=== PATIENT | female | born 1965 | race Caucasian/White ===

== ENCOUNTER 2017-02-02 06:13 | Outpatient (CLI) | payer MEDICAID ==
[~2017-02-02] VITALS: Ht 160 cm; Wt 56.7 kg
[2017-02-02] VITALS (12 sets, daily range): BP systolic 104–139; BP diastolic 69–94
[2017-02-02] MEDS ORDERED: IV NORMAL SALINE 1000ML BAG 1,000 ML IV SCH (06:38)
[2017-02-02 07:24] LABS: HEMOGLOBIN 13.8 g/dL (12.0-15.5); RED BLOOD COUNT 4.18 x10^6/uL (3.50-5.40); RED CELL DISTRIBUTION WIDTH 13.5 % (11.5-14.5); WHITE BLOOD COUNT 7.6 x10^3/uL (4.0-11.0)
[2017-02-02] MEDS ORDERED: LIDOCAINE 2% 20 ML VIAL. ONE (07:28)
[2017-02-02] MEDS ORDERED: IOHEXOL 350 MG/ML 100 ML VIAL. ONE (07:28)
[2017-02-02] MEDS ORDERED: HEPARIN for ARTERIAL LINE 1,500 ML ONE (07:28)
[2017-02-02 07:31] LABS: CALCIUM 9.5 mg/dL (8.5-10.1); CREATININE 0.6 mg/dL (0.6-1.0); POTASSIUM 3.9 mmol/L (3.5-5.1)
[2017-02-02] MEDS ORDERED: CYCL10TA2 PO (07:41)
[2017-02-02] MEDS ORDERED: ASPI81TA2 PO (07:41)
[2017-02-02] MEDS ORDERED: NAPR500T3 PO (07:41)
[2017-02-02] MEDS ORDERED: ATOR10TA60 PO (07:41)
[2017-02-02] MEDS ORDERED: VENL75CA PO (07:41)
[2017-02-02] MEDS ORDERED: ASPIRIN 325 MG TABLET PO ONE (07:45)
[2017-02-02 07:47] LABS: INR 0.9 (0.8-1.1); PROTHROMBIN TIME PATIENT 11.3 SEC (11.7-14.0)
[2017-02-02] MEDS ORDERED: VERAPAMIL 5 MG/2 ML VIAL. ONE (08:09)
[2017-02-02] MEDS ORDERED: NITROGLYCERIN 200 MCG/2 ML SYRINGE FOR CATH/VASC LAB. ONE (08:09)
[2017-02-02] MEDS ORDERED: HEPARIN for IV BOLUS 10,000 UNIT/10 ML VIAL. ONE (08:09)
[2017-02-02] MEDS ORDERED: FENTANYL PF 100 MCG/2 ML VIAL. ONE (08:09)
[2017-02-02] MEDS ORDERED: MIDAZOLAM HCL/PF 2 MG/2 ML VIAL. ONE (08:09)
[2017-02-02] MEDS ORDERED: NITROGLYCERIN 200 MCG/2 ML SYRINGE FOR CATH/VASC LAB. IART ONE (08:45)
[2017-02-02] MEDS ORDERED: HEPARIN for IV BOLUS 10,000 UNIT/10 ML VIAL. IART ONE (08:45)
[2017-02-02] MEDS ORDERED: FENTANYL PF 100 MCG/2 ML VIAL. IV ONE (08:45)
[2017-02-02] MEDS ORDERED: IOHEXOL 350 MG/ML 100 ML VIAL. IART ONE (08:45)
[2017-02-02] MEDS ORDERED: LIDOCAINE 2% 20 ML VIAL. IJ ONE (08:45)
[2017-02-02] MEDS ORDERED: VERAPAMIL 5 MG/2 ML VIAL. IART ONE (08:45)
[2017-02-02] MEDS ORDERED: MIDAZOLAM HCL/PF 2 MG/2 ML VIAL. IV ONE (08:45)
[2017-02-02] MEDS ORDERED: ACETAMINOPHEN 325 MG TABLET. PO PRN (09:00)
[2017-02-02] MEDS ORDERED: NITROGLYCERIN SUBLINGUAL 0.4 MG BOTTLE OF 25. SL PRN (09:00)
[2017-02-02] MEDS ORDERED: CONTRAST GIVEN MC PRN (09:00)
[2017-02-02] MEDS ORDERED: 0.9 % SODIUM CHLORIDE 10 ML DISP.SYRIN. IV PRN (09:00)
[2017-02-02] MEDS ORDERED: SULFUR HEXAFLUORIDE MICROSPHR 25 MG VIAL. IVP ONE ×2 (09:13→10:00)
--- NOTE | 2017-02-02 10:02 | CARD ---
APPROVED REPORT Procedure(s) performed: Coronary angiography HISTORY : The patient is a 51 year-old female with a history of . INDICATION The indication(s) include : positive stress test. PROCEDURE NARRATIVE The patient was brought electively to the cardiac catheterization lab. A timeout was performed confi rming the patient's name, date of , procedure, and site of procedure. All necessary personnel w ere wearing the appropriate protective equipment and radiation monitor devices. After explaining the risks and benefits of the procedure and alternatives, informed consent was obtained. (See nursing no zahra for medications administered). The right wrist was sterilely prepped and draped in the usual fas hion. The right wrist was infiltrated with 1 mL of 2% lidocaine for subcutaneous anesthesia. A 6 Fr ench Terumo glide sheath was inserted into the right radial artery without difficulty. Right and lef t coronary angiography was performed using a 6Fr TIG 4.0 catheter. Left ventricular end diastolic pr essure was unable to be obtained due to tortuousity and short aortic arch. All catheter exchanges an d advancements were performed over a guidewire. At case completion the right radial sheath was remov ed and a Terumo radial band was applied with 11 ml of air. The patient tolerated the procedure well and there were no immediate complications. HEMODYNAMICS: LVEDP 18 mm Hg No gradient on LV to aortic pullback. CORONARY ANGIOGRAPHY: LM is a large caliber vessel with normal angiographic appearance. LAD is a large caliber vessel with mild diffuse luminal irregularities and a proximal to mid 30% sten osis. There is mild mid myocardial bridging. Ramus is a moderate caliber vessel with normal angiographic appearance. LCx is a moderate caliber non-dominant vessel with normal angiographic appearance. OM1 is a moderate caliber vessel with normal angiographic appearance. RCA is a large caliber dominant vessel with normal angiographic appearance. RPDA and RPL are moderate caliber vessels with normal angiographic appearance.
--- NOTE | 2017-02-02 14:58 | CARD ---
APPROVED REPORT EXAM: LIMITED Two-dimensional echocardiogram with contrast. Other Information Quality : Average Rhythm : NSR INDICATION LV Function:Systolic Echo Enhancing Agent Indication: Endocardial border delineation Agent/Amount Used: Lumason 2mL LEFT VENTRICLE The left ventricle is normal size. There is normal left ventricular wall thickness. Left ventricle sy stolic function is mildly impaired. The Ejection Fraction is 40-45%. Akinesis in the septum, mid to d istal anterior boogie and apex. RIGHT VENTRICLE The right ventricle is normal size. The right ventricular systolic function is normal. ATRIA The left atrium size is normal. The right atrium size is normal. GREAT VESSELS The aortic root is normal in size. PERICARDIAL EFFUSION There is no evidence of significant pericardial effusion. Critical Notification Critical Value: No <Conclusion> Left ventricle systolic function is mildly impaired. The Ejection Fraction is 40-45%. Akinesis in the septum, mid to distal anterior boogie and apex. Limited echo for LV wall motion and function only.
== END 2017-02-02 11:20 | disposition home or self-care (01) ==
LOC: CCL 06:13
PROVIDERS: ATTEND Internal Medicine Cardiovascular Disease
DX: I25.10 Atherosclerotic heart disease of native coronary artery without angina pectoris (principal); Q24.5 Malformation of coronary vessels; E78.00 Pure hypercholesterolemia, unspecified; K21.9 Gastro-esophageal reflux disease without esophagitis; F41.9 Anxiety disorder, unspecified; F32.9 Major depressive disorder, single episode, unspecified; Z72.0 Tobacco use
CPT/HCPCS: 36415; 80048; 85027; 85610; 93308; 93454; C1769; C1892; J2250; J3010; J3490; J7030; Q9967; C8924; Q9950

== ENCOUNTER 2021-01-17 18:58 | Inpatient (IN) | payer MEDICAID ==
[2021-01-17] VITALS (9 sets, daily range): BP systolic 74–122; BP diastolic 41–83
[~2021-01-17] VITALS: Ht 170.2 cm; Wt 52.3 kg
[~2021-01-17 18:58] MED LIST: ASPI-630 PO; ATOR10TA60 PO; CYCL10TA2 PO; NAPR-514 PO; VENL75CA PO
[2021-01-17] MEDS ORDERED: HALOPERIDOL LACTATE 5 MG/ML VIAL. IVP PRN (21:15)
[2021-01-17] MEDS ORDERED: diphenhydrAMINE 50 MG/ML VIAL IVP PRN (21:15)
[2021-01-17] MEDS ORDERED: NOREPINEPHRINE VIAL 8 MG in IV DEXTROSE 5% 250 ML IV PRN (21:45)
[2021-01-17] MEDS ORDERED: POTASSIUM CL 40MEQ IN 0.9%NACL 1,000 ML IV SCH (21:45)
[2021-01-17] MEDS: POTASSIUM CHLORIDE 20MEQ 100 ML IV SCH ×2 (21:56→23:31)
[2021-01-17] MEDS ORDERED: HYDR25TA PO (23:11)
[2021-01-17] MEDS ORDERED: CARV6.2511 PO (23:11)
[2021-01-17] MEDS ORDERED: DULO30CA2 PO (23:11)
[2021-01-18] VITALS (29 sets, daily range): BP systolic 90–149; BP diastolic 50–94
[2021-01-18] MEDS: POTASSIUM CL 40MEQ IN 0.9%NACL 1,000 ML IV SCH ×2 (03:19→16:54)
[2021-01-18 05:21] LABS: CALCIUM 6.8 mg/dL (8.5-10.1); CREATININE 1.7 mg/dL (0.6-1.0); GFR 31.1; MAGNESIUM 1.9 mg/dL (1.8-2.4)
[2021-01-18 05:25] LABS: POTASSIUM 2.8 mmol/L (3.5-5.1)
[2021-01-18] MEDS: POTASSIUM CHLORIDE 20MEQ 100 ML IV SCH ×4 (07:16→10:52)
[2021-01-18 07:36] LABS: BASO % 0 % (0-3); EOS % 0 % (0-3); HEMATOCRIT 30.2 % (36.0-47.0); HEMOGLOBIN 10.7 g/dL (12.0-15.5); LYMPH # 1.4 x10^3/uL (1.0-4.8); LYMPH % 14 % (24-48); MEAN CORPUSCULAR HEMOGLOBIN 38 pg (25-35); MEAN CORPUSCULAR HGB CONC 36 g/dL (31-37); MEAN CORPUSCULAR VOLUME 106 fL (79-100); MONO # 0.6 x10^3/uL (0.0-1.1); MONO % 5 % (0-9); NEUT # 8.6 x10^3/uL (1.8-7.7); NEUT % 81 % (31-73); PLATELET COUNT 63 x10^3/uL (140-400); RED BLOOD COUNT 2.86 x10^6/uL (3.50-5.40); RED CELL DISTRIBUTION WIDTH 16.4 % (11.5-14.5); WHITE BLOOD COUNT 10.7 x10^3/uL (4.0-11.0)
[2021-01-18] MEDS: ELECTROLYTE (ICU) PROTOCOL. MC SCH (09:00)
--- NOTE | 2021-01-18 12:06 | PDOC2 ---
CONSULT Date of Consult Date of Consult DATE: 01/18/21 TIME: 11:53 Reason for Consult Reason for Consult: UTI antibiotic management Referring Physician Referring Physician: Dr. Christian Identification/Chief Complaint Chief Complaint Sepsis Source Source: Chart review History of Present Illness Reason for Visit: 55-year-old female who is currently admitted to [facility] ICU .patient is a poor historian .she obtained from chart and medical staff . She presented to [facility] via EMS for suspected seizure. Patient was found to have fallen down 3-4 steps in the kitchen and hit her head without loss of consciousness by a witness at home. There was report of self-limiting seizure-like activity. There was a postictal phase reported. EMS was called. Patient was found tachycardic on their arrival and was noncooperative. Patient had received thiamine lorazepam. White count was 14.2. Lactate of 7.3. CK of 1657. Acetone was negative acetaminophen level was 2.0. UA showed 5-10 WBCs large blood. Patient was started on ceftriaxone. CT head showed no acute intracranial abdominal injury. Negative CT C-spine for acute traumatic injury. Chest x-ray showed no new region of airspace consolidation. Demonstration of distal right clavicle fracture again. There is also repeat demonstration of widening of the coracoclavicular space which could be associated ligamentous injury. Patient underwent central line placement in the left IJ. Patient was felt to have non-STEMI. Was transferred to [facility] ICU for further evaluation and treatment. Today patient is alert awake. Denies any pain. Remains confused. Asking for water. Denies any fever, nausea, vomiting, diarrhea, chest pain, abdominal pain or symptoms. Past Medical History Past Medical History Atrial fibrillation anxiety coronary artery disease depression fibromyalgia hyperlipidemia hypothyroidism history of [place] Social History Social History History of heavy smoking, heavy alcohol, no drug abuse Current Medications Current Medications Current Medications Potassium Chloride/Water 100 ml @ 100 mls/hr Q1H IV Last administered on 01/17/21at 23:31; Start 01/17/21 at 21:45; Stop 01/17/21 at 23:44; Status DC Lorazepam (Ativan Inj) 2 mg PRN Q1HR PRN IV For CIWA 8-14; Start 01/17/21 at 21:15 Lorazepam (Ativan Inj) 4 mg PRN Q1HR PRN IV For CIWA 15 or greater; Start 01/17/21 at 21:15 Haloperidol Lactate (Haldol Inj) 5 mg PRN Q4HRS PRN IVP Hallucinatns,Confusn,Delirium; Start 01/17/21 at 21:15 Diphenhydramine HCl (Benadryl) 25 mg PRN Q15MIN PRN IVP EPS symptoms 2'Haldol admin; Start 01/17/21 at 21:15 Lorazepam (Ativan Inj) 2 mg PRN Q15MIN PRN IV SEE COMMENTS; Start 01/17/21 at 21:15 Lorazepam (Ativan Inj) 4 mg PRN Q15MIN PRN IV SEE COMMENTS; Start 01/17/21 at 21:15 Lorazepam (Ativan Inj) 4 mg 1X ONCE IVP ; Start 01/17/21 at 21:45; Stop 01/17/21 at 21:46; Status DC Ceftriaxone Sodium (Rocephin) 1 gm Q24H IVP ; Start 01/18/21 at 21:00 Info (Icu Electrolyte Protocol) 1 ea DAILY MC Last administered on 01/18/21at 09:00; Start 01/18/21 at 09:00 Potassium Chloride/Sodium Chloride 1,000 ml @ 125 mls/hr Q8H IV ; Start at 21:45; Stop 01/17/21 at 22:10; Status DC Norepinephrine Bitartrate 8 mg/ Dextrose 258 ml @ 9.501 mls/ hr CONT PRN IV PER PROTOCOL; Start 01/17/21 at 21:45 Potassium Chloride/Sodium Chloride 1,000 ml @ 125 mls/hr Q8H IV Last administered on 01/18/21at 03:19; Start 01/18/21 at 00:00 Potassium Chloride/Water 100 ml @ 100 mls/hr Q1H IV Last administered on 01/18/21at 10:52; Start 01/18/21 at 06:45; Stop 01/18/21 at 10:44; Status DC Active Scripts Active Reported Carvedilol (Carvedilol) 6.25 Mg Tablet 6.25 Mg PO BIDWMEALS Hydroxyzine Hcl 25 Mg Tablet 1 Tab PO HS Cymbalta (Duloxetine Hcl) 30 Mg Capsule. 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 moves all 4 extremity Derm warm dry no generalized rash, callus present over both soles Psych calm cooperative Left IJ clean Vitals VITALS Vital Signs Date Time Temp Pulse Resp B/P (MAP) Pulse Ox O2 Delivery O2 Flow Rate FiO2 01/18/21 11:47 Room Air 01/18/21 11:10 93 19 111/72 (85) 98 01/18/21 08:12 98.6 98.6 Labs Labs Laboratory Tests Test 01/18/21 04:30 01/18/21 07:15 Sodium Level 128 mmol/L (136-145) Potassium Level 2.8 mmol/L (3.5-5.1) Chloride Level 91 mmol/L (98-107) Carbon Dioxide Level 26 mmol/L (21-32) Anion Gap 11 (6-14) Blood Urea Nitrogen 29 mg/dL (7-20) Creatinine 1.7 mg/dL (0.6-1.0) Estimated GFR (Cockcroft-Gault) 31.1 Glucose Level 64 mg/dL (70-99) Calcium Level 6.8 mg/dL (8.5-10.1) Magnesium Level 1.9 mg/dL (1.8-2.4) White Blood Count 10.7 x10^3/uL (4.0-11.0) Red Blood Count 2.86 x10^6/uL (3.50-5.40) Hemoglobin 10.7 g/dL (12.0-15.5) Hematocrit 30.2 % (36.0-47.0) Mean Corpuscular Volume 106 fL (79-100) Mean Corpuscular Hemoglobin 38 pg (25-35) Mean Corpuscular Hemoglobin Concent 36 g/dL (31-37) Red Cell Distribution Width 16.4 % (11.5-14.5) Platelet Count 63 x10^3/uL (140-400) Neutrophils (%) (Auto) 81 % (31-73) Lymphocytes (%) (Auto) 14 % (24-48) Monocytes (%) (Auto) 5 % (0-9) Eosinophils (%) (Auto) 0 % (0-3) Basophils (%) (Auto) 0 % (0-3) Neutrophils # (Auto) 8.6 x10^3/uL (1.8-7.7) Lymphocytes # (Auto) 1.4 x10^3/uL (1.0-4.8) Monocytes # (Auto) 0.6 x10^3/uL (0.0-1.1) Eosinophils # (Auto) 0.0 x10^3/uL (0.0-0.7) Basophils # (Auto) 0.0 x10^3/uL (0.0-0.2) Laboratory Tests Test 01/18/21 04:30 01/18/21 07:15 Sodium Level 128 mmol/L (136-145) Potassium Level 2.8 mmol/L (3.5-5.1) Chloride Level 91 mmol/L (98-107) Carbon Dioxide Level 26 mmol/L (21-32) Anion Gap 11 (6-14) Blood Urea Nitrogen 29 mg/dL (7-20) Creatinine 1.7 mg/dL (0.6-1.0) Estimated GFR (Cockcroft-Gault) 31.1 Glucose Level 64 mg/dL (70-99) Calcium Level 6.8 mg/dL (8.5-10.1) Magnesium Level 1.9 mg/dL (1.8-2.4) White Blood Count 10.7 x10^3/uL (4.0-11.0) Red Blood Count 2.86 x10^6/uL (3.50-5.40) Hemoglobin 10.7 g/dL (12.0-15.5) Hematocrit 30.2 % (36.0-47.0) Mean Corpuscular Volume 106 fL (79-100) Mean Corpuscular Hemoglobin 38 pg (25-35) Mean Corpuscular Hemoglobin Concent 36 g/dL (31-37) Red Cell Distribution Width 16.4 % (11.5-14.5) Platelet Count 63 x10^3/uL (140-400) Neutrophils (%) (Auto) 81 % (31-73) Lymphocytes (%) (Auto) 14 % (24-48) Monocytes (%) (Auto) 5 % (0-9) Eosinophils (%) (Auto) 0 % (0-3) Basophils (%) (Auto) 0 % (0-3) Neutrophils # (Auto) 8.6 x10^3/uL (1.8-7.7) Lymphocytes # (Auto) 1.4 x10^3/uL (1.0-4.8) Monocytes # (Auto) 0.6 x10^3/uL (0.0-1.1) Eosinophils # (Auto) 0.0 x10^3/uL (0.0-0.7) Basophils # (Auto) 0.0 x10^3/uL (0.0-0.2) Assessment/Plan Assessment/Plan Encephalopathy Seizure-like activity on presentation at [facility], no further seizure activity reported Sepsis now resolved Leukocytosis UTI Hematuria Anemia and thrombocytopenia Hypokalemia and hyponatremia, FRANCESCA Atrial fibrillation History of fall POA History of anxiety, depression Fibromyalgia Hyperlipidemia CAD Tobaccoism Heavy EtOH dependence Right distal clavicular fracture and widening of the coracoclavicular space which could be associated ligamentous injury Recommendations Continue Rocephin Follow-up labs and cultures Urine cultures negative so far from [facility] Maintain aspiration precaution Supportive care OZIEL LANGSTON MD Jan 18, 2021 12:06
[2021-01-18 12:54] LABS: BASO % 0 % (0-3); EOS % 0 % (0-3); HEMATOCRIT 30.5 % (36.0-47.0); HEMOGLOBIN 10.6 g/dL (12.0-15.5); LYMPH # 1.8 x10^3/uL (1.0-4.8); LYMPH % 17 % (24-48); MEAN CORPUSCULAR HEMOGLOBIN 37 pg (25-35); MEAN CORPUSCULAR HGB CONC 35 g/dL (31-37); MEAN CORPUSCULAR VOLUME 107 fL (79-100); MONO # 0.7 x10^3/uL (0.0-1.1); MONO % 7 % (0-9); NEUT # 8.1 x10^3/uL (1.8-7.7); NEUT % 76 % (31-73); PLATELET COUNT 67 x10^3/uL (140-400); RED BLOOD COUNT 2.84 x10^6/uL (3.50-5.40); RED CELL DISTRIBUTION WIDTH 16.5 % (11.5-14.5); WHITE BLOOD COUNT 10.7 x10^3/uL (4.0-11.0)
--- NOTE | 2021-01-18 12:59 | PDOC2 ---
CONSULT Date of Consult Date of Consult DATE: 01/18/21 TIME: 12:44 Reason for Consult Reason for Consult: FRANCESCA and E-Lyte abnormalities Identification/Chief Complaint Chief Complaint Currently No complaints, sleeping, hard to wake her up, INtermittent confusion per nursing Source Source: Chart review History of Present Illness Reason for Visit: 55-year-old CF admitted to [facility] ICU She presented to [facility] via EMS on 01/17 for suspected seizure. She was found to have fallen down 3-4 steps in the kitchen and hit her head without loss of consciousness by a witness at home. There was report of self-limiting seizure-like activity and postictal phase reported. EMS was called. Patient was found tachycardic on their arrival and was noncooperative. Patient had received thiamine lorazepam. I was paged by [facility] ER provider to discuss management plan for FRANCESCA and E-Lytes. . Patient was felt to have non-STEMI and transferred to [facility] patient is a poor historian .she obtained from chart and medical staff . No report of N/V/D. No SOB or CP. No reported urinary complaints. Lai placed at [facility] . Pt started on IVF, replaced e-Lytes, UA done as recommended Currently sleeping , difficult to arouse. Per nursing has been awake, intermittent confusion . Denies any pain. Remains confused. Asking for water. Denies any fever, nausea, vomiting, diarrhea, chest pain, abdominal pain or symptoms. White count was 14.2. Lactate of 7.3. CK of 1657. Acetone was negative acetaminophen level was 2.0. UA showed 5-10 WBCs large blood. Patient was started on ceftriaxone. CT head showed no acute intracranial abdominal injury. Negative CT C-spine for acute traumatic injury. Chest x-ray showed no new region of airspace consolidation. Demonstration of distal right clavicle fracture again. There is also repeat demonstration of widening of the coracoclavicular space which could be associated ligamentous injury. Past Medical History Past Medical History Atrial fibrillation anxiety coronary artery disease depression fibromyalgia hyperlipidemia hypothyroidism history of [place] Family History Family History Unable to Obtain 2/2 AMS and poor historian Social History Social History History of heavy smoking, heavy alcohol, no drug abuse Current Medications Current Medications Current Medications Potassium Chloride/Water 100 ml @ 100 mls/hr Q1H IV Last administered on 01/17/21at 23:31; Start 01/17/21 at 21:45; Stop 01/17/21 at 23:44; Status DC Lorazepam (Ativan Inj) 2 mg PRN Q1HR PRN IV For CIWA 8-14; Start 01/17/21 at 21:15 Lorazepam (Ativan Inj) 4 mg PRN Q1HR PRN IV For CIWA 15 or greater; Start 01/17/21 at 21:15 Haloperidol Lactate (Haldol Inj) 5 mg PRN Q4HRS PRN IVP Hallucinatns,Confusn,Delirium; Start 01/17/21 at 21:15 Diphenhydramine HCl (Benadryl) 25 mg PRN Q15MIN PRN IVP EPS symptoms 2'Haldol admin; Start 01/17/21 at 21:15 Lorazepam (Ativan Inj) 2 mg PRN Q15MIN PRN IV SEE COMMENTS; Start 01/17/21 at 21:15 Lorazepam (Ativan Inj) 4 mg PRN Q15MIN PRN IV SEE COMMENTS; Start 01/17/21 at 21:15 Lorazepam (Ativan Inj) 4 mg 1X ONCE IVP ; Start 01/17/21 at 21:45; Stop 01/17/21 at 21:46; Status DC Ceftriaxone Sodium (Rocephin) 1 gm Q24H IVP ; Start 01/18/21 at 21:00 Info (Icu Electrolyte Protocol) 1 ea DAILY MC Last administered on 01/18/21at 09:00; Start 01/18/21 at 09:00 Potassium Chloride/Sodium Chloride 1,000 ml @ 125 mls/hr Q8H IV ; Start 01/17/21 at 21:45; Stop 01/17/21 at 22:10; Status DC Norepinephrine Bitartrate 8 mg/ Dextrose 258 ml @ 9.501 mls/ hr CONT PRN IV PER PROTOCOL; Start 01/17/21 at 21:45 Potassium Chloride/Sodium Chloride 1,000 ml @ 125 mls/hr Q8H IV Last administered on 01/18/21at 03:19; Start 01/18/21 at 00:00 Potassium Chloride/Water 100 ml @ 100 mls/hr Q1H IV Last administered on 01/18/21at 10:52; Start 01/18/21 at 06:45; Stop 3/19/21 at 10:44; Status DC Active Scripts Active Reported Carvedilol (Carvedilol) 6.25 Mg Tablet 6.25 Mg PO BIDWMEALS Hydroxyzine Hcl 25 Mg Tablet 1 Tab PO HS Cymbalta (Duloxetine Hcl) 30 Mg Capsule. 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 moves all 4 extremity Derm warm dry no generalized rash Psych sleeping Lai +, No CVA or SP tenderness Vital Signs Vital Signs Date Time Temp Pulse Resp B/P (MAP) Pulse Ox O2 Delivery O2 Flow Rate FiO2 01/18/21 12:00 98.4 93 25 96/60 (72) 98 Room Air 98.4 Assessment & Plan FRANCESCA - Pre-renal/Vasomotor ,Low BP, Improving with IVF Cr 3.9 POA to 1.7 , Mildly elevated CK Supportive care, I/O, avoid nephrotoxins Monitor daily am labs and CK UTI - ID managing HypoNatremia- stable , continue IVF, monitor HypoKalemia- replacing HypoMg - severe POA, resolved post replacement Encephalopathy - Improved since presentation, currently intermittent confusion Seizure-like activity on presentation at [facility], no further seizure activity reported Anemia and thrombocytopenia Atrial fibrillation History of fall POA CAD Tobaccoism Heavy EtOH dependence- UDS positive for ETOH Right distal clavicular fracture and widening of the coracoclavicular space which could be associated ligamentous injury Labs Labs Laboratory Tests Test 01/18/21 04:30 01/18/21 07:15 Sodium Level 128 mmol/L (136-145) Potassium Level 2.8 mmol/L (3.5-5.1) Chloride Level 91 mmol/L (98-107) Carbon Dioxide Level 26 mmol/L (21-32) Anion Gap 11 (6-14) Blood Urea Nitrogen 29 mg/dL (7-20) Creatinine 1.7 mg/dL (0.6-1.0) Estimated GFR (Cockcroft-Gault) 31.1 Glucose Level 64 mg/dL (70-99) Calcium Level 6.8 mg/dL (8.5-10.1) Magnesium Level 1.9 mg/dL (1.8-2.4) White Blood Count 10.7 x10^3/uL (4.0-11.0) Red Blood Count 2.86 x10^6/uL (3.50-5.40) Hemoglobin 10.7 g/dL (12.0-15.5) Hematocrit 30.2 % (36.0-47.0) Mean Corpuscular Volume 106 fL (79-100) Mean Corpuscular Hemoglobin 38 pg (25-35) Mean Corpuscular Hemoglobin Concent 36 g/dL (31-37) Red Cell Distribution Width 16.4 % (11.5-14.5) Platelet Count 63 x10^3/uL (140-400) Neutrophils (%) (Auto) 81 % (31-73) Lymphocytes (%) (Auto) 14 % (24-48) Monocytes (%) (Auto) 5 % (0-9) Eosinophils (%) (Auto) 0 % (0-3) Basophils (%) (Auto) 0 % (0-3) Neutrophils # (Auto) 8.6 x10^3/uL (1.8-7.7) Lymphocytes # (Auto) 1.4 x10^3/uL (1.0-4.8) Monocytes # (Auto) 0.6 x10^3/uL (0.0-1.1) Eosinophils # (Auto) 0.0 x10^3/uL (0.0-0.7) Basophils # (Auto) 0.0 x10^3/uL (0.0-0.2) Laboratory Tests Test 01/18/21 04:30 01/18/21 07:15 Sodium Level 128 mmol/L (136-145) Potassium Level 2.8 mmol/L (3.5-5.1) Chloride Level 91 mmol/L (98-107) Carbon Dioxide Level 26 mmol/L (21-32) Anion Gap 11 (6-14) Blood Urea Nitrogen 29 mg/dL (7-20) Creatinine 1.7 mg/dL (0.6-1.0) Estimated GFR (Cockcroft-Gault) 31.1 Glucose Level 64 mg/dL (70-99) Calcium Level 6.8 mg/dL (8.5-10.1) Magnesium Level 1.9 mg/dL (1.8-2.4) White Blood Count 10.7 x10^3/uL (4.0-11.0) Red Blood Count 2.86 x10^6/uL (3.50-5.40) Hemoglobin 10.7 g/dL (12.0-15.5) Hematocrit 30.2 % (36.0-47.0) Mean Corpuscular Volume 106 fL (79-100) Mean Corpuscular Hemoglobin 38 pg (25-35) Mean Corpuscular Hemoglobin Concent 36 g/dL (31-37) Red Cell Distribution Width 16.4 % (11.5-14.5) Platelet Count 63 x10^3/uL (140-400) Neutrophils (%) (Auto) 81 % (31-73) Lymphocytes (%) (Auto) 14 % (24-48) Monocytes (%) (Auto) 5 % (0-9) Eosinophils (%) (Auto) 0 % (0-3) Basophils (%) (Auto) 0 % (0-3) Neutrophils # (Auto) 8.6 x10^3/uL (1.8-7.7) Lymphocytes # (Auto) 1.4 x10^3/uL (1.0-4.8) Monocytes # (Auto) 0.6 x10^3/uL (0.0-1.1) Eosinophils # (Auto) 0.0 x10^3/uL (0.0-0.7) Basophils # (Auto) 0.0 x10^3/uL (0.0-0.2) Review All relevant outside records, renal labs, imaging studies, telemetry/EKG's were reviewed. Images Images As per HPI NATACHA RIVERA MD Jan 18, 2021 12:59
[2021-01-18 13:02] LABS: CALCIUM 6.6 mg/dL (8.5-10.1); CREATININE 1.2 mg/dL (0.6-1.0); GFR 46.5; POTASSIUM 3.4 mmol/L (3.5-5.1)
--- NOTE | 2021-01-18 13:02 | HP ---
ADMIT DATE: 01/17/2021 CHIEF COMPLAINT: Seizure activity, hypotension. HISTORY OF PRESENT ILLNESS: The patient is a pleasant 55-year-old female who originally presented to [facility] last night apparently family members witnessed a seizure activity. There was a postictal state as well. Prior to the seizure, she had been drinking. She also fell and hit her head a couple times in the kitchen. While at [facility], they noticed that her troponin was little high as well. They were concerned she could have an acute CT. She was transferred here to our ICU where we have consulted Cardiology, Infectious Disease and Nephrology as she has renal failure. PAST MEDICAL HISTORY: Probable alcohol issues, hypertension, depression, anxiety. ALLERGIES: None. FAMILY HISTORY: Depression. SOCIAL HISTORY: She drinks. I am not sure if she smokes or takes drugs. MEDICATIONS: Reviewed. She is on carvedilol 6.25 b.i.d., Cymbalta 30 a day and hydroxyzine 25 at bedtime. REVIEW OF SYSTEMS: Unable to obtain. The patient is sedated. PHYSICAL EXAMINATION: VITALS: Within normal limits and are stable. GENERAL: She is sedated. HEENT: Normal cephalic atraumatic, external auditory canals are patent EYES: Extraocular muscles are intact, pupils are equally round and reactive to light and accommodation MUSCULOSKELETAL: Well developed, well nourished, good range of motion ENDOCRINE: No thyromegaly was palpated LYMPHATICS: No cervical chain or axillary nodes were noted HEMATOPOIETIC: No bruising NECK: Supple, no JVD, no thyromegaly was noted. LUNGS: Clear to auscultation in all lung klein without rhonchi or wheezing. HEART: RRR, S1, S2 present. Peripheral pulses intact, no obvious murmurs were noted. ABDOMEN: Soft, nontender. Positive bowel sounds no organomegaly, normal bowel sounds. EXTREMITIES: Without any cyanosis, clubbing, or edema. Pedal pulses intact, Homans sign is negative. NEUROLOGIC: She is sedated. PSYCHIATRIC: She is sedated. SKIN: No ulcerations or rashes, good skin turgor, no jaundice. VASCULAR: Good capillary refill, neurovascular bundle appears to be intact. LABORATORY DATA: Electrolytes: Sodium 128, potassium 2.8, chloride 91, bicarbonate 26, BUN 29, creatinine 1.7, glucose 64. White count 10.7, hemoglobin 10.7, platelets 63. IMAGING: Pending. ASSESSMENT AND PLAN: Probable alcohol issues with seizure activity, hypotension, severe electrolyte disturbance, acute kidney injury, possible myocardial infarction. The patient has been admitted to the ICU. We have consulted Cardiology, Nephrology, and Infectious Disease. She is receiving IV ceftriaxone, IV fluids. She is on Levophed drip, p.r.n. Ativan, alcohol withdrawal protocol, p.r.n. Haldol. Trend labs. Replace potassium, IV normal saline to help correct her hyponatremia. NASIMA hose lower extremities. Seizure precautions. Lai to bedside drainage. Cardiac monitoring, serial enzymes, serial EKGs. PROGNOSIS: Guarded. CC TIME: 32 minutes. NAVID SOLORZANO DO DR: [email or web address] JOB#: [id number] / [id number]
--- NOTE | 2021-01-18 14:58 | PDOC2 ---
CONSULT Date of Consult Date of Consult DATE: 01/18/21 TIME: 14:52 Reason for Consult Reason for Consult: Elevated troponin. Referring Physician Referring Physician: Dr. Christian Identification/Chief Complaint Chief Complaint Possible seizure. Source Source: Chart review, Patient History of Present Illness Reason for Visit: The patient is a 55-year-old female who had a reported out of hospital seizure. She was brought to the emergency room at [facility]. Initial testing showed a CT head scan that showed no acute changes, a CT exam of the spine that also showed no acute changes and a chest x-ray that showed no acute infiltrates. An EKG showed a sinus rhythm with some T wave inversion. Initial magnesium level was 0.8, lactic acid 7.3 and her troponin elevated 2.362. Patient was confused on admission and there is no reported report complaints of chest pain. He has a history of significant hypertension, alcohol abuse and a possible history of paroxysmal atrial fibrillation although she is in sinus rhythm at this time. She did have a cardiac catheterization on 02/02/17 that showed a 30% lesion in the LAD. She was transferred to [place] for further treatment and evaluation. She apparently is more comfortable this time but still is confused. She is being worked up by ID and renal at this time. Remains in a sinus rhythm. Past Medical History Cardiovascular: AFIB, CAD, HTN, Hyperlipidemia Past Surgical History Past Surgical History: No pertinent history Family History Family History: Heart Disease Social History 1 pack per day ALCOHOL: heavy Current Medications Current Medications Current Medications Potassium Chloride/Water 100 ml @ 100 mls/hr Q1H IV Last administered on 01/17/21at 23:31; Start 01/17/21 at 21:45; Stop 01/17/21 at 23:44; Status DC Lorazepam (Ativan Inj) 2 mg PRN Q1HR PRN IV For CIWA 8-14; Start 01/17/21 at 21:15 Lorazepam (Ativan Inj) 4 mg PRN Q1HR PRN IV For CIWA 15 or greater; Start 01/17/21 at 21:15 Haloperidol Lactate (Haldol Inj) 5 mg PRN Q4HRS PRN IVP Jovon lucinatns,Confusn,Delirium; Start 01/17/21 at 21:15 Diphenhydramine HCl (Benadryl) 25 mg PRN Q15MIN PRN IVP EPS symptoms 2'Haldol admin; Start 01/17/21 at 21:15 Lorazepam (Ativan Inj) 2 mg PRN Q15MIN PRN IV SEE COMMENTS; Start 01/17/21 at 21:15 Lorazepam (Ativan Inj) 4 mg PRN Q15MIN PRN IV SEE COMMENTS; Start 01/17/21 at 21:15 Lorazepam (Ativan Inj) 4 mg 1X ONCE IVP ; Start 01/17/21 at 21:45; Stop 01/17/21 at 21:46; Status DC Ceftriaxone Sodium (Rocephin) 1 gm Q24H IVP ; Start 01/18/21 at 21:00 Info (Icu Electrolyte Protocol) 1 ea DAILY MC Last administered on 01/18/21at 09:00; Start 01/18/21 at 09:00 Potassium Chloride/Sodium Chloride 1,000 ml @ 125 mls/hr Q8H IV ; Start 01/17/21 at 21:45; Stop 01/17/21 at 22:10; Status DC Norepinephrine Bitartrate 8 mg/ Dextrose 258 ml @ 9.501 mls/ hr CONT PRN IV PER PROTOCOL; Start 01/17/21 at 21:45 Potassium Chloride/Sodium Chloride 1,000 ml @ 125 mls/hr Q8H IV Last administered on 01/18/21at 03:19; Start 01/18/21 at 00:00 Potassium Chloride/Water 100 ml @ 100 mls/hr Q1H IV Last administered on 01/18/21at 10:52; Start 01/18/21 at 06:45; Stop 01/18/21 at 10:44; Status DC Active Scripts Active Reported Carvedilol (Carvedilol) 6.25 Mg Tablet 6.25 Mg PO BIDWMEALS Hydroxyzine Hcl 25 Mg Tablet 1 Tab PO HS Cymbalta (Duloxetine Hcl) 30 Mg Capsule. 3 Cap PO DAILY Allergies Allergies: Coded Allergies: No Known Drug Allergies (Unverified , 02/02/17) ROS Review of System The patient is not able to give a review of systems at this time. Physical Exam General: Other (Lethargic) Lungs: Other (Minimally decreased breath sounds) Heart: Regular rate Abdomen: Normal bowel sounds Vitals VITALS Vital Signs Date Time Temp Pulse Resp B/P (MAP) Pulse Ox O2 Delivery O2 Flow Rate FiO2 01/18/21 14:02 92 24 119/65 (83) 97 Room Air 01/18/21 12:00 98.4 98.4 Labs Labs Laboratory Tests Test 01/18/21 04:30 01/18/21 07:15 01/18/21 12:39 Sodium Level 128 mmol/L (136-145) 135 mmol/L (136-145) Potassium Level 2.8 mmol/L (3.5-5.1) 3.4 mmol/L (3.5-5.1) Chloride Level 91 mmol/L (98-107) 97 mmol/L (98-107) Carbon Dioxide Level 26 mmol/L (21-32) 29 mmol/L (21-32) Anion Gap 11 (6-14) 9 (6-14) Blood Urea Nitrogen 29 mg/dL (7-20) 24 mg/dL (7-20) Creatinine 1.7 mg/dL (0.6-1.0) 1.2 mg/dL (0.6-1.0) Estimated GFR (Cockcroft-Gault) 31.1 46.5 Glucose Level 64 mg/dL (70-99) 57 mg/dL (70-99) Calcium Level 6.8 mg/dL (8.5-10.1) 6.6 mg/dL (8.5-10.1) Magnesium Level 1.9 mg/dL (1.8-2.4) White Blood Count 10.7 x10^3/uL (4.0-11.0) 10.7 x10^3/uL (4.0-11.0) Red Blood Count 2.86 x10^6/uL (3.50-5.40) 2.84 x10^6/uL (3.50-5.40) Hemoglobin 10.7 g/dL (12.0-15.5) 10.6 g/dL (12.0-15.5) Hematocrit 30.2 % (36.0-47.0) 30.5 % (36.0-47.0) Mean Corpuscular Volume 106 fL (79-100) 107 fL (79-100) Mean Corpuscular Hemoglobin 38 pg (25-35) 37 pg (25-35) Mean Corpuscular Hemoglobin Concent 36 g/dL (31-37) 35 g/dL (31-37) Red Cell Distribution Width 16.4 % (11.5-14.5) 16.5 % (11.5-14.5) Platelet Count 63 x10^3/uL (140-400) 67 x10^3/uL (140-400) Neutrophils (%) (Auto) 81 % (31-73) 76 % (31-73) Lymphocytes (%) (Auto) 14 % (24-48) 17 % (24-48) Monocytes (%) (Auto) 5 % (0-9) 7 % (0-9) Eosinophils (%) (Auto) 0 % (0-3) 0 % (0-3) Basophils (%) (Auto) 0 % (0-3) 0 % (0-3) Neutrophils # (Auto) 8.6 x10^3/uL (1.8-7.7) 8.1 x10^3/uL (1.8-7.7) Lymphocytes # (Auto) 1.4 x10^3/uL (1.0-4.8) 1.8 x10^3/uL (1.0-4.8) Monocytes # (Auto) 0.6 x10^3/uL (0.0-1.1) 0.7 x10^3/uL (0.0-1.1) Eosinophils # (Auto) 0.0 x10^3/uL (0.0-0.7) 0.0 x10^3/uL (0.0-0.7) Basophils # (Auto) 0.0 x10^3/uL (0.0-0.2) 0.0 x10^3/uL (0.0-0.2) Laboratory Tests Test 01/18/21 04:30 01/18/21 07:15 01/18/21 12:39 Sodium Level 128 mmol/L (136-145) 135 mmol/L (136-145) Potassium Level 2.8 mmol/L (3.5-5.1) 3.4 mmol/L (3.5-5.1) Chloride Level 91 mmol/L (98-107) 97 mmol/L (98-107) Carbon Dioxide Level 26 mmol/L (21-32) 29 mmol/L (21-32) Anion Gap 11 (6-14) 9 (6-14) Blood Urea Nitrogen 29 mg/dL (7-20) 24 mg/dL (7-20) Creatinine 1.7 mg/dL (0.6-1.0) 1.2 mg/dL (0.6-1.0) Estimated GFR (Cockcroft-Gault) 31.1 46.5 Glucose Level 64 mg/dL (70-99) 57 mg/dL (70-99) Calcium Level 6.8 mg/dL (8.5-10.1) 6.6 mg/dL (8.5-10.1) Magnesium Level 1.9 mg/dL (1.8-2.4) White Blood Count 10.7 x10^3/uL (4.0-11.0) 10.7 x10^3/uL (4.0-11.0) Red Blood Count 2.86 x10^6/uL (3.50-5.40) 2.84 x10^6/uL (3.50-5.40) Hemoglobin 10.7 g/dL (12.0-15.5) 10.6 g/dL (12.0-15.5) Hematocrit 30.2 % (36.0-47.0) 30.5 % (36.0-47.0) Mean Corpuscular Volume 106 fL (79-100) 107 fL (79-100) Mean Corpuscular Hemoglobin 38 pg (25-35) 37 pg (25-35) Mean Corpuscular Hemoglobin Concent 36 g/dL (31-37) 35 g/dL (31-37) Red Cell Distribution Width 16.4 % (11.5-14.5) 16.5 % (11.5-14.5) Platelet Count 63 x10^3/uL (140-400) 67 x10^3/uL (140-400) Neutrophils (%) (Auto) 81 % (31-73) 76 % (31-73) Lymphocytes (%) (Auto) 14 % (24-48) 17 % (24-48) Monocytes (%) (Auto) 5 % (0-9) 7 % (0-9) Eosinophils (%) (Auto) 0 % (0-3) 0 % (0-3) Basophils (%) (Auto) 0 % (0-3) 0 % (0-3) Neutrophils # (Auto) 8.6 x10^3/uL (1.8-7.7) 8.1 x10^3/uL (1.8-7.7) Lymphocytes # (Auto) 1.4 x10^3/uL (1.0-4.8) 1.8 x10^3/uL (1.0-4.8) Monocytes # (Auto) 0.6 x10^3/uL (0.0-1.1) 0.7 x10^3/uL (0.0-1.1) Eosinophils # (Auto) 0.0 x10^3/uL (0.0-0.7) 0.0 x10^3/uL (0.0-0.7) Basophils # (Auto) 0.0 x10^3/uL (0.0-0.2) 0.0 x10^3/uL (0.0-0.2) Images Images CT scan of the head shows no acute changes. CT scan of the spine shows no acute changes. Chest x-ray shows no infiltrates. Assessment/Plan Assessment/Plan 1. Possible seizure disorder. Heavy alcohol use by report. Patient is calm her at this time. Work-up as per the primary service. 2. Elevated troponin at 2.362. EKG shows a sinus rhythm with some T wave inversion but no ST elevation. History of a 30% lesion in the LAD in January 2017. Will continue to rule out for myocardial infarction. Continue present treatment. 3. Hypertension. Will check home medications. Adjust medicines based on the patient blood pressure. 4. Urinary tract infection with possible sepsis. Being followed by ID. P ressor support as needed. 5. History of hyperlipidemia. Will check morning lab. Thank you for allowing us to participate in the care of your patient. ЕЛЕНА HUTCHINSON MD Jan 18, 2021 14:58
--- NOTE | 2021-01-18 19:42 | EKG ---
[facility] [address] [place] [address] Test Date: 2021-01-18 Test Time: 18:39:26 Pat Name: PAMELA GIBSON Department: Room: [facility] Gender: F Iron Bender: SHANNAN : 1965 Requested By: ЕЛЕНА HUTCHINSON Order Number: [id number] Reading MD: Measurements Intervals Champion Rate: 157 P: RI: QRS: 42 QRSD: 74 T: -118 QT: 310 QTc: 508 Interpretive Statements IRREGULAR RHYTHM, NO P-WAVE FOUND ST & T ABNORMALITY, CONSIDER ANTEROLATERAL ISCHEMIA OR LEFT VENTRICULAR STRAIN INFEROLATERAL ISCHEMIA OR LEFT VENTRICULAR STRAIN T ABNORMALITY IN ANTERIOR LEADS ABNORMAL ECG RI6.01 No previous ECG available for comparison
[2021-01-18] MEDS ORDERED: DIGOXIN IV 500 MCG/2 ML AMPUL. IV ONE (19:45)
[2021-01-18 20:06] LABS: ALBUMIN 2.4 g/dL (3.4-5.0); ALBUMIN/GLOBULIN RATIO 0.7 (1.0-1.7); CALCIUM 7.2 mg/dL (8.5-10.1); CREATININE 0.9 mg/dL (0.6-1.0); GFR 64.8; MAGNESIUM 1.6 mg/dL (1.8-2.4); TOTAL BILIRUBIN 0.9 mg/dL (0.2-1.0); TOTAL PROTEIN 5.9 g/dL (6.4-8.2)
[2021-01-18 20:11] LABS: POTASSIUM 2.9 mmol/L (3.5-5.1)
[2021-01-18] MEDS: FAMOTIDINE 20 MG/2 ML VIAL IVP SCH (20:31)
[2021-01-18] MEDS ORDERED: POTASSIUM BICARB 20 MEQ EFFERVESCENT TABLET. PO ONE (21:00)
[2021-01-18] MEDS: cefTRIAXone IV Push 1 GM VIAL. IVP SCH (22:41)
[2021-01-19] VITALS (23 sets, daily range): BP systolic 95–177; BP diastolic 63–91
[2021-01-19] MEDS: MAGNESIUM OXIDE 400 MG TABLET PO SCH ×3 (00:12→22:42)
[2021-01-19] MEDS: POTASSIUM CL 40MEQ IN 0.9%NACL 1,000 ML IV SCH (02:21)
[2021-01-19] MEDS: ELECTROLYTE (ICU) PROTOCOL. MC SCH (09:00)
[2021-01-19 09:37] LABS: BASO % 0 % (0-3); EOS % 0 % (0-3); HEMATOCRIT 33.9 % (36.0-47.0); HEMOGLOBIN 11.7 g/dL (12.0-15.5); LYMPH # 1.5 x10^3/uL (1.0-4.8); LYMPH % 15 % (24-48); MEAN CORPUSCULAR HEMOGLOBIN 37 pg (25-35); MEAN CORPUSCULAR HGB CONC 34 g/dL (31-37); MEAN CORPUSCULAR VOLUME 109 fL (79-100); MONO # 0.8 x10^3/uL (0.0-1.1); MONO % 8 % (0-9); NEUT # 7.8 x10^3/uL (1.8-7.7); NEUT % 77 % (31-73); PLATELET COUNT 88 x10^3/uL (140-400); RED BLOOD COUNT 3.12 x10^6/uL (3.50-5.40); RED CELL DISTRIBUTION WIDTH 17.1 % (11.5-14.5); WHITE BLOOD COUNT 10.2 x10^3/uL (4.0-11.0)
--- NOTE | 2021-01-19 09:45 | PDOC ---
Infectious Disease Note Subjective: Subjective Patient transferred out of ICU Patient is alert oriented x2 Still remains confused Complains of shoulder pain Vital Signs: Vital Signs Vital Signs Date Time Temp Pulse Resp B/P (MAP) Pulse Ox O2 Delivery O2 Flow Rate FiO2 01/19/21 07:20 97.6 108 22 123/76 (92) 95 Nasal Cannula 2.0 97.6 Physical Exam: PHYSICAL EXAM General alert awake female lying in bed comfortably no acute distress HEENT normocephalic atraumatic poor dentition no thrush oral mucosa dry Neck supple no JVD Lungs clear anteriorly no wheezing Heart S1-S2 no gallops murmurs Abdomen soft nondistended bowel sounds present nontender Extremities no edema or cyanosis [employer]EL[employer] alert awake confused moves all 4 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 Labs: Lab Laboratory Tests Test 01/18/21 12:39 01/18/21 19:30 White Blood Count 10.7 x10^3/uL (4.0-11.0) Red Blood Count 2.84 x10^6/uL (3.50-5.40) Hemoglobin 10.6 g/dL (12.0-15.5) Hematocrit 30.5 % (36.0-47.0) Mean Corpuscular Volume 107 fL (79-100) Mean Corpuscular Hemoglobin 37 pg (25-35) Mean Corpuscular Hemoglobin Concent 35 g/dL (31-37) Red Cell Distribution Width 16.5 % (11.5-14.5) Platelet Count 67 x10^3/uL (140-400) Neutrophils (%) (Auto) 76 % (31-73) Lymphocytes (%) (Auto) 17 % (24-48) Monocytes (%) (Auto) 7 % (0-9) Eosinophils (%) (Auto) 0 % (0-3) Basophils (%) (Auto) 0 % (0-3) Neutrophils # (Auto) 8.1 x10^3/uL (1.8-7.7) Lymphocytes # (Auto) 1.8 x10^3/uL (1.0-4.8) Monocytes # (Auto) 0.7 x10^3/uL (0.0-1.1) Eosinophils # (Auto) 0.0 x10^3/uL (0.0-0.7) Basophils # (Auto) 0.0 x10^3/uL (0.0-0.2) Sodium Level 135 mmol/L (136-145) 134 mmol/L (136-145) Potassium Level 3.4 mmol/L (3.5-5.1) 2.9 mmol/L (3.5-5.1) Chloride Level 97 mmol/L (98-107) 96 mmol/L (98-107) Carbon Dioxide Level 29 mmol/L (21-32) 22 mmol/L (21-32) Anion Gap 9 (6-14) 16 (6-14) Blood Urea Nitrogen 24 mg/dL (7-20) 19 mg/dL (7-20) Creatinine 1.2 mg/dL (0.6-1.0) 0.9 mg/dL (0.6-1.0) Estimated GFR (Cockcroft-Gault) 46.5 64.8 Glucose Level 57 mg/dL (70-99) 112 mg/dL (70-99) Calcium Level 6.6 mg/dL (8.5-10.1) 7.2 mg/dL (8.5-10.1) Troponin I Quantitative 0.530 ng/mL (0.000-0.055) 0.512 ng/mL (0.000-0.055) BUN/Creatinine Ratio 21 (6-20) Magnesium Level 1.6 mg/dL (1.8-2.4) Total Bilirubin 0.9 mg/dL (0.2-1.0) Aspartate Amino Transf (AST/SGOT) 188 U/L (15-37) Alanine Aminotransferase (ALT/SGPT) 82 U/L (14-59) Alkaline Phosphatase 116 U/L (46-116) Total Protein 5.9 g/dL (6.4-8.2) Albumin 2.4 g/dL (3.4-5.0) Albumin/Globulin Ratio 0.7 (1.0-1.7) Objective: Assessment: Encephalopathy improving Seizure-like activity on presentation at [facility], no further seizure activity reported here Sepsis now resolved Leukocytosis resolved UTI Hematuria Anemia and thrombocytopenia Hypokalemia and hyponatremia, FRANCESCA improving Atrial fibrillation History of fall POA History of anxiety, depression Fibromyalgia Hyperlipidemia CAD Tobaccoism Heavy EtOH dependence Right distal clavicular fracture and widening of the coracoclavicular space which could be associated ligamentous injury Plan: Plan of Care Continue Rocephin Follow-up labs and cultures Maintain aspiration precaution Supportive care Pain control per primary OZIEL LANGSTON MD Jan 19, 2021 09:45
[2021-01-19 10:08] LABS: ALBUMIN 2.6 g/dL (3.4-5.0); CALCIUM 7.6 mg/dL (8.5-10.1); CREATININE 0.8 mg/dL (0.6-1.0); DIRECT BILIRUBIN 0.4 mg/dL (0.0-0.2); GFR 74.2; MAGNESIUM 1.4 mg/dL (1.8-2.4); POTASSIUM 4.1 mmol/L (3.5-5.1); TOTAL PROTEIN 6.1 g/dL (6.4-8.2)
[2021-01-19 10:11] LABS: CHOLESTEROL/HDL RATIO 4.2
--- NOTE | 2021-01-19 10:29 | PDOC ---
Renal-Progress Notes Subjective Notes Notes CONFUSED History of Present Illness Hx of present illness CONT WITH DIARRHEA Vitals Vitals Vital Signs Date Time Temp Pulse Resp B/P (MAP) Pulse Ox O2 Delivery O2 Flow Rate FiO2 01/19/21 07:20 97.6 108 22 123/76 (92) 95 Nasal Cannula 2.0 97.6 Weight Weight [ ] I.O. Intake and Output Intake and Output 01/19/21 07:00 Intake Total 840 ml Output Total 2870 ml Balance -2030 ml Intake Oral 440 ml IV Total 400 ml Output Urine Total 2870 ml # Bowel Movements 8 Labs Labs Laboratory Tests Test 01/18/21 12:39 01/18/21 19:30 01/19/21 09:05 White Blood Count 10.7 x10^3/uL (4.0-11.0) 10.2 x10^3/uL (4.0-11.0) Red Blood Count 2.84 x10^6/uL (3.50-5.40) 3.12 x10^6/uL (3.50-5.40) Hemoglobin 10.6 g/dL (12.0-15.5) 11.7 g/dL (12.0-15.5) Hematocrit 30.5 % (36.0-47.0) 33.9 % (36.0-47.0) Mean Corpuscular Volume 107 fL (79-100) 109 fL (79-100) Mean Corpuscular Hemoglobin 37 pg (25-35) 37 pg (25-35) Mean Corpuscular Hemoglobin Concent 35 g/dL (31-37) 34 g/dL (31-37) Red Cell Distribution Width 16.5 % (11.5-14.5) 17.1 % (11.5-14.5) Platelet Count 67 x10^3/uL (140-400) 88 x10^3/uL (140-400) Neutrophils (%) (Auto) 76 % (31-73) 77 % (31-73) Lymphocytes (%) (Auto) 17 % (24-48) 15 % (24-48) Monocytes (%) (Auto) 7 % (0-9) 8 % (0-9) Eosinophils (%) (Auto) 0 % (0-3) 0 % (0-3) Basophils (%) (Auto) 0 % (0-3) 0 % (0-3) Neutrophils # (Auto) 8.1 x10^3/uL (1.8-7.7) 7.8 x10^3/uL (1.8-7.7) Lymphocytes # (Auto) 1.8 x10^3/uL (1.0-4.8) 1.5 x10^3/uL (1.0-4.8) Monocytes # (Auto) 0.7 x10^3/uL (0.0-1.1) 0.8 x10^3/uL (0.0-1.1) Eosinophils # (Auto) 0.0 x10^3/uL (0.0-0.7) 0.0 x10^3/uL (0.0-0.7) Basophils # (Auto) 0.0 x10^3/uL (0.0-0.2) 0.0 x10^3/uL (0.0-0.2) Sodium Level 135 mmol/L (136-145) 134 mmol/L (136-145) 134 mmol/L (136-145) Potassium Level 3.4 mmol/L (3.5-5.1) 2.9 mmol/L (3.5-5.1) 4.1 mmol/L (3.5-5.1) Chloride Level 97 mmol/L (98-107) 96 mmol/L (98-107) 96 mmol/L (98-107) Carbon Dioxide Level 29 mmol/L (21-32) 22 mmol/L (21-32) 28 mmol/L (21-32) Anion Gap 9 (6-14) 16 (6-14) 10 (6-14) Blood Urea Nitrogen 24 mg/dL (7-20) 19 mg/dL (7-20) 9 mg/dL (7-20) Creatinine 1.2 mg/dL (0.6-1.0) 0.9 mg/dL (0.6-1.0) 0.8 mg/dL (0.6-1.0) Estimated GFR (Cockcroft-Gault) 46.5 64.8 74.2 Glucose Level 57 mg/dL (70-99) 112 mg/dL (70-99) 106 mg/dL (70-99) Calcium Level 6.6 mg/dL (8.5-10.1) 7.2 mg/dL (8.5-10.1) 7.6 mg/dL (8.5-10.1) Troponin I Quantitative 0.530 ng/mL (0.000-0.055) 0.512 ng/mL (0.000-0.055) 0.482 ng/mL (0.000-0.055) BUN/Creatinine Ratio 21 (6-20) Magnesium Level 1.6 mg/dL (1.8-2.4) 1.4 mg/dL (1.8-2.4) Total Bilirubin 0.9 mg/dL (0.2-1.0) 1.0 mg/dL (0.2-1.0) Aspartate Amino Transf (AST/SGOT) 188 U/L (15-37) 170 U/L (15-37) Alanine Aminotransferase (ALT/SGPT) 82 U/L (14-59) 89 U/L (14-59) Alkaline Phosphatase 116 U/L (46-116) 132 U/L (46-116) Total Protein 5.9 g/dL (6.4-8.2) 6.1 g/dL (6.4-8.2) Albumin 2.4 g/dL (3.4-5.0) 2.6 g/dL (3.4-5.0) Albumin/Globulin Ratio 0.7 (1.0-1.7) Direct Bilirubin 0.4 mg/dL (0.0-0.2) Creatine Kinase 1244 U/L (26-192) Triglycerides Level 127 mg/dL (0-150) Cholesterol Level 220 mg/dL (0-200) LDL Cholesterol, Calculated 143 mg/dL (0-100) VLDL Cholesterol, Calculated 25 mg/dL (0-40) Non-HDL Cholesterol Calculated 168 mg/dL (0-129) HDL Cholesterol 52 mg/dL (40-60) Cholesterol/HDL Ratio 4.2 Review of Systems Constitutional: yes: alert, other (CONFUSED) Ears/Nose/Throat: Yes: no symptom reported Eyes: Yes: no symptom reported Pulmonary: Yes no symptom reported Cardiovascular: Yes no symptom reported Gastrointestional: Yes: no symptom reported Genitourinary: Yes: no symptom reported Musculoskeletal: Yes: no symptom reported Skin: Yes no symptom reported Psychiatric/Neurological: Yes: no symptom reported Endocrine: Yes: no symptom reported Physical Exam General Appearance: no apparent distress Skin: warm Respiratory: decreased breath sounds Heart: S1S2 Abdomen: soft, bowel sounds present Genitourinary: bladder flat Extremities: atrophy Neurology: alert, confused Assessment Assessment IMP FRANCESCA-RESOLVED HYPOKALEMIA HYPOMAGNESEMIA SEPSIS ENCEPHALOPATHY DIARRHEA UTI R CLAVICLE FRACTURE PLAN REPLACE K AND MAG HYDRATION WINNIE BOURNE MD Jan 19, 2021 10:29
[2021-01-19] MEDS: IV NORMAL SALINE 1000ML BAG 1,000 ML IV SCH ×2 (10:30→23:50)
[2021-01-19] MEDS: FAMOTIDINE 20 MG/2 ML VIAL IVP SCH ×2 (10:35→22:40)
[2021-01-19] MEDS ORDERED: MAGNESIUM SULFATE 2GM 50 ML IV ONE (14:00)
--- NOTE | 2021-01-19 14:41 | RAD ---
Exam performed: One view chest HISTORY: Line placement DATE OF SERVICE: 01/20/2020. COMPARISON: None available Findings and impression: Single AP upright portable view chest there is obtained. Heart size is within limits of normal. Centr al pulmonary vascularity is congested. There is a left IJ line, the tip of which overlies the aorta. The location of the tip is not entirely clear and could be in the left brachiocephalic vein although not confirmed. A lateral view may be obtained for confirmation. Alternatively line may be advanced an d a repeat x-ray may be obtained. Electronically signed by: Roopa Banda MD (01/19/2021 2:38 PM) [facility]
--- NOTE | 2021-01-19 15:11 | PDOC ---
PROGRESS NOTES Date of Service DATE: 01/19/21 TIME: 15:09 Subjective Subjective Patient seen and examined Objective Objective Vital Signs Date Time Temp Pulse Resp B/P (MAP) Pulse Ox O2 Delivery O2 Flow Rate FiO2 01/19/21 14:29 98.4 106 22 142/73 (96) 96 Nasal Cannula 2.0 98.4 Intake and Output 01/19/21 07:00 Intake Total 840 ml Output Total 2870 ml Balance -2030 ml Intake Oral 440 ml IV Total 400 ml Output Urine Total 2870 ml # Bowel Movements 8 Physical Exam Abdomen: Normal bowel sounds Heart: Regular rate General: No acute distress Lungs: Other (Slightly decreased breath sounds) Assessment Assessment Assessment/Plan 1. Possible seizure disorder. Heavy alcohol use by report. Patient is more comfortable today. 2. Elevated troponin at 2.362. EKG shows a sinus rhythm with some T wave inversion but no ST elevation. History of a 30% lesion in the LAD in January 2017. Troponin has decreased to 0.482. Would continue medical treatment. P robable outpatient ischemia evaluation. 3. Hypertension. Improved. Continue present treatment. Will check home medications. 4. Urinary tract infection with possible sepsis. Being followed by ID. 5. History of hyperlipidemia. LDL of 143 with an HDL of 52. Treatment as above. Comment Review of Relevant I have reviewed the following items renny (where applicable) has been applied. Labs Laboratory Tests Test 01/18/21 04:30 01/18/21 07:15 01/18/21 12:39 01/18/21 19:30 Sodium Level 128 mmol/L (136-145) 135 mmol/L (136-145) 134 mmol/L (136-145) Potassium Level 2.8 mmol/L (3.5-5.1) 3.4 mmol/L (3.5-5.1) 2.9 mmol/L (3.5-5.1) Chloride Level 91 mmol/L (98-107) 97 mmol/L (98-107) 96 mmol/L (98-107) Carbon Dioxide Level 26 mmol/L (21-32) 29 mmol/L (21-32) 22 mmol/L (21-32) Anion Gap 11 (6-14) 9 (6-14) 16 (6-14) Blood Urea Nitrogen 29 mg/dL (7-20) 24 mg/dL (7-20) 19 mg/dL (7-20) Creatinine 1.7 mg/dL (0.6-1.0) 1.2 mg/dL (0.6-1.0) 0.9 mg/dL (0.6-1.0) Estimated GFR (Cockcroft-Gault) 31.1 46.5 64.8 Glucose Level 64 mg/dL (70-99) 57 mg/dL (70-99) 112 mg/dL (70-99) Calcium Level 6.8 mg/dL (8.5-10.1) 6.6 mg/dL (8.5-10.1) 7.2 mg/dL (8.5-10.1) Magnesium Level 1.9 mg/dL (1.8-2.4) 1.6 mg/dL (1.8-2.4) White Blood Count 10.7 x10^3/uL (4.0-11.0) 10.7 x10^3/uL (4.0-11.0) Red Blood Count 2.86 x10^6/uL (3.50-5.40) 2.84 x10^6/uL (3.50-5.40) Hemoglobin 10.7 g/dL (12.0-15.5) 10.6 g/dL (12.0-15.5) Hematocrit 30.2 % (36.0-47.0) 30.5 % (36.0-47.0) Mean Corpuscular Volume 106 fL (79-100) 107 fL (79-100) Mean Corpuscular Hemoglobin 38 pg (25-35) 37 pg (25-35) Mean Corpuscular Hemoglobin Concent 36 g/dL (31-37) 35 g/dL (31-37) Red Cell Distribution Width 16.4 % (11.5-14.5) 16.5 % (11.5-14.5) Platelet Count 63 x10^3/uL (140-400) 67 x10^3/uL (140-400) Neutrophils (%) (Auto) 81 % (31-73) 76 % (31-73) Lymphocytes (%) (Auto) 14 % (24-48) 17 % (24-48) Monocytes (%) (Auto) 5 % (0-9) 7 % (0-9) Eosinophils (%) (Auto) 0 % (0-3) 0 % (0-3) Basophils (%) (Auto) 0 % (0-3) 0 % (0-3) Neutrophils # (Auto) 8.6 x10^3/uL (1.8-7.7) 8.1 x10^3/uL (1.8-7.7) Lymphocytes # (Auto) 1.4 x10^3/uL (1.0-4.8) 1.8 x10^3/uL (1.0-4.8) Monocytes # (Auto) 0.6 x10^3/uL (0.0-1.1) 0.7 x10^3/uL (0.0-1.1) Eosinophils # (Auto) 0.0 x10^3/uL (0.0-0.7) 0.0 x10^3/uL (0.0-0.7) Basophils # (Auto) 0.0 x10^3/uL (0.0-0.2) 0.0 x10^3/uL (0.0-0.2) Troponin I Quantitative 0.530 ng/mL (0.000-0.055) 0.512 ng/mL (0.000-0.055) BUN/Creatinine Ratio 21 (6-20) Total Bilirubin 0.9 mg/dL (0.2-1.0) Aspartate Amino Transf (AST/SGOT) 188 U/L (15-37) Alanine Aminotransferase (ALT/SGPT) 82 U/L (14-59) Alkaline Phosphatase 116 U/L (46-116) Total Protein 5.9 g/dL (6.4-8.2) Albumin 2.4 g/dL (3.4-5.0) Albumin/Globulin Ratio 0.7 (1.0-1.7) Test 01/19/21 00:22 01/19/21 09:05 Clostridium difficile Toxin (PCR) Negative (NEGATIVE) White Blood Count 10.2 x10^3/uL (4.0-11.0) Red Blood Count 3.12 x10^6/uL (3.50-5.40) Hemoglobin 11.7 g/dL (12.0-15.5) Hematocrit 33.9 % (36.0-47.0) Mean Corpuscular Volume 109 fL (79-100) Mean Corpuscular Hemoglobin 37 pg (25-35) Mean Corpuscular Hemoglobin Concent 34 g/dL (31-37) Red Cell Distribution Width 17.1 % (11.5-14.5) Platelet Count 88 x10^3/uL (140-400) Neutrophils (%) (Auto) 77 % (31-73) Lymphocytes (%) (Auto) 15 % (24-48) Monocytes (%) (Auto) 8 % (0-9) Eosinophils (%) (Auto) 0 % (0-3) Basophils (%) (Auto) 0 % (0-3) Neutrophils # (Auto) 7.8 x10^3/uL (1.8-7.7) Lymphocytes # (Auto) 1.5 x10^3/uL (1.0-4.8) Monocytes # (Auto) 0.8 x10^3/uL (0.0-1.1) Eosinophils # (Auto) 0.0 x10^3/uL (0.0-0.7) Basophils # (Auto) 0.0 x10^3/uL (0.0-0.2) Sodium Level 134 mmol/L (136-145) Potassium Level 4.1 mmol/L (3.5-5.1) Chloride Level 96 mmol/L (98-107) Carbon Dioxide Level 28 mmol/L (21-32) Anion Gap 10 (6-14) Blood Urea Nitrogen 9 mg/dL (7-20) Creatinine 0.8 mg/dL (0.6-1.0) Estimated GFR (Cockcroft-Gault) 74.2 Glucose Level 106 mg/dL (70-99) Calcium Level 7.6 mg/dL (8.5-10.1) Magnesium Level 1.4 mg/dL (1.8-2.4) Total Bilirubin 1.0 mg/dL (0.2-1.0) Direct Bilirubin 0.4 mg/dL (0.0-0.2) Aspartate Amino Transf (AST/SGOT) 170 U/L (15-37) Alanine Aminotransferase (ALT/SGPT) 89 U/L (14-59) Alkaline Phosphatase 132 U/L (46-116) Creatine Kinase 1244 U/L (26-192) Troponin I Quantitative 0.482 ng/mL (0.000-0.055) Total Protein 6.1 g/dL (6.4-8.2) Albumin 2.6 g/dL (3.4-5.0) Triglycerides Level 127 mg/dL (0-150) Cholesterol Level 220 mg/dL (0-200) LDL Cholesterol, Calculated 143 mg/dL (0-100) VLDL Cholesterol, Calculated 25 mg/dL (0-40) Non-HDL Cholesterol Calculated 168 mg/dL (0-129) HDL Cholesterol 52 mg/dL (40-60) Cholesterol/HDL Ratio 4.2 Laboratory Tests Test 01/18/21 19:30 01/19/21 00:22 01/19/21 09:05 Sodium Level 134 mmol/L (136-145) 134 mmol/L (136-145) Potassium Level 2.9 mmol/L (3.5-5.1) 4.1 mmol/L (3.5-5.1) Chloride Level 96 mmol/L (98-107) 96 mmol/L (98-107) Carbon Dioxide Level 22 mmol/L (21-32) 28 mmol/L (21-32) Anion Gap 16 (6-14) 10 (6-14) Blood Urea Nitrogen 19 mg/dL (7-20) 9 mg/dL (7-20) Creatinine 0.9 mg/dL (0.6-1.0) 0.8 mg/dL (0.6-1.0) Estimated GFR (Cockcroft-Gault) 64.8 74.2 BUN/Creatinine Ratio 21 (6-20) Glucose Level 112 mg/dL (70-99) 106 mg/dL (70-99) Calcium Level 7.2 mg/dL (8.5-10.1) 7.6 mg/dL (8.5-10.1) Magnesium Level 1.6 mg/dL (1.8-2.4) 1.4 mg/dL (1.8-2.4) Total Bilirubin 0.9 mg/dL (0.2-1.0) 1.0 mg/dL (0.2-1.0) Aspartate Amino Transf (AST/SGOT) 188 U/L (15-37) 170 U/L (15-37) Alanine Aminotransferase (ALT/SGPT) 82 U/L (14-59) 89 U/L (14-59) Alkaline Phosphatase 116 U/L (46-116) 132 U/L (46-116) Troponin I Quantitative 0.512 ng/mL (0.000-0.055) 0.482 ng/mL (0.000-0.055) Total Protein 5.9 g/dL (6.4-8.2) 6.1 g/dL (6.4-8.2) Albumin 2.4 g/dL (3.4-5.0) 2.6 g/dL (3.4-5.0) Albumin/Globulin Ratio 0.7 (1.0-1.7) Clostridium difficile Toxin (PCR) Negative (NEGATIVE) White Blood Count 10.2 x10^3/uL (4.0-11.0) Red Blood Count 3.12 x10^6/uL (3.50-5.40) Hemoglobin 11.7 g/dL (12.0-15.5) Hematocrit 33.9 % (36.0-47.0) Mean Corpuscular Volume 109 fL (79-100) Mean Corpuscular Hemoglobin 37 pg (25-35) Mean Corpuscular Hemoglobin Concent 34 g/dL (31-37) Red Cell Distribution Width 17.1 % (11.5-14.5) Platelet Count 88 x10^3/uL (140-400) Neutrophils (%) (Auto) 77 % (31-73) Lymphocytes (%) (Auto) 15 % (24-48) Monocytes (%) (Auto) 8 % (0-9) Eosinophils (%) (Auto) 0 % (0-3) Basophils (%) (Auto) 0 % (0-3) Neutrophils # (Auto) 7.8 x10^3/uL (1.8-7.7) Lymphocytes # (Auto) 1.5 x10^3/uL (1.0-4.8) Monocytes # (Auto) 0.8 x10^3/uL (0.0-1.1) Eosinophils # (Auto) 0.0 x10^3/uL (0.0-0.7) Basophils # (Auto) 0.0 x10^3/uL (0.0-0.2) Direct Bilirubin 0.4 mg/dL (0.0-0.2) Creatine Kinase 1244 U/L (26-192) Triglycerides Level 127 mg/dL (0-150) Cholesterol Level 220 mg/dL (0-200) LDL Cholesterol, Calculated 143 mg/dL (0-100) VLDL Cholesterol, Calculated 25 mg/dL (0-40) Non-HDL Cholesterol Calculated 168 mg/dL (0-129) HDL Cholesterol 52 mg/dL (40-60) Cholesterol/HDL Ratio 4.2 Medications Current Medications Potassium Chloride/Water 100 ml @ 100 mls/hr Q1H IV Last administered on 01/17/21at 23:31; Start 01/17/21 at 21:45; Stop 01/17/21 at 23:44; Status DC Lorazepam (Ativan Inj) 2 mg PRN Q1HR PRN IV For CIWA 8-14 Last administered on 01/19/21at 05:33; Start 01/17/21 at 21:15 Lorazepam (Ativan Inj) 4 mg PRN Q1HR PRN IV For CIWA 15 or greater; Start 01/17/21 at 21:15 Haloperidol Lactate (Haldol Inj) 5 mg PRN Q4HRS PRN IVP Hallucinatns,Confusn,Delirium; Start 01/17/21 at 21:15 Diphenhydramine HCl (Benadryl) 25 mg PRN Q15MIN PRN IVP EPS symptoms 2'Haldol admin; Start 01/17/21 at 21:15 Lorazepam (Ativan Inj) 2 mg PRN Q15MIN PRN IV SEE COMMENTS; Start 01/17/21 at 21:15 Lorazepam (Ativan Inj) 4 mg PRN Q15MIN PRN IV SEE COMMENTS; Start 01/17/21 at 21:15 Lorazepam (Ativan Inj) 4 mg 1X ONCE IVP Last administered on 01/19/21at 10:36; Start 01/17/21 at 21:45; Stop 01/17/21 at 21:46; Status DC Ceftriaxone Sodium (Rocephin) 1 gm Q24H IVP Last administered on 01/18/21at 22:41; Start 01/18/21 at 21:00 Info (Icu Electrolyte Protocol) 1 ea DAILY MC Last administered on 01/18/21at 09:00; Start 01/18/21 at 09:00 Potassium Chloride/Sodium Chloride 1,000 ml @ 125 mls/hr Q8H IV ; Start 01/17/21 at 21:45; Stop 01/17/21 at 22:10; Status DC Norepinephrine Bitartrate 8 mg/ Dextrose 258 ml @ 9.501 mls/ hr CONT PRN IV PER PROTOCOL; Start 01/17/21 at 21:45 Potassium Chloride/Sodium Chloride 1,000 ml @ 125 mls/hr Q8H IV Last administered on 01/19/21at 02:21; Start 01/18/21 at 00:00; Stop 01/19/21 at 13:23; Status DC Potassium Chloride/Water 100 ml @ 100 mls/hr Q1H IV Last administered on 01/18at 10:52; Start 01/18/21 at 06:45; Stop 01/18/21 at 10:44; Status DC Digoxin (Lanoxin) 250 mcg 1X ONCE IV Last administered on 01/18/21at 19:56; Start 01/18/21 at 19:45; Stop 01/18/21 at 19:46; Status DC Diltiazem HCl 125 mg/Sodium Chloride 125 ml @ 5 mls/hr CONT PRN IV TACHYCARDIA Last administered on 01/19/21at 11:35; Start 01/18/21 at 20:15 Famotidine (Pepcid Vial) 20 mg BID IVP Last administered on 01/19/21at 10:35; Start 01/18/21 at 21:00 Potassium Bicarbonate (Potassium Effervescent Tablet) 40 meq 1X ONCE PO Last administered on 01/18/21at 20:31; Start 01/18/21 at 21:00; Stop 01/18/21 at 21:01; Status DC Magnesium Oxide (Magnesium Oxide) 400 mg BID PO Last administered on 01/19/21at 10:34; Start 01/19/21 at 00:05; Stop 01/20/21 at 09:01 Sodium Chloride 1,000 ml @ 75 mls/hr [id number] IV ; Start 01/19/21 at 10:30 Multivitamins 10 ml/Thiamine HCl 100 mg/Folic Acid 1 mg/Sodium Chloride 1,011.2 ml @ 75 mls/hr DAILY IV ; Start 01/19/21 at 13:15; Stop 01/23/21 at 22:29 Thiamine Mononitrate (Vitamin B-1) 100 mg DAILY PO ; Start 01/24/21 at 09:00 Magnesium Sulfate 50 ml @ 25 mls/hr 1X ONCE IV ; Start 01/19/21 at 14:00; Stop 01/19/21 at 15:59 Active Scripts Active Reported Carvedilol (Carvedilol) 6.25 Mg Tablet 6.25 Mg PO BIDWMEALS Hydroxyzine Hcl 25 Mg Tablet 1 Tab PO HS Cymbalta (Duloxetine Hcl) 30 Mg Capsule.dr 3 Cap PO DAILY Vitals/I & O Vital Sign - Last 24 Hours 01/18/21 01/18/21 01/18/21 01/18/21 15:15 19:30 19:56 20:05 Temp 98.1 98.1 Pulse 156 156 B/P (MAP) 149/85 (106) 149/85 Pulse Ox 94 O2 Delivery Room Air Room Air Room Air 01/18/21 01/18/21 01/18/21 01/18/21 20:34 20:47 21:02 21:32 Pulse 156 148 154 150 B/P (MAP) 125/81 (96) 136/61 (86) 136/88 (104) 109/75 (86) Pulse Ox 99 90 95 O2 Delivery Nasal Cannula Nasal Cannula Nasal Cannula Nasal Cannula O2 Flow Rate 2.0 2.0 2.0 2.0 01/18/21 01/18/21 01/18/21 01/18/21 21:47 22:02 22:17 22:32 Pulse 148 150 150 148 B/P (MAP) 131/76 (94) 91/62 (72) 105/80 (88) 113/76 (88) Pulse Ox 97 92 94 98 O2 Delivery Nasal Cannula Nasal Cannula Nasal Cannula Nasal Cannula O2 Flow Rate 2.0 2.0 2.0 2.0 01/18/21 01/19/21 01/19/21 01/19/21 23:10 03:30 04:30 05:17 Temp 98.8 98.4 98.8 98.4 Pulse 142 98 97 100 Resp 24 22 B/P (MAP) 119/81 (94) 97/65 (76) 110/72 (85) 138/84 (102) Pulse Ox 98 98 O2 Delivery Nasal Cannula Nasal Cannula Nasal Cannula Nasal Cannula O2 Flow Rate 2.0 2.0 2.0 2.0 3/20/21 3/20/21 3/20/21 3/20/21 07:03 07:04 07:20 09:04 Temp 97.6 97.6 Pulse 104 102 108 104 Resp 22 B/P (MAP) 134/84 (101) 142/75 (97) 123/76 (92) 123/70 (87) Pulse Ox 95 O2 Delivery Nasal Cannula Nasal Cannula O2 Flow Rate 2.0 2.0 01/19/21 01/19/21 01/19/21 01/19/21 10:30 11:04 12:04 13:04 Temp 98.2 98.2 Pulse 98 104 101 101 Resp 22 B/P (MAP) 118/72 (87) 148/91 (110) 114/70 (85) 140/80 (100) Pulse Ox 95 O2 Delivery Nasal Cannula O2 Flow Rate 2.0 01/19/21 14:29 Temp 98.4 98.4 Pulse 106 Resp 22 B/P (MAP) 142/73 (96) Pulse Ox 96 O2 Delivery Nasal Cannula O2 Flow Rate 2.0 Intake and Output 01/18/21 01/18/21 01/19/21 15:00 23:00 07:00 Intake Total 400 ml 440 ml Output Total 440 ml 680 ml 1750 ml Balance -40 ml -680 ml -1310 ml Justifications for Admission Other Justification Nutrition Consultation Dietary Evaluation: Recommendations by RD: Dietary education by RD, Increase Calorie Intake, Add supplement feedings Comments: REC advance diet to regular as appropriate, offer Ensure supplements prn If unable to advance diet within 48 hrs, recommend consideration of TPN (pt has central line) for nutrition support while unable to advance diet, Expected Outcomes/Goals: diet advancement Malnutrition Findings: Food and Nutrition Intake (Mod: <75% est energy req 7days Weight Status: Underweight ЕЛЕНА HUTCHINSON MD Jan 19, 2021 15:11
[2021-01-19] MEDS: MULTIVIT INFUSN,ADULT 4,VIT K 10 ML, THIAMINE INJ 100 MG, FOLIC ACID INJ 1 MG in IV NOR... IV SCH (15:12)
--- NOTE | 2021-01-19 15:58 | PDOC ---
GENERAL General: Patient examined chart reviewed today's hospital day three for this patient with chronic severe alcoholism and what sounds to be withdrawal seizures at home even prior to this admission. Case discussed at length with nursing and her boyfriend at bedside. He tells me that she has been drinking heavily for quite some time and has not wanted to access any outside care. He finally had to have her transported to the hospital when she was unresponsive after a seizure 2 days ago. Records from [facility] are available for review in the paper chart and CT head and neck are negative. Her alcohol level in the [facility] emergency department was 13. She has not had any seizure activity while here. Nurse tells me she is having a lot of diarrhea C. difficile is negative. She is on an alcohol withdrawal protocol we will continue current management hold off on adding antiepileptics at this point. We will consult neurology if needed otherwise continue to treat aggressively with IV fluids, multivitamin, and Ativan dosed per protocol. Total time today is 35 minutes with greater than 50% in counseling and coordination of care most of which in discussion with nursing and boyfriend at bedside she has not been COVID-19 tested and at this point does not appear to need a test. Problems: (1) Alcohol withdrawal seizure with delirium (2) Chronic alcoholism VITAL SIGNS Vital Signs/I&O: Vital Signs Date Time Temp Pulse Resp B/P (MAP) Pulse Ox O2 Delivery O2 Flow Rate FiO2 01/19/21 14:29 98.4 106 22 142/73 (96) 96 Nasal Cannula 2.0 98.4 I & O 01/18/21 01/18/21 01/19/21 15:00 23:00 07:00 Intake Total 400 ml 440 ml Output Total 440 ml 680 ml 1750 ml Balance -40 ml -680 ml -1310 ml Patient is very lethargic has recently had large dose of Ativan for withdrawal symptoms HEENT exam is notable for poor dentition otherwise unremarkable Neck is soft and supple no adenopathy or thyromegaly noted Chest bilateral equal air entry though diminished throughout no crackles or wheezes are noted Heart S1-S2 normal regular rate and rhythm no murmurs or gallops are noted Abdomen soft nontender nondistended no masses organomegaly noted Extremity exam is notable for that the patient is very unkempt feet appear to be worn from walking outside without shoes pulses are weak but palpable ALLERGIES Allergies: Allergies Coded Allergies Type Severity Reaction Last Updated Verified No Known Drug Allergies 02/02/17 No MEDS Medications: Current Medications Medications (Trade) Dose Ordered Sig/Josué Start Time Stop Time Status Last Admin Dose Admin Atorvastatin Calcium (Lipitor) 20 mg QHS 01/19/21 21:00 Ceftriaxone Sodium (Rocephin) 1 gm Q24H 01/18/21 21:00 01/18/21 22:41 Digoxin (Lanoxin) 250 mcg 1X ONCE 01/18/21 19:45 01/18/21 19:46 DC 01/18/21 19:56 Diltiazem HCl 125 mg/Sodium Chloride 125 ml @ 5 mls/hr CONT PRN 01/18/21 20:15 01/19/21 11:35 Diphenhydramine HCl (Benadryl) 25 mg PRN Q15MIN PRN 01/17/21 21:15 Famotidine (Pepcid Vial) 20 mg BID 01/18/21 21:00 01/19/21 10:35 Haloperidol Lactate (Haldol Inj) 5 mg PRN Q4HRS PRN 01/17/21 21:15 Info (Icu Electrolyte Protocol) 1 ea DAILY 01/18/21 09:00 01/18/21 09:00 Lorazepam (Ativan Inj) 4 mg 1X ONCE 01/17/21 21:45 01/17/21 21:46 DC 01/19/21 10:36 Magnesium Oxide (Magnesium Oxide) 400 mg BID 01/19/21 00:05 01/20/21 09:01 01/19/21 10:34 Magnesium Sulfate 50 ml @ 25 mls/hr 1X ONCE 01/19/21 14:00 01/19/21 15:59 01/19/21 15:11 Multivitamins 10 ml/Thiamine HCl 100 mg/Folic Acid 1 mg/Sodium Chloride 1,011.2 ml @ 75 mls/hr DAILY 01/19/21 13:15 01/23/21 22:29 01/19/21 15:12 Norepinephrine Bitartrate 8 mg/ Dextrose 258 ml @ 9.501 mls/ hr CONT PRN 01/17/21 21:45 Potassium Bicarbonate (Potassium Effervescent Tablet) 40 meq 1X ONCE 01/18/21 21:00 01/18/21 21:01 DC 01/18/21 20:31 Potassium Chloride/Sodium Chloride 1,000 ml @ 125 mls/hr Q8H 01/18/21 00:00 01/19/21 13:23 DC 01/19/21 02:21 Potassium Chloride/Water 100 ml @ 100 mls/hr Q1H 01/18/21 06:45 01/18/21 10:44 DC 01/18/21 10:52 Sodium Chloride 1,000 ml @ 75 mls/hr [id number] 01/19/21 10:30 Thiamine Mononitrate (Vitamin B-1) 100 mg DAILY 01/24/21 09:00 Current Medications Medications (Trade) Dose Ordered Sig/Josué Route PRN Reason Start Time Stop Time Status Last Admin Dose Admin Ceftriaxone Sodium (Rocephin) 1 gm Q24H IVP 01/18/21 21:00 01/18/21 22:41 Digoxin (Lanoxin) 250 mcg 1X ONCE IV 01/18/21 19:45 01/18/21 19:46 DC 01/18/21 19:56 Diltiazem HCl 125 mg/Sodium Chloride 125 ml @ 5 mls/hr CONT PRN IV TACHYCARDIA 01/18/21 20:15 01/19/21 11:35 Famotidine (Pepcid Vial) 20 mg BID IVP 01/18/21 21:00 01/19/21 10:35 Potassium Bicarbonate (Potassium Effervescent Tablet) 40 meq 1X ONCE PO 01/18/21 21:00 01/18/21 21:01 DC 01/18/21 20:31 Magnesium Oxide (Magnesium Oxide) 400 mg BID PO 01/19/21 00:05 01/20/21 09:01 01/19/21 10:34 Multivitamins 10 ml/Thiamine HCl 100 mg/Folic Acid 1 mg/Sodium Chloride 1,011.2 ml @ 75 mls/hr DAILY IV 01/19/21 13:15 01/23/21 22:29 01/19/21 15:12 Magnesium Sulfate 50 ml @ 25 mls/hr 1X ONCE IV 01/19/21 14:00 01/19/21 15:59 01/19/21 15:11 LAB Lab: Laboratory Tests Test 01/18/21 19:30 01/19/21 00:22 01/19/21 09:05 Sodium Level 134 mmol/L (136-145) L 134 mmol/L (136-145) L Potassium Level 2.9 mmol/L (3.5-5.1) *L 4.1 mmol/L (3.5-5.1) # Chloride Level 96 mmol/L (98-107) L 96 mmol/L (98-107) L Carbon Dioxide Level 22 mmol/L (21-32) 28 mmol/L (21-32) Anion Gap 16 (6-14) H 10 (6-14) Blood Urea Nitrogen 19 mg/dL (7-20) 9 mg/dL (7-20) Creatinine 0.9 mg/dL (0.6-1.0) 0.8 mg/dL (0.6-1.0) Estimated GFR (Cockcroft-Gault) 64.8 74.2 BUN/Creatinine Ratio 21 (6-20) H Glucose Level 112 mg/dL (70-99) H 106 mg/dL (70-99) H Calcium Level 7.2 mg/dL (8.5-10.1) L 7.6 mg/dL (8.5-10.1) L Magnesium Level 1.6 mg/dL (1.8-2.4) L 1.4 mg/dL (1.8-2.4) L Total Bilirubin 0.9 mg/dL (0.2-1.0) 1.0 mg/dL (0.2-1.0) Aspartate Amino Transferase (AST) 188 U/L (15-37) H 170 U/L (15-37) H Alanine Aminotransferase (ALT) 82 U/L (14-59) H 89 U/L (14-59) H Alkaline Phosphatase 116 U/L (46-116) 132 U/L (46-116) H Troponin I Quantitative 0.512 ng/mL (0.000-0.055) 0.482 ng/mL (0.000-0.055) Total Protein 5.9 g/dL (6.4-8.2) L 6.1 g/dL (6.4-8.2) L Albumin 2.4 g/dL (3.4-5.0) L 2.6 g/dL (3.4-5.0) L Albumin/Globulin Ratio 0.7 (1.0-1.7) L Clostridioides difficile Toxin (PCR) Negative (NEGATIVE) White Blood Count 10.2 x10^3/uL (4.0-11.0) Red Blood Count 3.12 x10^6/uL (3.50-5.40) L Hemoglobin 11.7 g/dL (12.0-15.5) L Hematocrit 33.9 % (36.0-47.0) L Mean Corpuscular Volume 109 fL (79-100) H Mean Corpuscular Hemoglobin 37 pg (25-35) H Mean Corpuscular Hemoglobin Concent 34 g/dL (31-37) Red Cell Distribution Width 17.1 % (11.5-14.5) H Platelet Count 88 x10^3/uL (140-400) L Neutrophils (%) (Auto) 77 % (31-73) H Lymphocytes (%) (Auto) 15 % (24-48) L Monocytes (%) (Auto) 8 % (0-9) Eosinophils (%) (Auto) 0 % (0-3) Basophils (%) (Auto) 0 % (0-3) Neutrophils # (Auto) 7.8 x10^3/uL (1.8-7.7) H Lymphocytes # (Auto) 1.5 x10^3/uL (1.0-4.8) Monocytes # (Auto) 0.8 x10^3/uL (0.0-1.1) Eosinophils # (Auto) 0.0 x10^3/uL (0.0-0.7) Basophils # (Auto) 0.0 x10^3/uL (0.0-0.2) Direct Bilirubin 0.4 mg/dL (0.0-0.2) H Creatine Kinase 1244 U/L (26-192) H Triglycerides Level 127 mg/dL (0-150) Cholesterol Level 220 mg/dL (0-200) H LDL Cholesterol, Calculated 143 mg/dL (0-100) H VLDL Cholesterol, Calculated 25 mg/dL (0-40) Non-HDL Cholesterol Calculated 168 mg/dL (0-129) H HDL Cholesterol 52 mg/dL (40-60) Cholesterol/HDL Ratio 4.2 Laboratory Tests 01/19/21 09:05 Laboratory Tests 01/18/21 19:30 01/19/21 09:05 ASSESSMENT & PLAN A&P Plan as noted above This note was created using [employer] and may have omissions and/or errors due to the nature of real-time voice [employer]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 Justifications for Admission Other Justification Nutrition Consultation Dietary Evaluation: Recommendations by RD: Dietary education by RD, Increase Calorie Intake, Add supplement feedings Comments: REC advance diet to regular as appropriate, offer Ensure supplements prn If unable to advance diet within 48 hrs, recommend consideration of TPN (pt has central line) for nutrition support while unable to advance diet, Expected Outcomes/Goals: diet advancement Malnutrition Findings: Food and Nutrition Intake (Mod: <75% est energy req 7days Weight Status: Underweight PINKY MORTON MD Jan 19, 2021 15:58
[2021-01-19] MEDS: NICOTINE 21MG PATCH. TD SCH (22:41)
[2021-01-19] MEDS: cefTRIAXone IV Push 1 GM VIAL. IVP SCH (22:42)
[2021-01-19] MEDS: ATORVASTATIN CALCIUM 20 MG TABLET PO SCH (22:42)
[2021-01-20] VITALS (16 sets, daily range): BP systolic 104–162; BP diastolic 66–103
[2021-01-20 07:21] LABS: ALBUMIN 2.7 g/dL (3.4-5.0); ALBUMIN/GLOBULIN RATIO 0.7 (1.0-1.7); CREATININE 0.6 mg/dL (0.6-1.0); GFR 103.4; TOTAL BILIRUBIN 1.1 mg/dL (0.2-1.0); TOTAL PROTEIN 6.8 g/dL (6.4-8.2)
[2021-01-20 07:25] LABS: POTASSIUM 2.4 mmol/L (3.5-5.1)
[2021-01-20] MEDS ORDERED: POTASSIUM CHLORIDE 20 MEQ TABLET.ER. PO ONE ×2 (08:15→19:30)
[2021-01-20 08:18] LABS: BASO % 0 % (0-3); EOS % 1 % (0-3); HEMATOCRIT 34.9 % (36.0-47.0); HEMOGLOBIN 12.1 g/dL (12.0-15.5); LYMPH # 1.5 x10^3/uL (1.0-4.8); LYMPH % 22 % (24-48); MEAN CORPUSCULAR HEMOGLOBIN 38 pg (25-35); MEAN CORPUSCULAR HGB CONC 35 g/dL (31-37); MEAN CORPUSCULAR VOLUME 108 fL (79-100); MONO # 0.9 x10^3/uL (0.0-1.1); MONO % 13 % (0-9); NEUT # 4.3 x10^3/uL (1.8-7.7); NEUT % 63 % (31-73); PLATELET COUNT 132 x10^3/uL (140-400); RED BLOOD COUNT 3.22 x10^6/uL (3.50-5.40); WHITE BLOOD COUNT 6.8 x10^3/uL (4.0-11.0)
[2021-01-20 08:24] LABS: MAGNESIUM 1.8 mg/dL (1.8-2.4); PHOSPHORUS 1.6 mg/dL (2.6-4.7)
[2021-01-20] MEDS: ELECTROLYTE (ICU) PROTOCOL. MC SCH (09:00)
[2021-01-20] MEDS: FAMOTIDINE 20 MG/2 ML VIAL IVP SCH ×2 (09:32→20:39)
[2021-01-20] MEDS: MAGNESIUM OXIDE 400 MG TABLET PO SCH (09:32)
[2021-01-20] MEDS: MULTIVIT INFUSN,ADULT 4,VIT K 10 ML, THIAMINE INJ 100 MG, FOLIC ACID INJ 1 MG in IV NOR... IV SCH (09:35)
[2021-01-20] MEDS: NICOTINE 21MG PATCH. TD SCH (09:48)
[2021-01-20] MEDS: POTASSIUM CHLORIDE 10MEQ 100 ML IV SCH ×7 (09:59→23:35)
--- NOTE | 2021-01-20 10:17 | PDOC ---
Infectious Disease Note Subjective: Subjective Patient feels better Still remains confused Vital Signs: Vital Signs Vital Signs Date Time Temp Pulse Resp B/P (MAP) Pulse Ox O2 Delivery O2 Flow Rate FiO2 01/20/21 07:00 96.8 89 24 119/81 (94) 99 Nasal Cannula 3.0 96.8 Physical Exam: PHYSICAL EXAM General alert awake female lying in bed comfortably no acute distress HEENT normocephalic atraumatic poor dentition no thrush oral mucosa dry Neck supple no JVD Lungs clear anteriorly no wheezing Heart S1-S2 no gallops murmurs Abdomen soft nondistended bowel sounds present nontender Extremities no edema or cyanosis 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 Labs: Lab Laboratory Tests Test 01/20/21 06:50 White Blood Count 6.8 x10^3/uL (4.0-11.0) Red Blood Count 3.22 x10^6/uL (3.50-5.40) Hemoglobin 12.1 g/dL (12.0-15.5) Hematocrit 34.9 % (36.0-47.0) Mean Corpuscular Volume 108 fL (79-100) Mean Corpuscular Hemoglobin 38 pg (25-35) Mean Corpuscular Hemoglobin Concent 35 g/dL (31-37) Red Cell Distribution Width 18.0 % (11.5-14.5) Platelet Count 132 x10^3/uL (140-400) Neutrophils (%) (Auto) 63 % (31-73) Lymphocytes (%) (Auto) 22 % (24-48) Monocytes (%) (Auto) 13 % (0-9) Eosinophils (%) (Auto) 1 % (0-3) Basophils (%) (Auto) 0 % (0-3) Neutrophils # (Auto) 4.3 x10^3/uL (1.8-7.7) Lymphocytes # (Auto) 1.5 x10^3/uL (1.0-4.8) Monocytes # (Auto) 0.9 x10^3/uL (0.0-1.1) Eosinophils # (Auto) 0.0 x10^3/uL (0.0-0.7) Basophils # (Auto) 0.0 x10^3/uL (0.0-0.2) Sodium Level 133 mmol/L (136-145) Potassium Level 2.4 mmol/L (3.5-5.1) Chloride Level 95 mmol/L (98-107) Carbon Dioxide Level 25 mmol/L (21-32) Anion Gap 13 (6-14) Blood Urea Nitrogen 5 mg/dL (7-20) Creatinine 0.6 mg/dL (0.6-1.0) Estimated GFR (Cockcroft-Gault) 103.4 BUN/Creatinine Ratio 8 (6-20) Glucose Level 87 mg/dL (70-99) Calcium Level 8.0 mg/dL (8.5-10.1) Phosphorus Level 1.6 mg/dL (2.6-4.7) Magnesium Level 1.8 mg/dL (1.8-2.4) Total Bilirubin 1.1 mg/dL (0.2-1.0) Aspartate Amino Transf (AST/SGOT) 112 U/L (15-37) Alanine Aminotransferase (ALT/SGPT) 83 U/L (14-59) Alkaline Phosphatase 124 U/L (46-116) Total Protein 6.8 g/dL (6.4-8.2) Albumin 2.7 g/dL (3.4-5.0) Albumin/Globulin Ratio 0.7 (1.0-1.7) Objective: Assessment: Encephalopathy improving Seizure-like activity on presentation at [facility], no further seizure activity reported here Sepsis now resolved BC neg at [facility] Leukocytosis resolved UTI UC neg at [facility] Hematuria,rhabdomyolysis Anemia and thrombocytopenia Hypokalemia and hyponatremia, FRANCESCA improving Atrial fibrillation History of fall POA History of anxiety, depression Fibromyalgia Hyperlipidemia CAD Tobaccoism Heavy EtOH dependence Right distal clavicular fracture and widening of the coracoclavicular space which could be associated ligamentous injury Plan: Plan of Care Continue Rocephin f/u uc from [facility] ,neg so far bc remain negative Follow-up labs and cultures Maintain aspiration precaution Supportive care Pain control per primary D/W OZIEL COLE MD Jan 20, 2021 10:17
--- NOTE | 2021-01-20 10:51 | PDOC ---
Renal-Progress Notes Subjective Notes Notes NO NEW COMPLAINTS History of Present Illness Hx of present illness REMAINS CONFUSED Vitals Vitals Vital Signs Date Time Temp Pulse Resp B/P (MAP) Pulse Ox O2 Delivery O2 Flow Rate FiO2 01/20/21 07:00 96.8 89 24 119/81 (94) 99 Nasal Cannula 3.0 96.8 Weight Weight [ ] I.O. Intake and Output Intake and Output 01/20/21 07:00 Intake Total 1265 ml Output Total 2450 ml Balance -1185 ml Intake Oral 240 ml IV Total 1025 ml Output Urine Total 2450 ml # Bowel Movements 5 Labs Labs Laboratory Tests Test 01/20/21 06:50 White Blood Count 6.8 x10^3/uL (4.0-11.0) Red Blood Count 3.22 x10^6/uL (3.50-5.40) Hemoglobin 12.1 g/dL (12.0-15.5) Hematocrit 34.9 % (36.0-47.0) Mean Corpuscular Volume 108 fL (79-100) Mean Corpuscular Hemoglobin 38 pg (25-35) Mean Corpuscular Hemoglobin Concent 35 g/dL (31-37) Red Cell Distribution Width 18.0 % (11.5-14.5) Platelet Count 132 x10^3/uL (140-400) Neutrophils (%) (Auto) 63 % (31-73) Lymphocytes (%) (Auto) 22 % (24-48) Monocytes (%) (Auto) 13 % (0-9) Eosinophils (%) (Auto) 1 % (0-3) Basophils (%) (Auto) 0 % (0-3) Neutrophils # (Auto) 4.3 x10^3/uL (1.8-7.7) Lymphocytes # (Auto) 1.5 x10^3/uL (1.0-4.8) Monocytes # (Auto) 0.9 x10^3/uL (0.0-1.1) Eosinophils # (Auto) 0.0 x10^3/uL (0.0-0.7) Basophils # (Auto) 0.0 x10^3/uL (0.0-0.2) Sodium Level 133 mmol/L (136-145) Potassium Level 2.4 mmol/L (3.5-5.1) Chloride Level 95 mmol/L (98-107) Carbon Dioxide Level 25 mmol/L (21-32) Anion Gap 13 (6-14) Blood Urea Nitrogen 5 mg/dL (7-20) Creatinine 0.6 mg/dL (0.6-1.0) Estimated GFR (Cockcroft-Gault) 103.4 BUN/Creatinine Ratio 8 (6-20) Glucose Level 87 mg/dL (70-99) Calcium Level 8.0 mg/dL (8.5-10.1) Phosphorus Level 1.6 mg/dL (2.6-4.7) Magnesium Level 1.8 mg/dL (1.8-2.4) Total Bilirubin 1.1 mg/dL (0.2-1.0) Aspartate Amino Transf (AST/SGOT) 112 U/L (15-37) Alanine Aminotransferase (ALT/SGPT) 83 U/L (14-59) Alkaline Phosphatase 124 U/L (46-116) Total Protein 6.8 g/dL (6.4-8.2) Albumin 2.7 g/dL (3.4-5.0) Albumin/Globulin Ratio 0.7 (1.0-1.7) Review of Systems Constitutional: yes: alert, other (CONFUSED) Ears/Nose/Throat: Yes: no symptom reported Eyes: Yes: no symptom reported Pulmonary: Yes no symptom reported Cardiovascular: Yes no symptom reported Gastrointestional: Yes: no symptom reported Genitourinary: Yes: no symptom reported Musculoskeletal: Yes: no symptom reported Skin: Yes no symptom reported Psychiatric/Neurological: Yes: no symptom reported Endocrine: Yes: no symptom reported Physical Exam General Appearance: no apparent distress Skin: warm Respiratory: decreased breath sounds Heart: S1S2 Abdomen: soft, bowel sounds present Genitourinary: bladder flat Extremities: atrophy Neurology: alert, confused Assessment Assessment IMP FRANCESCA-RESOLVED HYPOKALEMIA HYPOMAGNESEMIA-CORRECTED SEPSIS ENCEPHALOPATHY DIARRHEA UTI R CLAVICLE FRACTURE PLAN REPLACE K AND MAG NEEDED HYDRATION WINNIE BOURNE MD Jan 20, 2021 10:51
--- NOTE | 2021-01-20 12:36 | PDOC ---
GENERAL General: Patient examined chart reviewed discussed with nursing. Patient is resting on my evaluation this morning does not awaken for examination. Nurse tells me that she is doing much better today more cogent, requiring less sedatives on the alcohol withdrawal protocol. She continues to have significant electrolyte electrolyte disturbances including severe hypokalemia, hypomagnesemia, and hypophosphatemia. We will replace all of those accordingly. 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 She has not been vomiting nor has she had further diarrhea. Hopefully we can encourage her to set up with alcohol rehab on discharge. She will need a very robust discharge plan to prevent readmission. Electrolytes are ordered for the morning. We will continue current management. Problems: (1) Alcohol withdrawal seizure with delirium (2) Chronic alcoholism (3) Hypokalemia (4) Hypomagnesemia (5) Hypophosphatemia VITAL SIGNS Vital Signs/I&O: Vital Signs Date Time Temp Pulse Resp B/P (MAP) Pulse Ox O2 Delivery O2 Flow Rate FiO2 01/20/21 11:00 97.4 97 22 118/76 (90) 97 Nasal Cannula 3.0 97.4 I & O 01/19/21 01/19/21 01/20/21 15:00 23:00 07:00 Intake Total 240 ml 50 ml 975 ml Output Total 1200 ml 1250 ml Balance 240 ml -1150 ml -275 ml In general patient is sleeping soundly she did not awaken on my evaluation HEENT exam is unremarkable for acute abnormality Chest is clear to auscultation Heart S1-S2 normal regular rate and rhythm no murmurs or gallops are noted Abdomen soft nontender nondistended no masses organomegaly noted Extremity exam is unremarkable for acute abnormality ALLERGIES Allergies: Allergies Coded Allergies Type Severity Reaction Last Updated Verified No Known Drug Allergies 02/02/17 No MEDS Medications: Current Medications Medications (Trade) Dose Ordered Sig/Josué Start Time Stop Time Status Last Admin Dose Admin Atorvastatin Calcium (Lipitor) 20 mg QHS 01/19/21 21:00 01/19/21 22:42 Ceftriaxone Sodium (Rocephin) 1 gm Q24H 01/18/21 21:00 01/19/21 22:42 Digoxin (Lanoxin) 250 mcg 1X ONCE 01/18/21 19:45 01/18/21 19:46 DC 01/18/21 19:56 Diltiazem HCl 125 mg/Sodium Chloride 125 ml @ 5 mls/hr CONT PRN 01/18/21 20:15 01/20/21 06:55 Diphenhydramine HCl (Benadryl) 25 mg PRN Q15MIN PRN 01/17/21 21:15 Famotidine (Pepcid Vial) 20 mg BID 01/18/21 21:00 01/20/21 09:32 Haloperidol Lactate (Haldol Inj) 5 mg PRN Q4HRS PRN 01/17/21 21:15 Info (Icu Electrolyte Protocol) 1 ea DAILY 01/18/21 09:00 01/19/21 09:00 Lorazepam (Ativan Inj) 4 mg 1X ONCE 01/17/21 21:45 01/17/21 21:46 DC 01/19/21 10:36 Magnesium Oxide (Magnesium Oxide) 400 mg BID 01/19/21 00:05 01/20/21 09:01 DC 01/20/21 09:32 Magnesium Sulfate 50 ml @ 25 mls/hr 1X ONCE 01/19/21 14:00 01/19/21 15:59 DC 01/19/21 15:11 Multivitamins 10 ml/Thiamine HCl 100 mg/Folic Acid 1 mg/Sodium Chloride 1,011.2 ml @ 75 mls/hr DAILY 01/19/21 13:15 01/23/21 22:29 01/20/21 09:35 Nicotine (Nicoderm Cq 21mg) 1 patch DAILY 01/19/21 20:00 01/20/21 09:48 Norepinephrine Bitartrate 8 mg/ Dextrose 258 ml @ 9.501 mls/ hr CONT PRN 01/17/21 21:45 Potassium Bicarbonate (Potassium Effervescent Tablet) 40 meq 1X ONCE 01/18/21 21:00 01/18/21 21:01 DC 01/18/21 20:31 Potassium Chloride/Sodium Chloride 1,000 ml @ 125 mls/hr Q8H 01/18/21 00:00 01/19/21 13:23 DC 01/19/21 02:21 Potassium Chloride/Water 100 ml @ 100 mls/hr Q1H 01/20/21 09:00 01/20/21 12:59 01/20/21 12:17 Potassium Chloride (Klor-Con) 40 meq 1X ONCE 01/20/21 08:15 01/20/21 08:19 DC 01/20/21 09:33 Sodium Chloride 1,000 ml @ 75 mls/hr [id number] 01/19/21 10:30 Thiamine Mononitrate (Vitamin B-1) 100 mg DAILY 01/24/21 09:00 Current Medications Medications (Trade) Dose Ordered Sig/Josué Route PRN Reason Start Time Stop Time Status Last Admin Dose Admin Multivitamins 10 ml/Thiamine HCl 100 mg/Folic Acid 1 mg/Sodium Chloride 1,011.2 ml @ 75 mls/hr DAILY IV 01/19/21 13:15 01/23/21 22:29 01/20/21 09:35 Magnesium Sulfate 50 ml @ 25 mls/hr 1X ONCE IV 01/19/21 14:00 01/19/21 15:59 DC 01/19/21 15:11 Atorvastatin Calcium (Lipitor) 20 mg QHS PO 01/19/21 21:00 01/19/21 22:42 Nicotine (Nicoderm Cq 21mg) 1 patch DAILY TD 01/19/21 20:00 01/20/21 09:48 Potassium Chloride (Klor-Con) 40 meq 1X ONCE PO 01/20/21 08:15 01/20/21 08:19 DC 01/20/21 09:33 Potassium Chloride/Water 100 ml @ 100 mls/hr Q1H IV 01/20/21 09:00 01/20/21 12:59 01/20/21 12:17 LAB Lab: Laboratory Tests Test 01/20/21 06:50 White Blood Count 6.8 x10^3/uL (4.0-11.0) Red Blood Count 3.22 x10^6/uL (3.50-5.40) L Hemoglobin 12.1 g/dL (12.0-15.5) Hematocrit 34.9 % (36.0-47.0) L Mean Corpuscular Volume 108 fL (79-100) H Mean Corpuscular Hemoglobin 38 pg (25-35) H Mean Corpuscular Hemoglobin Concent 35 g/dL (31-37) Red Cell Distribution Width 18.0 % (11.5-14.5) H Platelet Count 132 x10^3/uL (140-400) L Neutrophils (%) (Auto) 63 % (31-73) Lymphocytes (%) (Auto) 22 % (24-48) L Monocytes (%) (Auto) 13 % (0-9) H Eosinophils (%) (Auto) 1 % (0-3) Basophils (%) (Auto) 0 % (0-3) Neutrophils # (Auto) 4.3 x10^3/uL (1.8-7.7) Lymphocytes # (Auto) 1.5 x10^3/uL (1.0-4.8) Monocytes # (Auto) 0.9 x10^3/uL (0.0-1.1) Eosinophils # (Auto) 0.0 x10^3/uL (0.0-0.7) Basophils # (Auto) 0.0 x10^3/uL (0.0-0.2) Sodium Level 133 mmol/L (136-145) L Potassium Level 2.4 mmol/L (3.5-5.1) #*L Chloride Level 95 mmol/L (98-107) L Carbon Dioxide Level 25 mmol/L (21-32) Anion Gap 13 (6-14) Blood Urea Nitrogen 5 mg/dL (7-20) L Creatinine 0.6 mg/dL (0.6-1.0) Estimated GFR (Cockcroft-Gault) 103.4 BUN/Creatinine Ratio 8 (6-20) Glucose Level 87 mg/dL (70-99) Calcium Level 8.0 mg/dL (8.5-10.1) L Phosphorus Level 1.6 mg/dL (2.6-4.7) L Magnesium Level 1.8 mg/dL (1.8-2.4) Total Bilirubin 1.1 mg/dL (0.2-1.0) H Aspartate Amino Transferase (AST) 112 U/L (15-37) H Alanine Aminotransferase (ALT) 83 U/L (14-59) H Alkaline Phosphatase 124 U/L (46-116) H Total Protein 6.8 g/dL (6.4-8.2) Albumin 2.7 g/dL (3.4-5.0) L Albumin/Globulin Ratio 0.7 (1.0-1.7) L Laboratory Tests 01/20/21 06:50 Laboratory Tests 01/20/21 06:50 ASSESSMENT & PLAN A&P Plan as noted above This note was created using [employer] and may have omissions and/or errors due to the nature of real-time voice note taker. Justifications for Admission Other Justification Nutrition Consultation Dietary Evaluation: Recommendations by RD: Dietary education by RD, Increase Calorie Intake, Add supplement feedings Comments: REC advance diet to regular as appropriate, offer Ensure supplements prn If unable to advance diet within 48 hrs, recommend consideration of TPN (pt has central line) for nutrition support while unable to advance diet, Expected Outcomes/Goals: diet advancement Malnutrition Findings: Food and Nutrition Intake (Mod: <75% est energy req 7days Weight Status: Underweight PINKY MORTON MD Jan 20, 2021 12:36
--- NOTE | 2021-01-20 12:39 | PDOC ---
PROGRESS NOTES Date of Service DATE: 01/20/21 TIME: 12:38 Subjective Subjective Patient seen and examined The patient is significantly more alert today. Objective Objective Vital Signs Date Time Temp Pulse Resp B/P (MAP) Pulse Ox O2 Delivery O2 Flow Rate FiO2 01/20/21 12:00 94 109/67 (81) 01/20/21 11:00 97.4 22 97 Nasal Cannula 3.0 97.4 Intake and Output 01/20/21 07:00 Intake Total 1265 ml Output Total 2450 ml Balance -1185 ml Intake Oral 240 ml IV Total 1025 ml Output Urine Total 2450 ml # Bowel Movements 5 Physical Exam Abdomen: Normal bowel sounds Heart: Regular rate General: mild distress Lungs: Clear to auscultation Assessment Assessment 1. Possible seizure disorder. Heavy alcohol use by report. Patient is more comfortable today. 2. Elevated troponin at 2.362. EKG shows a sinus rhythm with some T wave inversion but no ST elevation. History of a 30% lesion in the LAD in January 2017. Troponin has decreased to 0.482. Would continue medical treatment. Outpatient ischemia evaluation. 3. Hypertension. Improved. Continue present treatment. 4. Urinary tract infection with possible sepsis. Being followed by ID. 5. History of hyperlipidemia. LDL of 143 with an HDL of 52. On a statin. Comment Review of Relevant I have reviewed the following items renny (where applicable) has been applied. Labs Laboratory Tests Test 01/18/21 12:39 01/18/21 19:30 01/19/21 00:22 01/19/21 09:05 White Blood Count 10.7 x10^3/uL (4.0-11.0) 10.2 x10^3/uL (4.0-11.0) Red Blood Count 2.84 x10^6/uL (3.50-5.40) 3.12 x10^6/uL (3.50-5.40) Hemoglobin 10.6 g/dL (12.0-15.5) 11.7 g/dL (12.0-15.5) Hematocrit 30.5 % (36.0-47.0) 33.9 % (36.0-47.0) Mean Corpuscular Volume 107 fL (79-100) 109 fL (79-100) Mean Corpuscular Hemoglobin 37 pg (25-35) 37 pg (25-35) Mean Corpuscular Hemoglobin Concent 35 g/dL (31-37) 34 g/dL (31-37) Red Cell Distribution Width 16.5 % (11.5-14.5) 17.1 % (11.5-14.5) Platelet Count 67 x10^3/uL (140-400) 88 x10^3/uL (140-400) Neutrophils (%) (Auto) 76 % (31-73) 77 % (31-73) Lymphocytes (%) (Auto) 17 % (24-48) 15 % (24-48) Monocytes (%) (Auto) 7 % (0-9) 8 % (0-9) Eosinophils (%) (Auto) 0 % (0-3) 0 % (0-3) Basophils (%) (Auto) 0 % (0-3) 0 % (0-3) Neutrophils # (Auto) 8.1 x10^3/uL (1.8-7.7) 7.8 x10^3/uL (1.8-7.7) Lymphocytes # (Auto) 1.8 x10^3/uL (1.0-4.8) 1.5 x10^3/uL (1.0-4.8) Monocytes # (Auto) 0.7 x10^3/uL (0.0-1.1) 0.8 x10^3/uL (0.0-1.1) Eosinophils # (Auto) 0.0 x10^3/uL (0.0-0.7) 0.0 x10^3/uL (0.0-0.7) Basophils # (Auto) 0.0 x10^3/uL (0.0-0.2) 0.0 x10^3/uL (0.0-0.2) Sodium Level 135 mmol/L (136-145) 134 mmol/L (136-145) 134 mmol/L (136-145) Potassium Level 3.4 mmol/L (3.5-5.1) 2.9 mmol/L (3.5-5.1) 4.1 mmol/L (3.5-5.1) Chloride Level 97 mmol/L (98-107) 96 mmol/L (98-107) 96 mmol/L (98-107) Carbon Dioxide Level 29 mmol/L (21-32) 22 mmol/L (21-32) 28 mmol/L (21-32) Anion Gap 9 (6-14) 16 (6-14) 10 (6-14) Blood Urea Nitrogen 24 mg/dL (7-20) 19 mg/dL (7-20) 9 mg/dL (7-20) Creatinine 1.2 mg/dL (0.6-1.0) 0.9 mg/dL (0.6-1.0) 0.8 mg/dL (0.6-1.0) Estimated GFR (Cockcroft-Gault) 46.5 64.8 74.2 Glucose Level 57 mg/dL (70-99) 112 mg/dL (70-99) 106 mg/dL (70-99) Calcium Level 6.6 mg/dL (8.5-10.1) 7.2 mg/dL (8.5-10.1) 7.6 mg/dL (8.5-10.1) Troponin I Quantitative 0.530 ng/mL (0.000-0.055) 0.512 ng/mL (0.000-0.055) 0.482 ng/mL (0.000-0.055) BUN/Creatinine Ratio 21 (6-20) Magnesium Level 1.6 mg/dL (1.8-2.4) 1.4 mg/dL (1.8-2.4) Total Bilirubin 0.9 mg/dL (0.2-1.0) 1.0 mg/dL (0.2-1.0) Aspartate Amino Transf (AST/SGOT) 188 U/L (15-37) 170 U/L (15-37) Alanine Aminotransferase (ALT/SGPT) 82 U/L (14-59) 89 U/L (14-59) Alkaline Phosphatase 116 U/L (46-116) 132 U/L (46-116) Total Protein 5.9 g/dL (6.4-8.2) 6.1 g/dL (6.4-8.2) Albumin 2.4 g/dL (3.4-5.0) 2.6 g/dL (3.4-5.0) Albumin/Globulin Ratio 0.7 (1.0-1.7) Clostridium difficile Toxin (PCR) Negative (NEGATIVE) Direct Bilirubin 0.4 mg/dL (0.0-0.2) Creatine Kinase 1244 U/L (26-192) Triglycerides Level 127 mg/dL (0-150) Cholesterol Level 220 mg/dL (0-200) LDL Cholesterol, Calculated 143 mg/dL (0-100) VLDL Cholesterol, Calculated 25 mg/dL (0-40) Non-HDL Cholesterol Calculated 168 mg/dL (0-129) HDL Cholesterol 52 mg/dL (40-60) Cholesterol/HDL Ratio 4.2 Test 01/20/21 06:50 White Blood Count 6.8 x10^3/uL (4.0-11.0) Red Blood Count 3.22 x10^6/uL (3.50-5.40) Hemoglobin 12.1 g/dL (12.0-15.5) Hematocrit 34.9 % (36.0-47.0) Mean Corpuscular Volume 108 fL (79-100) Mean Corpuscular Hemoglobin 38 pg (25-35) Mean Corpuscular Hemoglobin Concent 35 g/dL (31-37) Red Cell Distribution Width 18.0 % (11.5-14.5) Platelet Count 132 x10^3/uL (140-400) Neutrophils (%) (Auto) 63 % (31-73) Lymphocytes (%) (Auto) 22 % (24-48) Monocytes (%) (Auto) 13 % (0-9) Eosinophils (%) (Auto) 1 % (0-3) Basophils (%) (Auto) 0 % (0-3) Neutrophils # (Auto) 4.3 x10^3/uL (1.8-7.7) Lymphocytes # (Auto) 1.5 x10^3/uL (1.0-4.8) Monocytes # (Auto) 0.9 x10^3/uL (0.0-1.1) Eosinophils # (Auto) 0.0 x10^3/uL (0.0-0.7) Basophils # (Auto) 0.0 x10^3/uL (0.0-0.2) Sodium Level 133 mmol/L (136-145) Potassium Level 2.4 mmol/L (3.5-5.1) Chloride Level 95 mmol/L (98-107) Carbon Dioxide Level 25 mmol/L (21-32) Anion Gap 13 (6-14) Blood Urea Nitrogen 5 mg/dL (7-20) Creatinine 0.6 mg/dL (0.6-1.0) Estimated GFR (Cockcroft-Gault) 103.4 BUN/Creatinine Ratio 8 (6-20) Glucose Level 87 mg/dL (70-99) Calcium Level 8.0 mg/dL (8.5-10.1) Phosphorus Level 1.6 mg/dL (2.6-4.7) Magnesium Level 1.8 mg/dL (1.8-2.4) Total Bilirubin 1.1 mg/dL (0.2-1.0) Aspartate Amino Transf (AST/SGOT) 112 U/L (15-37) Alanine Aminotransferase (ALT/SGPT) 83 U/L (14-59) Alkaline Phosphatase 124 U/L (46-116) Total Protein 6.8 g/dL (6.4-8.2) Albumin 2.7 g/dL (3.4-5.0) Albumin/Globulin Ratio 0.7 (1.0-1.7) Laboratory Tests Test 01/20/21 06:50 White Blood Count 6.8 x10^3/uL (4.0-11.0) Red Blood Count 3.22 x10^6/uL (3.50-5.40) Hemoglobin 12.1 g/dL (12.0-15.5) Hematocrit 34.9 % (36.0-47.0) Mean Corpuscular Volume 108 fL (79-100) Mean Corpuscular Hemoglobin 38 pg (25-35) Mean Corpuscular Hemoglobin Concent 35 g/dL (31-37) Red Cell Distribution Width 18.0 % (11.5-14.5) Platelet Count 132 x10^3/uL (140-400) Neutrophils (%) (Auto) 63 % (31-73) Lymphocytes (%) (Auto) 22 % (24-48) Monocytes (%) (Auto) 13 % (0-9) Eosinophils (%) (Auto) 1 % (0-3) Basophils (%) (Auto) 0 % (0-3) Neutrophils # (Auto) 4.3 x10^3/uL (1.8-7.7) Lymphocytes # (Auto) 1.5 x10^3/uL (1.0-4.8) Monocytes # (Auto) 0.9 x10^3/uL (0.0-1.1) Eosinophils # (Auto) 0.0 x10^3/uL (0.0-0.7) Basophils # (Auto) 0.0 x10^3/uL (0.0-0.2) Sodium Level 133 mmol/L (136-145) Potassium Level 2.4 mmol/L (3.5-5.1) Chloride Level 95 mmol/L (98-107) Carbon Dioxide Level 25 mmol/L (21-32) Anion Gap 13 (6-14) Blood Urea Nitrogen 5 mg/dL (7-20) Creatinine 0.6 mg/dL (0.6-1.0) Estimated GFR (Cockcroft-Gault) 103.4 BUN/Creatinine Ratio 8 (6-20) Glucose Level 87 mg/dL (70-99) Calcium Level 8.0 mg/dL (8.5-10.1) Phosphorus Level 1.6 mg/dL (2.6-4.7) Magnesium Level 1.8 mg/dL (1.8-2.4) Total Bilirubin 1.1 mg/dL (0.2-1.0) Aspartate Amino Transf (AST/SGOT) 112 U/L (15-37) Alanine Aminotransferase (ALT/SGPT) 83 U/L (14-59) Alkaline Phosphatase 124 U/L (46-116) Total Protein 6.8 g/dL (6.4-8.2) Albumin 2.7 g/dL (3.4-5.0) Albumin/Globulin Ratio 0.7 (1.0-1.7) Medications Current Medications Potassium Chloride/Water 100 ml @ 100 mls/hr Q1H IV Last administered on 01/17/21at 23:31; Start 01/17/21 at 21:45; Stop 01/17/21 at 23:44; Status DC Lorazepam (Ativan Inj) 2 mg PRN Q1HR PRN IV For CIWA 8-14 Last administered on 01/20/21at 00:15; Start 01/17/21 at 21:15 Lorazepam (Ativan Inj) 4 mg PRN Q1HR PRN IV For CIWA 15 or greater; Start 01/17/21 at 21:15 Haloperidol Lactate (Haldol Inj) 5 mg PRN Q4HRS PRN IVP Hallucinatns,Confusn,Delirium; Start 01/17/21 at 21:15 Diphenhydramine HCl (Benadryl) 25 mg PRN Q15MIN PRN IVP EPS symptoms 2'Haldol admin; Start 01/17/21 at 21:15 Lorazepam (Ativan Inj) 2 mg PRN Q15MIN PRN IV SEE COMMENTS; Start 01/17/21 at 21:15 Lorazepam (Ativan Inj) 4 mg PRN Q15MIN PRN IV SEE COMMENTS; Start 01/17/21 at 21:15 Lorazepam (Ativan Inj) 4 mg 1X ONCE IVP Last administered on 01/19/21at 10:36; Start 01/17/21 at 21:45; Stop 01/17/21 at 21:46; Status DC Ceftriaxone Sodium (Rocephin) 1 gm Q24H IVP Last administered on 01/19/21at 22:42; Start 01/18/21 at 21:00; Stop 01/20/21 at 12:29; Status DC Info (Icu Electrolyte Protocol) 1 ea DAILY MC Last administered on 01/19/21at 09:00; Start 01/18/21 at 09:00 Potassium Chloride/Sodium Chloride 1,000 ml @ 125 mls/hr Q8H IV ; Start 01/17/21 at 21:45; Stop 01/17/21 at 22:10; Status DC Norepinephrine Bitartrate 8 mg/ Dextrose 258 ml @ 9.501 mls/ hr CONT PRN IV PER PROTOCOL; Start 01/17/21 at 21:45 Potassium Chloride/Sodium Chloride 1,000 ml @ 125 mls/hr Q8H IV Last administered on 01/19/21at 02:21; Start 01/18/21 at 00:00; Stop 01/19/21 at 13:23; Status DC Potassium Chloride/Water 100 ml @ 100 mls/hr Q1H IV Last administered on 01/18/21at 10:52; Start 01/18/21 at 06:45; Stop 01/18/21 at 10:44; Status DC Digoxin (Lanoxin) 250 mcg 1X ONCE IV Last administered on 01/18/21at 19:56; Start 01/18/21 at 19:45; Stop 01/18/21 at 19:46; Status DC Diltiazem HCl 125 mg/Sodium Chloride 125 ml @ 5 mls/hr CONT PRN IV TACHYCARDIA Last administered on 01/20/21at 06:55; Start 01/18/21 at 20:15 Famotidine (Pepcid Vial) 20 mg BID IVP Last administered on 01/20/21at 09:32; Start 01/18/21 at 21:00 Potassium Bicarbonate (Potassium Effervescent Tablet) 40 meq 1X ONCE PO Last administered on 01/18/21at 20:31; Start 01/18/21 at 21:00; Stop 01/18/21 at 2 1:01; Status DC Magnesium Oxide (Magnesium Oxide) 400 mg BID PO Last administered on 01/20/21at 09:32; Start 01/19/21 at 00:05; Stop 01/20/21 at 09:01; Status DC Sodium Chloride 1,000 ml @ 75 mls/hr [id number] IV ; Start 01/19/21 at 10:30 Multivitamins 10 ml/Thiamine HCl 100 mg/Folic Acid 1 mg/Sodium Chloride 1,011.2 ml @ 75 mls/hr DAILY IV Last administered on 01/20/21at 09:35; Start 01/19/21 at 13:15; Stop 01/23/21 at 22:29 Thiamine Mononitrate (Vitamin B-1) 100 mg DAILY PO ; Start 01/24/21 at 09:00 Magnesium Sulfate 50 ml @ 25 mls/hr 1X ONCE IV Last administered on 01/19/21at 15:11; Start 01/19/21 at 14:00; Stop 01/19/21 at 15:59; Status DC Atorvastatin Calcium (Lipitor) 20 mg QHS PO Last administered on 01/19/21at 22:42; Start 01/19/21 at 21:00 Nicotine (Nicoderm Cq 21mg) 1 patch DAILY TD Last administered on 01/20/21at 09:48; Start 01/19/21 at 20:00 Potassium Chloride (Klor-Con) 40 meq 1X ONCE PO Last administered on 01/20/21at 09:33; Start 01/20/21 at 08:15; Stop 01/20/21 at 08:19; Status DC Potassium Chloride/Water 100 ml @ 100 mls/hr Q1H IV Last administered on 01/20/21at 12:17; Start 01/20/21 at 09:00; Stop 01/20/21 at 12:59 Magnesium Oxide (Magnesium Oxide) 400 mg DAILY PO ; Start 01/21/21 at 09:00 Potassium Phos/ Sodium Phos (Phos-Nak) 1 pkt DAILY PO ; Start 01/20/21 at 12:30 Active Scripts Active Reported Carvedilol (Carvedilol) 6.25 Mg Tablet 6.25 Mg PO BIDWMEALS Hydroxyzine Hcl 25 Mg Tablet 1 Tab PO HS Cymbalta (Duloxetine Hcl) 30 Mg Capsule.dr 3 Cap PO DAILY Vitals/I & O Vital Sign - Last 24 Hours 01/19/21 01/19/21 01/19/21 01/19/21 13:04 14:29 15:04 16:04 Temp 98.4 98.4 Pulse 101 106 100 96 Resp 22 B/P (MAP) 140/80 (100) 142/73 (96) 135/78 (97) 109/63 (78) Pulse Ox 96 O2 Delivery Nasal Cannula O2 Flow Rate 2.0 01/19/21 01/19/21 01/19/21 01/19/21 17:04 18:04 19:30 20:04 Temp 98.1 98.1 Pulse 97 105 95 101 Resp 26 B/P (MAP) 122/74 (90) 95/74 (81) 117/70 (86) 136/81 (99) Pulse Ox 90 96 O2 Delivery Nasal Cannula Nasal Cannula O2 Flow Rate 3.0 3.0 01/19/21 01/19/21 01/19/21 01/19/21 20:11 21:04 22:04 23:00 Pulse 102 102 109 Resp 36 B/P (MAP) 147/75 (99) 142/87 (105) Pulse Ox 99 97 O2 Delivery Nasal Cannula Nasal Cannula Nasal Cannula Nasal Cannula O2 Flow Rate 3.0 3.0 3.0 01/20/21 01/20/21 01/20/21 01/20/21 01:04 02:04 03:07 05:24 Pulse 101 112 109 87 B/P (MAP) 158/103 (121) 162/95 (117) 152/77 (102) 119/81 (94) Pulse Ox 97 94 94 98 O2 Delivery Nasal Cannula Nasal Cannula Nasal Cannula O2 Flow Rate 3.0 3.0 3.0 01/20/21 01/20/21 01/20/21 01/20/21 07:00 07:40 08:00 10:00 Temp 96.8 96.8 Pulse 89 80 85 Resp 24 B/P (MAP) 119/81 (94) 108/84 (92) 107/66 (80) Pulse Ox 99 O2 Delivery Nasal Cannula Nasal Cannula O2 Flow Rate 3.0 3.0 01/20/21 01/20/21 11:00 12:00 Temp 97.4 97.4 Pulse 97 94 Resp 22 B/P (MAP) 118/76 (90) 109/67 (81) Pulse Ox 97 O2 Delivery Nasal Cannula O2 Flow Rate 3.0 Intake and Output 01/19/21 01/19/21 01/20/21 15:00 23:00 07:00 Intake Total 240 ml 50 ml 975 ml Output Total 1200 ml 1250 ml Balance 240 ml -1150 ml -275 ml Justifications for Admission Other Justification Nutrition Consultation Dietary Evaluation: Recommendations by RD: Dietary education by RD, Increase Calorie Intake, Add supplement feedings Comments: REC advance diet to regular as appropriate, offer Ensure supplements prn If unable to advance diet within 48 hrs, recommend consideration of TPN (pt has central line) for nutrition support while unable to advance diet, Expected Outcomes/Goals: diet advancement Malnutrition Findings: Food and Nutrition Intake (Mod: <75% est energy req 7days Weight Status: Underweight ЕЛЕНА HUTCHINSON MD Jan 20, 2021 12:39
[2021-01-20] MEDS: IV NORMAL SALINE 1000ML BAG 1,000 ML IV SCH (13:10)
[2021-01-20] MEDS: POTASSIUM & SODIUM PHOSPHATES PACKET. PO SCH (13:23)
[2021-01-20 18:52] LABS: CALCIUM 7.4 mg/dL (8.5-10.1); CREATININE 0.7 mg/dL (0.6-1.0); GFR 86.6
[2021-01-20 18:55] LABS: POTASSIUM 2.8 mmol/L (3.5-5.1)
[2021-01-20] MEDS ORDERED: ELECTROLYTE (NON-ICU) PROTOCOL. MC PRN (19:30)
[2021-01-20] MEDS: cefTRIAXone IV Push 1 GM VIAL. IVP SCH (20:39)
[2021-01-20] MEDS: ATORVASTATIN CALCIUM 20 MG TABLET PO SCH (20:42)
[2021-01-21] VITALS (11 sets, daily range): BP systolic 108–163; BP diastolic 66–92
[2021-01-21] MEDS: POTASSIUM CHLORIDE 10MEQ 100 ML IV SCH (02:10)
[2021-01-21] MEDS: IV NORMAL SALINE 1000ML BAG 1,000 ML IV SCH (02:15)
[2021-01-21] MEDS: MAGNESIUM OXIDE 400 MG TABLET PO SCH (08:10)
[2021-01-21] MEDS: POTASSIUM & SODIUM PHOSPHATES PACKET. PO SCH (08:10)
[2021-01-21] MEDS: NICOTINE 21MG PATCH. TD SCH (08:13)
[2021-01-21] MEDS: FAMOTIDINE 20 MG/2 ML VIAL IVP SCH ×2 (08:14→20:07)
[2021-01-21 08:21] LABS: BASO % 0 % (0-3); EOS # 0.1 x10^3/uL (0.0-0.7); EOS % 1 % (0-3); HEMATOCRIT 33.4 % (36.0-47.0); HEMOGLOBIN 11.4 g/dL (12.0-15.5); LYMPH # 1.3 x10^3/uL (1.0-4.8); LYMPH % 24 % (24-48); MEAN CORPUSCULAR HEMOGLOBIN 37 pg (25-35); MEAN CORPUSCULAR HGB CONC 34 g/dL (31-37); MEAN CORPUSCULAR VOLUME 110 fL (79-100); MONO # 0.8 x10^3/uL (0.0-1.1); MONO % 15 % (0-9); NEUT # 3.1 x10^3/uL (1.8-7.7); NEUT % 59 % (31-73); PLATELET COUNT 184 x10^3/uL (140-400); RED BLOOD COUNT 3.05 x10^6/uL (3.50-5.40); WHITE BLOOD COUNT 5.2 x10^3/uL (4.0-11.0)
--- NOTE | 2021-01-21 08:38 | PDOC ---
Infectious Disease Note Subjective: Subjective Patient feels better Pain is improving Vital Signs: Vital Signs Vital Signs Date Time Temp Pulse Resp B/P (MAP) Pulse Ox O2 Delivery O2 Flow Rate FiO2 01/21/21 07:00 97.8 101 22 143/92 (109) 97 Nasal Cannula 3.0 97.8 Physical Exam: PHYSICAL EXAM General alert awake female lying in bed comfortably no acute distress HEENT normocephalic atraumatic poor dentition no thrush oral mucosa dry Neck supple no JVD Lungs clear anteriorly no wheezing Heart S1-S2 no gallops murmurs Abdomen soft nondistended bowel sounds present nontender Extremities no edema or 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 Labs: Lab Laboratory Tests Test 01/20/21 18:40 01/21/21 05:45 Sodium Level 135 mmol/L (136-145) Potassium Level 2.8 mmol/L (3.5-5.1) Chloride Level 99 mmol/L (98-107) Carbon Dioxide Level 27 mmol/L (21-32) Anion Gap 9 (6-14) Blood Urea Nitrogen 3 mg/dL (7-20) Creatinine 0.7 mg/dL (0.6-1.0) Estimated GFR (Cockcroft-Gault) 86.6 Glucose Level 134 mg/dL (70-99) Calcium Level 7.4 mg/dL (8.5-10.1) White Blood Count 5.2 x10^3/uL (4.0-11.0) Red Blood Count 3.05 x10^6/uL (3.50-5.40) Hemoglobin 11.4 g/dL (12.0-15.5) Hematocrit 33.4 % (36.0-47.0) Mean Corpuscular Volume 110 fL (79-100) Mean Corpuscular Hemoglobin 37 pg (25-35) Mean Corpuscular Hemoglobin Concent 34 g/dL (31-37) Red Cell Distribution Width 18.0 % (11.5-14.5) Platelet Count 184 x10^3/uL (140-400) Neutrophils (%) (Auto) 59 % (31-73) Lymphocytes (%) (Auto) 24 % (24-48) Monocytes (%) (Auto) 15 % (0-9) Eosinophils (%) (Auto) 1 % (0-3) Basophils (%) (Auto) 0 % (0-3) Neutrophils # (Auto) 3.1 x10^3/uL (1.8-7.7) Lymphocytes # (Auto) 1.3 x10^3/uL (1.0-4.8) Monocytes # (Auto) 0.8 x10^3/uL (0.0-1.1) Eosinophils # (Auto) 0.1 x10^3/uL (0.0-0.7) Basophils # (Auto) 0.0 x10^3/uL (0.0-0.2) Objective: Assessment: Encephalopathy improving Seizure-like activity on presentation at [facility], no further seizure activity reported here Sepsis now resolved BC neg at [facility] Leukocytosis resolved UTI UC neg at [facility] Hematuria,rhabdomyolysis Anemia and thrombocytopenia Hypokalemia and hyponatremia, FRANCESCA improving Atrial fibrillation History of fall POA History of anxiety, depression Fibromyalgia Hyperlipidemia CAD Tobaccoism Heavy EtOH dependence Right distal clavicular fracture and widening of the coracoclavicular space which could be associated ligamentous injury Plan: Plan of Care Continue Rocephin Discontinue left IJ bc remain negative Follow-up labs and cultures Maintain aspiration precaution Supportive care Pain control per primary D/W OZIEL COLE MD Jan 21, 2021 08:38
[2021-01-21 08:43] LABS: CALCIUM 7.5 mg/dL (8.5-10.1); CREATININE 0.6 mg/dL (0.6-1.0); GFR 103.4; MAGNESIUM 1.5 mg/dL (1.8-2.4); PHOSPHORUS 1.6 mg/dL (2.6-4.7); POTASSIUM 3.5 mmol/L (3.5-5.1)
[2021-01-21 08:50] LABS: ALBUMIN 2.2 g/dL (3.4-5.0); ALBUMIN/GLOBULIN RATIO 0.6 (1.0-1.7); CALCIUM 7.5 mg/dL (8.5-10.1); CREATININE 0.6 mg/dL (0.6-1.0); GFR 103.4; POTASSIUM 3.3 mmol/L (3.5-5.1); TOTAL BILIRUBIN 0.8 mg/dL (0.2-1.0)
[2021-01-21] MEDS: MULTIVIT INFUSN,ADULT 4,VIT K 10 ML, THIAMINE INJ 100 MG, FOLIC ACID INJ 1 MG in IV NOR... IV SCH (08:53)
--- NOTE | 2021-01-21 11:26 | PDOC ---
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 1126: CARDIO Progress Notes Date and Time Date of Service 01/21/21 Time of Evaluation 1145 Subjective Subjective: No Chest Pain, No shortness of breath, No Palpitations Vitals Vitals Vital Signs Date Time Temp Pulse Resp B/P (MAP) Pulse Ox O2 Delivery O2 Flow Rate FiO2 01/21/21 10:01 97.9 99 22 108/72 (84) 98 Nasal Cannula 3.0 97.9 Weight Weight [ ] Input and Output Intake and Output Intake and Output 01/21/21 07:00 Intake Total 2755 ml Output Total 2875 ml Balance -120 ml Intake Oral 1680 ml IV Total 1075 ml Output Urine Total 2875 ml # Bowel Movements 2 Laboratory Labs Laboratory Tests Test 01/20/21 18:40 01/21/21 05:45 Sodium Level 135 mmol/L (136-145) 136 mmol/L (136-145) Potassium Level 2.8 mmol/L (3.5-5.1) 3.3 mmol/L (3.5-5.1) Chloride Level 99 mmol/L (98-107) 103 mmol/L (98-107) Carbon Dioxide Level 27 mmol/L (21-32) 23 mmol/L (21-32) Anion Gap 9 (6-14) 10 (6-14) Blood Urea Nitrogen 3 mg/dL (7-20) 3 mg/dL (7-20) Creatinine 0.7 mg/dL (0.6-1.0) 0.6 mg/dL (0.6-1.0) Estimated GFR (Cockcroft-Gault) 86.6 103.4 Glucose Level 134 mg/dL (70-99) 96 mg/dL (70-99) Calcium Level 7.4 mg/dL (8.5-10.1) 7.5 mg/dL (8.5-10.1) White Blood Count 5.2 x10^3/uL (4.0-11.0) Red Blood Count 3.05 x10^6/uL (3.50-5.40) Hemoglobin 11.4 g/dL (12.0-15.5) Hematocrit 33.4 % (36.0-47.0) Mean Corpuscular Volume 110 fL (79-100) Mean Corpuscular Hemoglobin 37 pg (25-35) Mean Corpuscular Hemoglobin Concent 34 g/dL (31-37) Red Cell Distribution Width 18.0 % (11.5-14.5) Platelet Count 184 x10^3/uL (140-400) Neutrophils (%) (Auto) 59 % (31-73) Lymphocytes (%) (Auto) 24 % (24-48) Monocytes (%) (Auto) 15 % (0-9) Eosinophils (%) (Auto) 1 % (0-3) Basophils (%) (Auto) 0 % (0-3) Neutrophils # (Auto) 3.1 x10^3/uL (1.8-7.7) Lymphocytes # (Auto) 1.3 x10^3/uL (1.0-4.8) Monocytes # (Auto) 0.8 x10^3/uL (0.0-1.1) Eosinophils # (Auto) 0.1 x10^3/uL (0.0-0.7) Basophils # (Auto) 0.0 x10^3/uL (0.0-0.2) BUN/Creatinine Ratio 5 (6-20) Phosphorus Level 1.6 mg/dL (2.6-4.7) Magnesium Level 1.5 mg/dL (1.8-2.4) Total Bilirubin 0.8 mg/dL (0.2-1.0) Aspartate Amino Transf (AST/SGOT) 135 U/L (15-37) Alanine Aminotransferase (ALT/SGPT) 97 U/L (14-59) Alkaline Phosphatase 136 U/L (46-116) Total Protein 6.0 g/dL (6.4-8.2) Albumin 2.2 g/dL (3.4-5.0) Albumin/Globulin Ratio 0.6 (1.0-1.7) Review of Systems Constitutional: yes: alert, other (CONFUSED) Ears/Nose/Throat: Yes: no symptom reported Eyes: Yes: no symptom reported Pulmonary: Yes no symptom reported Cardiovascular: Yes no symptom reported Gastrointestional: Yes: no symptom reported Genitourinary: Yes: no symptom reported Musculoskeletal: Yes: no symptom reported Skin: Yes no symptom reported Psychiatric/Neurological: Yes: no symptom reported Endocrine: Yes: no symptom reported Physical Exam HEENT: Neck Supple W Full Motion Chest: Symmetric LUNGS: Other (diminished bases) Heart: RRR (SR/ST) Abdomen: Soft N/T Extremities: No Edema Neurology: alert, follow commands Assessment Assessment 1. Seizure-like activity 2. ETOH abuse 3. NSTEMI; trop peak 2.3. Cath 2017 without significant obstructive disease. Most probable type II, demand ischemia. CP free. 4. Rhabdomyolysis 5. Leukocytosis, lactic acidosis; resolved 6. PAFIB; rate controlled on Cardizem gtt 7. Hypertension 8. Hyperlipidemia; LDL 143. statin Anemia, thrombocytopenia; resolved 9. FRANCESCA, hypokalemia, hypomagnesemia; FRANCESCA resolved 10. Hypothyroidism 12. Encephalopathy 13. Fall with distal right clavicular fracture 14. Tobaccoism Recommendations Replace lytes as warranted Start oral Cardizem; titrate off Cardizem gtt ASA therapy. Monitor PLTs Poor candidate for OAC with h/o alcoholism Consider outpatient event monitor to guide therapy TSH Echo to ensure intact LV systolic function Outpatient ischemic evaluation Ongoing support Discussed/encouraged ETOH and tobacco cessation Justicifation of Admission Dx: Justifications for Admission: Justification of Admission Dx: Yes CHF: Cardiac Arrhythmias Comments: transaminitis Rhabdomyolysis CHANDNI RAMSEY MD 01/21/21 1453: CARDIO Progress Notes Plan Plan Patient seen and examined. Agree with above nurse practitioner note. Echocardiogram reviewed. Patient has moderate LV systolic dysfunction. Currently does not have any chest pain. Telemetry is unremarkable with currently the patient being noted to be in sinus rhythm Plan for outpatient event monitoring to determine atrial fibrillation burden and stress testing to determine any further need for intervention on a long-term basis. Continue aspirin 81 mg daily and follow-up on an outpatient basis NEGAR VELIZ APRN Jan 21, 2021 11:26 CHANDNI RAMSEY MD Jan 21, 2021 14:53
--- NOTE | 2021-01-21 11:40 | PDOC ---
Renal-Progress Notes Subjective Notes Notes NO NEW COMPLAINTS History of Present Illness Hx of present illness STABLE Vitals Vitals Vital Signs Date Time Temp Pulse Resp B/P (MAP) Pulse Ox O2 Delivery O2 Flow Rate FiO2 01/21/21 10:01 97.9 99 22 108/72 (84) 98 Nasal Cannula 3.0 97.9 Weight Weight [ ] I.O. Intake and Output Intake and Output 01/21/21 07:00 Intake Total 2755 ml Output Total 2875 ml Balance -120 ml Intake Oral 1680 ml IV Total 1075 ml Output Urine Total 2875 ml # Bowel Movements 2 Labs Labs Laboratory Tests Test 01/20/21 18:40 01/21/21 05:45 Sodium Level 135 mmol/L (136-145) 136 mmol/L (136-145) Potassium Level 2.8 mmol/L (3.5-5.1) 3.3 mmol/L (3.5-5.1) Chloride Level 99 mmol/L (98-107) 103 mmol/L (98-107) Carbon Dioxide Level 27 mmol/L (21-32) 23 mmol/L (21-32) Anion Gap 9 (6-14) 10 (6-14) Blood Urea Nitrogen 3 mg/dL (7-20) 3 mg/dL (7-20) Creatinine 0.7 mg/dL (0.6-1.0) 0.6 mg/dL (0.6-1.0) Estimated GFR (Cockcroft-Gault) 86.6 103.4 Glucose Level 134 mg/dL (70-99) 96 mg/dL (70-99) Calcium Level 7.4 mg/dL (8.5-10.1) 7.5 mg/dL (8.5-10.1) White Blood Count 5.2 x10^3/uL (4.0-11.0) Red Blood Count 3.05 x10^6/uL (3.50-5.40) Hemoglobin 11.4 g/dL (12.0-15.5) Hematocrit 33.4 % (36.0-47.0) Mean Corpuscular Volume 110 fL (79-100) Mean Corpuscular Hemoglobin 37 pg (25-35) Mean Corpuscular Hemoglobin Concent 34 g/dL (31-37) Red Cell Distribution Width 18.0 % (11.5-14.5) Platelet Count 184 x10^3/uL (140-400) Neutrophils (%) (Auto) 59 % (31-73) Lymphocytes (%) (Auto) 24 % (24-48) Monocytes (%) (Auto) 15 % (0-9) Eosinophils (%) (Auto) 1 % (0-3) Basophils (%) (Auto) 0 % (0-3) Neutrophils # (Auto) 3.1 x10^3/uL (1.8-7.7) Lymphocytes # (Auto) 1.3 x10^3/uL (1.0-4.8) Monocytes # (Auto) 0.8 x10^3/uL (0.0-1.1) Eosinophils # (Auto) 0.1 x10^3/uL (0.0-0.7) Basophils # (Auto) 0.0 x10^3/uL (0.0-0.2) BUN/Creatinine Ratio 5 (6-20) Phosphorus Level 1.6 mg/dL (2.6-4.7) Magnesium Level 1.5 mg/dL (1.8-2.4) Total Bilirubin 0.8 mg/dL (0.2-1.0) Aspartate Amino Transf (AST/SGOT) 135 U/L (15-37) Alanine Aminotransferase (ALT/SGPT) 97 U/L (14-59) Alkaline Phosphatase 136 U/L (46-116) Total Protein 6.0 g/dL (6.4-8.2) Albumin 2.2 g/dL (3.4-5.0) Albumin/Globulin Ratio 0.6 (1.0-1.7) Review of Systems Constitutional: yes: alert, other (CONFUSED) Ears/Nose/Throat: Yes: no symptom reported Eyes: Yes: no symptom reported Pulmonary: Yes no symptom reported Cardiovascular: Yes no symptom reported Gastrointestional: Yes: no symptom reported Genitourinary: Yes: no symptom reported Musculoskeletal: Yes: no symptom reported Skin: Yes no symptom reported Psychiatric/Neurological: Yes: no symptom reported Endocrine: Yes: no symptom reported Physical Exam General Appearance: no apparent distress Skin: warm Respiratory: decreased breath sounds Heart: S1S2 Abdomen: soft, bowel sounds present Genitourinary: bladder flat Extremities: atrophy Neurology: alert, confused Assessment Assessment IMP FRANCESCA-RESOLVED HYPOKALEMIA HYPOMAGNESEMIA HYPOPHOSPHATEMIA SEPSIS ENCEPHALOPATHY DIARRHEA UTI R CLAVICLE FRACTURE PLAN REPLACE K, PO4 AND MAG NEEDED HYDRATION WINNIE BOURNE MD Jan 21, 2021 11:40
[2021-01-21] MEDS ORDERED: SODIUM PHOSPHATE 20 MMOL in IV NORMAL SALINE 250ML 250 ML IV ONE (12:00)
[2021-01-21] MEDS ORDERED: MAGNESIUM SULFATE 2GM 50 ML IV ONE (12:00)
[2021-01-21] MEDS ORDERED: PERFLUTREN PROTEIN-A MICROSPHR 0.22 MG/ML 3 ML VIAL. IV ONE ×3 (13:45→14:30)
--- NOTE | 2021-01-21 15:18 | PDOC ---
[employer] PROGRESS NOTE Date of Service DOS: DATE: 01/21/21 TIME: 15:09 Chief Complaint Chief Complaint Acute toxic and metabolic encephalopathyimproved Seizure-like activity Sepsis now resolved with blood cultures are negative from [facility] Acute UTI FRANCESCA due to vasomotor nephropathy Rhabdomyolysis Acute electrolyte derangementhypokalemia, hyponatremia, hypomagnesemia, hypophosphatemia. Macrocytic anemia concerning for B12 deficiency History of atrial fibrillation History of hypothyroidism History of fall POA History of anxiety, depression Fibromyalgia Hyperlipidemia CAD Tobaccoism Heavy EtOH dependence Severe protein malnutrition Pending B12 levels IV electrolyte replacement Continue with IV ceftriaxone per ID PT OT PAT consult Continue to wean off of oxygen. History of Present Illness History of Present Illness 01/21/2021 No acute events overnight. Patient is more awake and conversive. Sitting next recliner and tolerating diet. No concerns from nursing. Patient's chart, labs, images were reviewed and discussed with RN 55-year-old female who originally presented to [facility] last night apparently family members witnessed a seizure activity. There was a postictal state as well. Prior to the seizure, she had been drinking. She also fell and hit her head a couple times in the kitchen. While at [facility], they noticed that her troponin was little high as well. They were concerned she could have an acute [place]. She was transferred here to our ICU where we have consulted Cardiology, Infectious Disease and Nephrology as she has renal failure. Vitals/I&O Vitals/I&O: Vital Signs Date Time Temp Pulse Resp B/P (MAP) Pulse Ox O2 Delivery O2 Flow Rate FiO2 01/21/21 14:48 97.9 94 22 136/91 (106) 97 Nasal Cannula 3.0 97.9 I & O 01/20/21 01/20/21 01/21/21 15:00 23:00 07:00 Intake Total 900 ml 1655 ml 200 ml Output Total 650 ml 2225 ml Balance 250 ml 1655 ml -2025 ml Physical Exam Physical Exam: General alert awake female lying in bed comfortably no acute distress HEENT normocephalic atraumatic poor dentition no thrush oral mucosa dry Neck supple no JVD Lungs clear anteriorly no wheezing Heart S1-S2 no gallops murmurs Abdomen soft nondistended bowel sounds present nontender Extremities no edema 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 4 extremity Derm warm dry no generalized rash, callus present over both soles Psych calm cooperative Left IJ clean General: mild distress Heart: Regular rate Abdomen: Normal bowel sounds Labs Labs: Laboratory Tests Test 01/20/21 18:40 01/21/21 05:45 Sodium Level 135 mmol/L (136-145) 136 mmol/L (136-145) Potassium Level 2.8 mmol/L (3.5-5.1) 3.3 mmol/L (3.5-5.1) Chloride Level 99 mmol/L (98-107) 103 mmol/L (98-107) Carbon Dioxide Level 27 mmol/L (21-32) 23 mmol/L (21-32) Anion Gap 9 (6-14) 10 (6-14) Blood Urea Nitrogen 3 mg/dL (7-20) 3 mg/dL (7-20) Creatinine 0.7 mg/dL (0.6-1.0) 0.6 mg/dL (0.6-1.0) Estimated GFR (Cockcroft-Gault) 86.6 103.4 Glucose Level 134 mg/dL (70-99) 96 mg/dL (70-99) Calcium Level 7.4 mg/dL (8.5-10.1) 7.5 mg/dL (8.5-10.1) White Blood Count 5.2 x10^3/uL (4.0-11.0) Red Blood Count 3.05 x10^6/uL (3.50-5.40) Hemoglobin 11.4 g/dL (12.0-15.5) Hematocrit 33.4 % (36.0-47.0) Mean Corpuscular Volume 110 fL (79-100) Mean Corpuscular Hemoglobin 37 pg (25-35) Mean Corpuscular Hemoglobin Concent 34 g/dL (31-37) Red Cell Distribution Width 18.0 % (11.5-14.5) Platelet Count 184 x10^3/uL (140-400) Neutrophils (%) (Auto) 59 % (31-73) Lymphocytes (%) (Auto) 24 % (24-48) Monocytes (%) (Auto) 15 % (0-9) Eosinophils (%) (Auto) 1 % (0-3) Basophils (%) (Auto) 0 % (0-3) Neutrophils # (Auto) 3.1 x10^3/uL (1.8-7.7) Lymphocytes # (Auto) 1.3 x10^3/uL (1.0-4.8) Monocytes # (Auto) 0.8 x10^3/uL (0.0-1.1) Eosinophils # (Auto) 0.1 x10^3/uL (0.0-0.7) Basophils # (Auto) 0.0 x10^3/uL (0.0-0.2) BUN/Creatinine Ratio 5 (6-20) Phosphorus Level 1.6 mg/dL (2.6-4.7) Magnesium Level 1.5 mg/dL (1.8-2.4) Total Bilirubin 0.8 mg/dL (0.2-1.0) Aspartate Amino Transf (AST/SGOT) 135 U/L (15-37) Alanine Aminotransferase (ALT/SGPT) 97 U/L (14-59) Alkaline Phosphatase 136 U/L (46-116) Total Protein 6.0 g/dL (6.4-8.2) Albumin 2.2 g/dL (3.4-5.0) Albumin/Globulin Ratio 0.6 (1.0-1.7) Thyroid Stimulating Hormone (TSH) 2.863 uIU/mL (0.358-3.74) Comment Review of Relevant I have reviewed the following items renny (where applicable) has been applied. Medications: Current Medications Medications (Trade) Dose Ordered Sig/Josué Route PRN Reason Start Time Stop Time Status Last Admin Dose Admin Magnesium Oxide (Magnesium Oxide) 400 mg DAILY PO 01/21/21 09:00 01/21/21 08:10 Ceftriaxone Sodium (Rocephin) 1 gm Q24H IVP 01/20/21 21:00 01/20/21 20:39 Potassium Chloride/Water 100 ml @ 100 mls/hr Q1H IV 01/20/21 20:00 01/20/21 23:59 DC 01/21/21 02:10 Potassium Chloride (Klor-Con) 40 meq 1X ONCE PO 01/20/21 19:30 01/20/21 19:31 DC 01/20/21 20:48 Sodium Phosphate 20 mmol/Sodium Chloride 256.6667 ml @ 64.167 m... 1X ONCE IV 01/21/21 12:00 01/21/21 15:59 01/21/21 12:29 Magnesium Sulfate 50 ml @ 25 mls/hr 1X ONCE IV 01/21/21 12:00 01/21/21 13:59 DC 01/21/21 12:26 Diltiazem HCl (Cardizem 24hr Cd) 180 mg DAILY PO 01/21/21 11:45 01/21/21 12:35 Justifications for Admission Other Justification TESHA COLLIER MD Jan 21, 2021 15:17
--- NOTE | 2021-01-21 16:58 | CARD ---
MR#: [id number] Date of Study: 01/21/2021 Ordering Physician: NEGAR VELIZ, Referring Physician: NEGAR VELIZ, Tech: Chelo Carlin [facility] APPROVED REPORT EXAM: Two-dimensional and M-mode echocardiogram with Doppler and color Doppler. Other Information Quality : Technically LimitedHR: 100bpm Rhythm : TachycardiaAtrial Fibrillation INDICATION COPD Echo Enhancing Agent Indication: Endocardial border delineation Agent/Amount Used: Optison 2mL 2D DIMENSIONS RVDd3.0 (2.9-3.5cm)Left Atrium(2D)3.6 (1.6-4.0cm) IVSd1.0 (0.7-1.1cm)Aortic Root(2D)3.0 (2.0-3.7cm) LVDd4.2 (3.9-5.9cm)LVOT Diameter2.0 (1.8-2.4cm) PWd0.9 (0.7-1.1cm)LVDs3.2 (2.5-4.0cm) FS (%) 24.3 %SV38.7 ml LVEF(%)48.6 (>50%) Aortic Valve AoV Peak Everette.93.8cm/sAoV VTI16.9cm AO Peak GR.3.5mmHgLVOT VTI 15.29cm AO Mean GR.2mmHg TDI Lateral E' P. V5.54cm/sMedial E' P. V6.52cm/s LEFT VENTRICLE The left ventricle is normal size. There is normal left ventricular wall thickness. Hypokinesis of mi d to distal anterior and anteroseptal boogie and the apical wall. The ejection fraction is estimated a t 40%. RIGHT VENTRICLE The right ventricle is normal size. There is normal right ventricular wall thickness. The right ventr icular systolic function is normal. ATRIA The left atrium is mildly dilated. The right atrium size is normal. The interatrial septum is intact with no evidence for an atrial septal defect or patent foramen ovale as noted on 2-D or Doppler imagi ng. AORTIC VALVE The aortic valve is normal in structure and function. Doppler and Color Flow revealed no significant aortic regurgitation. There is no significant aortic valvular stenosis. MITRAL VALVE The mitral valve is normal in structure and function. There is no evidence of mitral valve prolapse. There is no mitral valve stenosis. Doppler and Color-flow revealed mild mitral regurgitation. TRICUSPID VALVE The tricuspid valve is normal in structure and function. Doppler and Color Flow revealed no tricuspid valve regurgitation noted. There is no tricuspid valve stenosis. PULMONIC VALVE The pulmonary valve is normal in structure and function. Doppler and Color Flow revealed no pulmonic valvular regurgitation. GREAT VESSELS The aortic root is normal in size. The ascending aorta is normal in size. The IVC is normal in size a nd collapses >50% with inspiration. PERICARDIAL EFFUSION There is no evidence of significant pericardial effusion. Critical Notification Critical Value: No <Conclusion> Technically difficult study. Optison echo contrast used. Hypokinesis of mid to distal anterior and anteroseptal boogie and the apical wall. The ejection fraction is estimated at 40%. Mild mitral regurgitation. There is no evidence of significant pericardial effusion. Signed by : Daniel Curiel, Electronically Approved : 01/21/2021 16:57:33
[2021-01-21] MEDS ORDERED: DIGOXIN IV 500 MCG/2 ML AMPUL. IV ONE (20:15)
[2021-01-21] MEDS: LACTOBACILLUS RHAMNOSUS GG 1 CAPSULE. PO SCH (20:50)
[2021-01-21] MEDS: ATORVASTATIN CALCIUM 20 MG TABLET PO SCH (20:50)
[2021-01-21] MEDS: cefTRIAXone IV Push 1 GM VIAL. IVP SCH (20:51)
[2021-01-22] VITALS (7 sets, daily range): BP systolic 117–159; BP diastolic 68–103
[2021-01-22] MEDS: IV NORMAL SALINE 1000ML BAG 1,000 ML IV SCH ×2 (06:04→21:38)
[2021-01-22 06:11] LABS: BASO # 0.1 x10^3/uL (0.0-0.2); BASO % 1 % (0-3); EOS # 0.1 x10^3/uL (0.0-0.7); EOS % 1 % (0-3); HEMATOCRIT 31.6 % (36.0-47.0); HEMOGLOBIN 10.9 g/dL (12.0-15.5); LYMPH # 1.4 x10^3/uL (1.0-4.8); LYMPH % 20 % (24-48); MEAN CORPUSCULAR HEMOGLOBIN 37 pg (25-35); MEAN CORPUSCULAR HGB CONC 34 g/dL (31-37); MEAN CORPUSCULAR VOLUME 108 fL (79-100); MONO # 0.9 x10^3/uL (0.0-1.1); MONO % 13 % (0-9); NEUT # 4.4 x10^3/uL (1.8-7.7); NEUT % 65 % (31-73); PLATELET COUNT 232 x10^3/uL (140-400); RED BLOOD COUNT 2.92 x10^6/uL (3.50-5.40); RED CELL DISTRIBUTION WIDTH 17.7 % (11.5-14.5); WHITE BLOOD COUNT 6.8 x10^3/uL (4.0-11.0)
[2021-01-22 06:20] LABS: CALCIUM 7.6 mg/dL (8.5-10.1); CREATININE 0.5 mg/dL (0.6-1.0); GFR 127.6; MAGNESIUM 1.7 mg/dL (1.8-2.4); PHOSPHORUS 3.3 mg/dL (2.6-4.7)
[2021-01-22 06:23] LABS: POTASSIUM 2.7 mmol/L (3.5-5.1)
[2021-01-22] MEDS ORDERED: POTASSIUM CHLORIDE 20 MEQ TABLET.ER. PO ONE ×2 (07:30→13:00)
--- NOTE | 2021-01-22 07:50 | PDOC ---
Infectious Disease Note Subjective: Subjective Patient feels better Still has right shoulder pain Denies fever, nausea, vomiting, diarrhea, SOA Vital Signs: Vital Signs Vital Signs Date Time Temp Pulse Resp B/P (MAP) Pulse Ox O2 Delivery O2 Flow Rate FiO2 01/22/21 02:35 98.3 99 20 155/96 (115) 98 Room Air 98.3 01/21/21 19:58 3.0 Physical Exam: PHYSICAL EXAM General alert awake female in no acute distress HEENT normocephalic atraumatic poor dentition no thrush oral mucosa dry Neck supple no JVD Lungs clear anteriorly no wheezing Heart S1-S2 no gallops murmurs Abdomen soft nondistended bowel sounds present nontender Extremities no edema 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 Labs: Lab Laboratory Tests Test 01/22/21 05:50 White Blood Count 6.8 x10^3/uL (4.0-11.0) Red Blood Count 2.92 x10^6/uL (3.50-5.40) Hemoglobin 10.9 g/dL (12.0-15.5) Hematocrit 31.6 % (36.0-47.0) Mean Corpuscular Volume 108 fL (79-100) Mean Corpuscular Hemoglobin 37 pg (25-35) Mean Corpuscular Hemoglobin Concent 34 g/dL (31-37) Red Cell Distribution Width 17.7 % (11.5-14.5) Platelet Count 232 x10^3/uL (140-400) Neutrophils (%) (Auto) 65 % (31-73) Lymphocytes (%) (Auto) 20 % (24-48) Monocytes (%) (Auto) 13 % (0-9) Eosinophils (%) (Auto) 1 % (0-3) Basophils (%) (Auto) 1 % (0-3) Neutrophils # (Auto) 4.4 x10^3/uL (1.8-7.7) Lymphocytes # (Auto) 1.4 x10^3/uL (1.0-4.8) Monocytes # (Auto) 0.9 x10^3/uL (0.0-1.1) Eosinophils # (Auto) 0.1 x10^3/uL (0.0-0.7) Basophils # (Auto) 0.1 x10^3/uL (0.0-0.2) Sodium Level 139 mmol/L (136-145) Potassium Level 2.7 mmol/L (3.5-5.1) Chloride Level 102 mmol/L (98-107) Carbon Dioxide Level 24 mmol/L (21-32) Anion Gap 13 (6-14) Blood Urea Nitrogen 3 mg/dL (7-20) Creatinine 0.5 mg/dL (0.6-1.0) Estimated GFR (Cockcroft-Gault) 127.6 Glucose Level 93 mg/dL (70-99) Calcium Level 7.6 mg/dL (8.5-10.1) Phosphorus Level 3.3 mg/dL (2.6-4.7) Magnesium Level 1.7 mg/dL (1.8-2.4) Objective: Assessment: Encephalopathy improving Seizure-like activity on presentation at [facility], no further seizure activity reported here Sepsis now resolved BC neg at [facility] UC neg Leukocytosis resolved Pyuria UC neg at [facility] from 01/17 Hematuria,rhabdomyolysis Anemia and thrombocytopenia Hypokalemia and hyponatremia, FRANCESCA improving Atrial fibrillation History of fall POA History of anxiety, depression Fibromyalgia Hyperlipidemia CAD Tobaccoism Heavy EtOH dependence,abn lfts Right distal clavicular fracture and widening of the coracoclavicular space which could be associated ligamentous injury Plan: Plan of Care Continue Rocephin 01/17 Discontinue left IJ bc and uc remain negative from [facility] Follow-up labs and cultures Maintain aspiration precaution Supportive care D/W OZIEL COLE MD Jan 22, 2021 07:50
[2021-01-22] MEDS: FAMOTIDINE 20 MG/2 ML VIAL IVP SCH ×2 (08:44→21:39)
[2021-01-22] MEDS: NICOTINE 21MG PATCH. TD SCH (08:44)
[2021-01-22] MEDS: POTASSIUM & SODIUM PHOSPHATES PACKET. PO SCH (08:45)
[2021-01-22] MEDS: LACTOBACILLUS RHAMNOSUS GG 1 CAPSULE. PO SCH ×2 (08:45→21:39)
[2021-01-22] MEDS: MAGNESIUM OXIDE 400 MG TABLET PO SCH (08:45)
[2021-01-22] MEDS: POTASSIUM CHLORIDE 20MEQ 100 ML IV SCH ×2 (08:46→11:50)
[2021-01-22] MEDS: ASPIRIN ENTERIC COATED 81 MG TABLET.DR. PO SCH (08:51)
[2021-01-22] MEDS: MULTIVIT INFUSN,ADULT 4,VIT K 10 ML, THIAMINE INJ 100 MG, FOLIC ACID INJ 1 MG in IV NOR... IV SCH (09:28)
[2021-01-22] MEDS ORDERED: MAGNESIUM OXIDE 400 MG TABLET PO ONE (11:30)
--- NOTE | 2021-01-22 11:46 | PDOC ---
[employer] PROGRESS NOTE Date of Service DOS: DATE: 01/22/21 TIME: 11:44 Chief Complaint Chief Complaint Acute toxic and metabolic encephalopathyimproved Seizure-like activity Sepsis now resolved with blood cultures are negative from [facility] Acute UTI FRANCESCA due to vasomotor nephropathy Rhabdomyolysis Acute electrolyte derangementhypokalemia, hyponatremia, hypomagnesemia, hypophosphatemia. Macrocytic anemia concerning for B12 deficiency History of atrial fibrillation History of hypothyroidism History of fall POA History of anxiety, depression Fibromyalgia Hyperlipidemia CAD Tobaccoism Heavy EtOH dependence Severe protein malnutrition Pending B12 levels IV electrolyte replacement Continue with IV ceftriaxone per ID PT OT PAT consult Continue to wean off of oxygen. History of Present Illness History of Present Illness 01/22/2021 No acute events overnight. Afebrile. Right IJ and antibiotics were removed. Continues to need rehab. Pending recommendations from physical therapy for SNF versus rehab. Patient's chart, labs, images were reviewed and discussed with RN 01/21/2021 No acute events overnight. Patient is more awake and conversive. Sitting next recliner and tolerating diet. No concerns from nursing. Patient's chart, labs, images were reviewed and discussed with RN 55-year-old female who originally presented to [facility] last night apparently family members witnessed a seizure activity. There was a postictal state as well. Prior to the seizure, she had been drinking. She also fell and hit her head a couple times in the kitchen. While at [facility], they noticed that her troponin was little high as well. They were concerned she could have an acute [place]. She was transferred here to our ICU where we have consulted Cardiology, Infectious Disease and Nephrology as she has renal failure. Vitals/I&O Vitals/I&O: Vital Signs Date Time Temp Pulse Resp B/P (MAP) Pulse Ox O2 Delivery O2 Flow Rate FiO2 01/22/21 11:00 97.9 103 20 117/75 (89) 98 Room Air 97.9 01/21/21 19:58 3.0 I & O 01/21/21 01/21/21 01/22/21 15:00 23:00 07:00 Intake Total 350 ml 350 ml 900 ml Output Total 550 ml 1150 ml 201 ml Balance -200 ml -800 ml 699 ml Physical Exam Physical Exam: General alert awake female in no acute distress HEENT normocephalic atraumatic poor dentition no thrush oral mucosa dry Neck supple no JVD Lungs clear anteriorly no wheezing Heart S1-S2 no gallops murmurs Abdomen soft nondistended bowel sounds present nontender Extremities no edema or cyanosis 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 , moves all 4 extremities Derm warm dry no generalized rash, callus present over both soles Psych calm cooperative MSK DJD changes present, right shoulder dislocation Left IJ clean General: mild distress Heart: Regular rate Abdomen: Normal bowel sounds Labs Labs: Laboratory Tests Test 01/22/21 05:50 White Blood Count 6.8 x10^3/uL (4.0-11.0) Red Blood Count 2.92 x10^6/uL (3.50-5.40) Hemoglobin 10.9 g/dL (12.0-15.5) Hematocrit 31.6 % (36.0-47.0) Mean Corpuscular Volume 108 fL (79-100) Mean Corpuscular Hemoglobin 37 pg (25-35) Mean Corpuscular Hemoglobin Concent 34 g/dL (31-37) Red Cell Distribution Width 17.7 % (11.5-14.5) Platelet Count 232 x10^3/uL (140-400) Neutrophils (%) (Auto) 65 % (31-73) Lymphocytes (%) (Auto) 20 % (24-48) Monocytes (%) (Auto) 13 % (0-9) Eosinophils (%) (Auto) 1 % (0-3) Basophils (%) (Auto) 1 % (0-3) Neutrophils # (Auto) 4.4 x10^3/uL (1.8-7.7) Lymphocytes # (Auto) 1.4 x10^3/uL (1.0-4.8) Monocytes # (Auto) 0.9 x10^3/uL (0.0-1.1) Eosinophils # (Auto) 0.1 x10^3/uL (0.0-0.7) Basophils # (Auto) 0.1 x10^3/uL (0.0-0.2) Sodium Level 139 mmol/L (136-145) Potassium Level 2.7 mmol/L (3.5-5.1) Chloride Level 102 mmol/L (98-107) Carbon Dioxide Level 24 mmol/L (21-32) Anion Gap 13 (6-14) Blood Urea Nitrogen 3 mg/dL (7-20) Creatinine 0.5 mg/dL (0.6-1.0) Estimated GFR (Cockcroft-Gault) 127.6 Glucose Level 93 mg/dL (70-99) Calcium Level 7.6 mg/dL (8.5-10.1) Phosphorus Level 3.3 mg/dL (2.6-4.7) Magnesium Level 1.7 mg/dL (1.8-2.4) Comment Review of Relevant I have reviewed the following items renny (where applicable) has been applied. Medications: Current Medications Medications (Trade) Dose Ordered Sig/Josué Route PRN Reason Start Time Stop Time Status Last Admin Dose Admin Sodium Phosphate 20 mmol/Sodium Chloride 256.6667 ml @ 64.167 m... 1X ONCE IV 01/21/21 12:00 01/21/21 15:59 DC 01/21/21 12:29 Magnesium Sulfate 50 ml @ 25 mls/hr 1X ONCE IV 01/21/21 12:00 01/21/21 13:59 DC 01/21/21 12:26 Diltiazem HCl (Cardizem 24hr Cd) 180 mg DAILY PO 01/21/21 11:45 01/22/21 08:53 Lactobacillus Rhamnosus (Culturelle) 1 cap BID PO 01/21/21 21:00 01/22/21 08:45 Aspirin (Ecotrin) 81 mg DAILYWBKFT PO 01/22/21 08:00 01/22/21 08:51 Digoxin (Lanoxin) 250 mcg 1X ONCE IV 01/21/21 20:15 01/21/21 20:16 DC 01/21/21 20:08 Potassium Chloride (Klor-Con) 40 meq BIDACBL ONCE PO 01/22/21 07:30 01/22/21 07:32 DC 01/22/21 08:44 Potassium Chloride/Water 100 ml @ 100 mls/hr Q1H IV 01/22/21 06:45 01/22/21 08:44 DC 01/22/21 08:46 Justifications for Admission Other Justification TESHA COLLIER MD Jan 22, 2021 11:46
--- NOTE | 2021-01-22 13:09 | PDOC ---
Renal-Progress Notes Subjective Notes Notes NO NEW COMPLAINTS History of Present Illness Hx of present illness STABLE Vitals Vitals Vital Signs Date Time Temp Pulse Resp B/P (MAP) Pulse Ox O2 Delivery O2 Flow Rate FiO2 01/22/21 11:00 97.9 103 20 117/75 (89) 98 Room Air 97.9 01/21/21 19:58 3.0 Weight Weight [ ] I.O. Intake and Output Intake and Output 01/22/21 07:00 Intake Total 1600 ml Output Total 1901 ml Balance -301 ml Intake Oral 700 ml IV Total 900 ml Output Urine Total 1900 ml Stool Total 1 ml # Voids 1 # Bowel Movements 4 Labs Labs Laboratory Tests Test 01/22/21 05:50 White Blood Count 6.8 x10^3/uL (4.0-11.0) Red Blood Count 2.92 x10^6/uL (3.50-5.40) Hemoglobin 10.9 g/dL (12.0-15.5) Hematocrit 31.6 % (36.0-47.0) Mean Corpuscular Volume 108 fL (79-100) Mean Corpuscular Hemoglobin 37 pg (25-35) Mean Corpuscular Hemoglobin Concent 34 g/dL (31-37) Red Cell Distribution Width 17.7 % (11.5-14.5) Platelet Count 232 x10^3/uL (140-400) Neutrophils (%) (Auto) 65 % (31-73) Lymphocytes (%) (Auto) 20 % (24-48) Monocytes (%) (Auto) 13 % (0-9) Eosinophils (%) (Auto) 1 % (0-3) Basophils (%) (Auto) 1 % (0-3) Neutrophils # (Auto) 4.4 x10^3/uL (1.8-7.7) Lymphocytes # (Auto) 1.4 x10^3/uL (1.0-4.8) Monocytes # (Auto) 0.9 x10^3/uL (0.0-1.1) Eosinophils # (Auto) 0.1 x10^3/uL (0.0-0.7) Basophils # (Auto) 0.1 x10^3/uL (0.0-0.2) Sodium Level 139 mmol/L (136-145) Potassium Level 2.7 mmol/L (3.5-5.1) Chloride Level 102 mmol/L (98-107) Carbon Dioxide Level 24 mmol/L (21-32) Anion Gap 13 (6-14) Blood Urea Nitrogen 3 mg/dL (7-20) Creatinine 0.5 mg/dL (0.6-1.0) Estimated GFR (Cockcroft-Gault) 127.6 Glucose Level 93 mg/dL (70-99) Calcium Level 7.6 mg/dL (8.5-10.1) Phosphorus Level 3.3 mg/dL (2.6-4.7) Magnesium Level 1.7 mg/dL (1.8-2.4) Review of Systems Constitutional: yes: alert, other (CONFUSED) Ears/Nose/Throat: Yes: no symptom reported Eyes: Yes: no symptom reported Pulmonary: Yes no symptom reported Cardiovascular: Yes no symptom reported Gastrointestional: Yes: no symptom reported Genitourinary: Yes: no symptom reported Musculoskeletal: Yes: no symptom reported Skin: Yes no symptom reported Psychiatric/Neurological: Yes: no symptom reported Endocrine: Yes: no symptom reported Physical Exam General Appearance: no apparent distress Skin: warm Respiratory: decreased breath sounds Heart: S1S2 Abdomen: soft, bowel sounds present Genitourinary: bladder flat Extremities: atrophy Neurology: alert, follow commands Assessment Assessment IMP FRANCESCA-RESOLVED HYPOKALEMIA HYPOMAGNESEMIA HYPOPHOSPHATEMIA SEPSIS ENCEPHALOPATHY DIARRHEA UTI R CLAVICLE FRACTURE PLAN REPLACE K, PO4 AND MAG NEEDED CONTINUES TO HAVE LARGE ELECTROLYTE DEFICITS PLACEMENT PENDING HYDRATION WINNIE BOURNE MD Jan 22, 2021 13:09
--- NOTE | 2021-01-22 13:43 | PDOC ---
SARAH CANNON WIRE SAW OPERATOR 01/22/21 1343: CARDIO Progress Notes Date and Time Date of Service 01/22/2021 Time of Evaluation 1200 Subjective Subjective: No Chest Pain, No shortness of breath, No Palpitations Vitals Vitals Vital Signs Date Time Temp Pulse Resp B/P (MAP) Pulse Ox O2 Delivery O2 Flow Rate FiO2 01/22/21 11:00 97.9 103 20 117/75 (89) 98 Room Air 97.9 01/21/21 19:58 3.0 Weight Weight [ ] Input and Output Intake and Output Intake and Output 01/22/21 07:00 Intake Total 1600 ml Output Total 1901 ml Balance -301 ml Intake Oral 700 ml IV Total 900 ml Output Urine Total 1900 ml Stool Total 1 ml # Voids 1 # Bowel Movements 4 Laboratory Labs Laboratory Tests Test 01/22/21 05:50 White Blood Count 6.8 x10^3/uL (4.0-11.0) Red Blood Count 2.92 x10^6/uL (3.50-5.40) Hemoglobin 10.9 g/dL (12.0-15.5) Hematocrit 31.6 % (36.0-47.0) Mean Corpuscular Volume 108 fL (79-100) Mean Corpuscular Hemoglobin 37 pg (25-35) Mean Corpuscular Hemoglobin Concent 34 g/dL (31-37) Red Cell Distribution Width 17.7 % (11.5-14.5) Platelet Count 232 x10^3/uL (140-400) Neutrophils (%) (Auto) 65 % (31-73) Lymphocytes (%) (Auto) 20 % (24-48) Monocytes (%) (Auto) 13 % (0-9) Eosinophils (%) (Auto) 1 % (0-3) Basophils (%) (Auto) 1 % (0-3) Neutrophils # (Auto) 4.4 x10^3/uL (1.8-7.7) Lymphocytes # (Auto) 1.4 x10^3/uL (1.0-4.8) Monocytes # (Auto) 0.9 x10^3/uL (0.0-1.1) Eosinophils # (Auto) 0.1 x10^3/uL (0.0-0.7) Basophils # (Auto) 0.1 x10^3/uL (0.0-0.2) Sodium Level 139 mmol/L (136-145) Potassium Level 2.7 mmol/L (3.5-5.1) Chloride Level 102 mmol/L (98-107) Carbon Dioxide Level 24 mmol/L (21-32) Anion Gap 13 (6-14) Blood Urea Nitrogen 3 mg/dL (7-20) Creatinine 0.5 mg/dL (0.6-1.0) Estimated GFR (Cockcroft-Gault) 127.6 Glucose Level 93 mg/dL (70-99) Calcium Level 7.6 mg/dL (8.5-10.1) Phosphorus Level 3.3 mg/dL (2.6-4.7) Magnesium Level 1.7 mg/dL (1.8-2.4) Review of Systems Constitutional: yes: alert, other (CONFUSED) Ears/Nose/Throat: Yes: no symptom reported Eyes: Yes: no symptom reported Pulmonary: Yes no symptom reported Cardiovascular: Yes no symptom reported Gastrointestional: Yes: no symptom reported Genitourinary: Yes: no symptom reported Musculoskeletal: Yes: no symptom reported Skin: Yes no symptom reported Psychiatric/Neurological: Yes: no symptom reported Endocrine: Yes: no symptom reported Physical Exam HEENT: Neck Supple W Full Motion Chest: Symmetric LUNGS: Other (diminished bases) Heart: RRR (SR/ST) Abdomen: Soft N/T Extremities: No Edema Neurology: alert, oriented, follow commands Assessment Assessment 1. Seizure-like activity: neurology following 2. ETOH abuse: 6 beers daily with at times 1/2 bottle of whiskey (used last we k) 3. NSTEMI; trop peak 2.3, multifactorial, possibly type 2 4. NICM: LHC revealed no significant CAD in 2017 [facility]. EF at 40% with hypokinesis of mid to distal anterior and anteroseptal boogie and the apical wall, same as before. Compensated 5. Rhabdomyolysis 6. Leukocytosis, lactic acidosis; resolved 7. PAFIB: likely induced by metabolic issues associated with heavy ETOH use. presently in SR 8. Hypertension: controlled 9. Hyperlipidemia 10. Possible liver disease induced by ETOH 11. FRANCESCA: resolved 12. Hypothyroidism 13. Metabolic Encephalopathy: resolved 14. Traumatic fall with distal right clavicular fracture 15. Tobaccoism 16. Noncompliance 17. Periodontal disease Recommendations 1. CIWA protocol per PCP 2. Replace K and Mg. DC cardizem and start on toprol. Continue ASA. Hold statin for now with current rhabdo and transaminitis. Resume as outpt 3. Discussed treatment compliance. Likely need ETOH detox based on the amount of consumption 4. Consider MCOT and outpt stress test if she is compliant. Encouraged to follow up. 5. Supportive care Justicifation of Admission Dx: Justifications for Admission: Justification of Admission Dx: Yes CHF: Cardiac Arrhythmias CHANDNI RAMSEY MD 01/22/21 1534: CARDIO Progress Notes Plan Plan The patient was seen and interviewed as well as examined at the bedside. The chart was reviewed. The case was discussed. Agree with the plan of care. SARAH CANNON APRN Jan 22, 2021 13:43 CHANDNI RAMSEY MD Jan 22, 2021 15:34
[2021-01-22 14:26] LABS: PROTHROMBIN TIME PATIENT 13.2 SEC (11.7-14.0)
--- NOTE | 2021-01-22 14:28 | EKG ---
[facility] [address] [place] [address] Test Date: 2021-01-22 Test Time: 14:24:44 Pat Name: PAMELA GIBSON Department: Room: 201 1 Gender: F Collection Supervisor: EDINSON : 1965 Requested By: SARAH CANNON Order Number: [id number] Reading MD: Measurements Intervals [place] Rate: 98 P: 48 DC: 174 QRS: 16 QRSD: 72 T: 180 QT: 378 QTc: 485 Interpretive Statements SINUS RHYTHM CONSIDER RIGHT VENTRICULAR HYPERTROPHY T ABNORMALITY IN ANTERIOR LEADS PROLONGED QT ABNORMAL ECG RI6.02 Compared to ECG 01/18/2021 18:39:26 Prolonged QT interval now present Possible ischemia no longer present Possible ischemia no longer present T-wave abnormality still present
[2021-01-22] MEDS: ATORVASTATIN CALCIUM 20 MG TABLET PO SCH (21:39)
[2021-01-22] MEDS: cefTRIAXone IV Push 1 GM VIAL. IVP SCH (21:40)
[2021-01-23 03:00] VITALS: BP 153/99
[2021-01-23 07:00] VITALS: BP 161/91
[2021-01-23 07:44] LABS: BASO # 0.1 x10^3/uL (0.0-0.2); BASO % 1 % (0-3); EOS # 0.1 x10^3/uL (0.0-0.7); EOS % 1 % (0-3); HEMOGLOBIN 11.3 g/dL (12.0-15.5); LYMPH # 1.8 x10^3/uL (1.0-4.8); LYMPH % 23 % (24-48); MEAN CORPUSCULAR HEMOGLOBIN 37 pg (25-35); MEAN CORPUSCULAR HGB CONC 34 g/dL (31-37); MEAN CORPUSCULAR VOLUME 109 fL (79-100); MONO % 13 % (0-9); NEUT # 4.9 x10^3/uL (1.8-7.7); NEUT % 62 % (31-73); PLATELET COUNT 328 x10^3/uL (140-400); RED BLOOD COUNT 3.02 x10^6/uL (3.50-5.40); RED CELL DISTRIBUTION WIDTH 17.4 % (11.5-14.5); WHITE BLOOD COUNT 7.9 x10^3/uL (4.0-11.0)
[2021-01-23 08:12] LABS: CALCIUM 8.4 mg/dL (8.5-10.1); CREATININE 0.6 mg/dL (0.6-1.0); GFR 103.4; MAGNESIUM 1.4 mg/dL (1.8-2.4); PHOSPHORUS 2.7 mg/dL (2.6-4.7); POTASSIUM 3.8 mmol/L (3.5-5.1)
[2021-01-23] MEDS: ASPIRIN ENTERIC COATED 81 MG TABLET.DR. PO SCH (08:24)
[2021-01-23] MEDS: NICOTINE 21MG PATCH. TD SCH (08:24)
[2021-01-23] MEDS: LACTOBACILLUS RHAMNOSUS GG 1 CAPSULE. PO SCH (08:24)
[2021-01-23] MEDS: MAGNESIUM OXIDE 400 MG TABLET PO SCH (08:25)
[2021-01-23] MEDS: POTASSIUM & SODIUM PHOSPHATES PACKET. PO SCH (08:25)
[2021-01-23] MEDS: FAMOTIDINE 20 MG/2 ML VIAL IVP SCH (08:26)
[2021-01-23] MEDS ORDERED: MULTIVITAMIN with MINERAL TABLET. PO SCH (09:00)
[2021-01-23] MEDS ORDERED: FOLIC ACID 1 MG TABLET. PO SCH (09:00)
[2021-01-23] MEDS ORDERED: MAGNESIUM SULFATE 4GM 100 ML IV ONE (09:00)
[2021-01-23] MEDS ORDERED: METOPROLOL SUCC 24HR ER 50 MG TAB.ER.24H. PO SCH (09:00)
--- NOTE | 2021-01-23 10:00 | PDOC ---
Infectious Disease Note Subjective: Subjective Patient feels better Still has right shoulder pain Denies fever, nausea, vomiting, diarrhea, SOA Vital Signs: Vital Signs Vital Signs Date Time Temp Pulse Resp B/P (MAP) Pulse Ox O2 Delivery O2 Flow Rate FiO2 01/23/21 08:26 103 161/91 01/23/21 07:00 97.9 20 98 Room Air 97.9 Physical Exam: PHYSICAL EXAM General alert awake female in no acute distress HEENT normocephalic atraumatic poor dentition no thrush oral mucosa dry Neck supple no JVD Lungs clear anteriorly no wheezing Heart S1-S2 no gallops murmurs Abdomen soft nondistended bowel sounds present nontender Extremities no edema or cyanosis [employer] alert awake , 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 Labs: Lab Laboratory Tests Test 01/22/21 14:05 01/23/21 06:50 Prothrombin Time 13.2 SEC (11.7-14.0) Prothromb Time International Ratio 1.0 (0.8-1.1) White Blood Count 7.9 x10^3/uL (4.0-11.0) Red Blood Count 3.02 x10^6/uL (3.50-5.40) Hemoglobin 11.3 g/dL (12.0-15.5) Hematocrit 33.0 % (36.0-47.0) Mean Corpuscular Volume 109 fL (79-100) Mean Corpuscular Hemoglobin 37 pg (25-35) Mean Corpuscular Hemoglobin Concent 34 g/dL (31-37) Red Cell Distribution Width 17.4 % (11.5-14.5) Platelet Count 328 x10^3/uL (140-400) Neutrophils (%) (Auto) 62 % (31-73) Lymphocytes (%) (Auto) 23 % (24-48) Monocytes (%) (Auto) 13 % (0-9) Eosinophils (%) (Auto) 1 % (0-3) Basophils (%) (Auto) 1 % (0-3) Neutrophils # (Auto) 4.9 x10^3/uL (1.8-7.7) Lymphocytes # (Auto) 1.8 x10^3/uL (1.0-4.8) Monocytes # (Auto) 1.0 x10^3/uL (0.0-1.1) Eosinophils # (Auto) 0.1 x10^3/uL (0.0-0.7) Basophils # (Auto) 0.1 x10^3/uL (0.0-0.2) Sodium Level 139 mmol/L (136-145) Potassium Level 3.8 mmol/L (3.5-5.1) Chloride Level 104 mmol/L (98-107) Carbon Dioxide Level 24 mmol/L (21-32) Anion Gap 11 (6-14) Blood Urea Nitrogen 4 mg/dL (7-20) Creatinine 0.6 mg/dL (0.6-1.0) Estimated GFR (Cockcroft-Gault) 103.4 Glucose Level 101 mg/dL (70-99) Calcium Level 8.4 mg/dL (8.5-10.1) Phosphorus Level 2.7 mg/dL (2.6-4.7) Magnesium Level 1.4 mg/dL (1.8-2.4) Objective: Assessment: Encephalopathy improving Seizure-like activity on presentation at [facility], no further seizure activity reported here Sepsis now resolved BC neg at [facility] UC neg Leukocytosis resolved Pyuria UC neg at [facility] from 01/17 Hematuria,rhabdomyolysis Anemia and thrombocytopenia Hypokalemia and hyponatremia, FRANCESCA improving Atrial fibrillation History of fall POA History of anxiety, depression Fibromyalgia Hyperlipidemia CAD Tobaccoism Heavy EtOH dependence,abn lfts Right distal clavicular fracture and widening of the coracoclavicular space which could be associated ligamentous injury Plan: Plan of Care DC Rocephin cefdinir bid Discontinue left IJ f/u bc from [facility] Follow-up labs and cultures Maintain aspiration precaution Supportive care D/W OZIEL COLE MD Jan 23, 2021 10:00
[2021-01-23 10:13] LABS: % ATYL 3 % (0-0); % BANDS 10 % (0-9); % BASOS 3 % (0-3); % LYMPHS 24 % (24-48); % MONOS 6 % (0-10); % MYELOS 1 % (0-0); % SEGS 53 % (35-66)
[2021-01-23 10:17] LABS: ANISOCYTOSIS SLIGHT; PLT ESTIMATE ADEQUATE (ADEQUATE); TOXIC GRANULATION SLIGHT
[2021-01-23] MEDS ORDERED: CALCIUM CARBONATE 500 MG TAB.CHEW PO PRN (10:30)
[2021-01-23 10:47] VITALS: BP 126/82
--- NOTE | 2021-01-23 11:46 | PDOC ---
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 1146: CARDIO Progress Notes Date and Time Date of Service 01/23/2021 Time of Evaluation 1100 Subjective Subjective: No Chest Pain, No shortness of breath, No Palpitations Vitals Vitals Vital Signs Date Time Temp Pulse Resp B/P (MAP) Pulse Ox O2 Delivery O2 Flow Rate FiO2 01/23/21 10:47 98.6 89 20 126/82 (97) 96 Room Air 98.6 Weight Weight [ ] Input and Output Intake and Output Intake and Output 01/23/21 07:00 Intake Total 2932 ml Output Total 850 ml Balance 2082 ml Intake Oral 1460 ml IV Total 1472 ml Output Urine Total 850 ml # Voids 2 # Bowel Movements 4 Laboratory Labs Laboratory Tests Test 01/22/21 14:05 01/23/21 06:50 Prothrombin Time 13.2 SEC (11.7-14.0) Prothromb Time International Ratio 1.0 (0.8-1.1) White Blood Count 7.9 x10^3/uL (4.0-11.0) Red Blood Count 3.02 x10^6/uL (3.50-5.40) Hemoglobin 11.3 g/dL (12.0-15.5) Hematocrit 33.0 % (36.0-47.0) Mean Corpuscular Volume 109 fL (79-100) Mean Corpuscular Hemoglobin 37 pg (25-35) Mean Corpuscular Hemoglobin Concent 34 g/dL (31-37) Red Cell Distribution Width 17.4 % (11.5-14.5) Platelet Count 328 x10^3/uL (140-400) Neutrophils (%) (Auto) 62 % (31-73) Lymphocytes (%) (Auto) 23 % (24-48) Monocytes (%) (Auto) 13 % (0-9) Eosinophils (%) (Auto) 1 % (0-3) Basophils (%) (Auto) 1 % (0-3) Neutrophils # (Auto) 4.9 x10^3/uL (1.8-7.7) Lymphocytes # (Auto) 1.8 x10^3/uL (1.0-4.8) Monocytes # (Auto) 1.0 x10^3/uL (0.0-1.1) Eosinophils # (Auto) 0.1 x10^3/uL (0.0-0.7) Basophils # (Auto) 0.1 x10^3/uL (0.0-0.2) Segmented Neutrophils % 53 % (35-66) Band Neutrophils % 10 % (0-9) Lymphocytes % 24 % (24-48) Atypical Lymphocytes % (Manual) 3 % (0-0) Monocytes % 6 % (0-10) Basophils % 3 % (0-3) Myelocytes % 1 % (0-0) Toxic Granulation Slight Platelet Estimate Adequate (ADEQUATE) Anisocytosis Slight Macrocytosis Slight Sodium Level 139 mmol/L (136-145) Potassium Level 3.8 mmol/L (3.5-5.1) Chloride Level 104 mmol/L (98-107) Carbon Dioxide Level 24 mmol/L (21-32) Anion Gap 11 (6-14) Blood Urea Nitrogen 4 mg/dL (7-20) Creatinine 0.6 mg/dL (0.6-1.0) Estimated GFR (Cockcroft-Gault) 103.4 Glucose Level 101 mg/dL (70-99) Calcium Level 8.4 mg/dL (8.5-10.1) Phosphorus Level 2.7 mg/dL (2.6-4.7) Magnesium Level 1.4 mg/dL (1.8-2.4) Review of Systems Constitutional: yes: alert, other (CONFUSED) Ears/Nose/Throat: Yes: no symptom reported Eyes: Yes: no symptom reported Pulmonary: Yes no symptom reported Cardiovascular: Yes no symptom reported Gastrointestional: Yes: no symptom reported Genitourinary: Yes: no symptom reported Musculoskeletal: Yes: no symptom reported Skin: Yes no symptom reported Psychiatric/Neurological: Yes: no symptom reported Endocrine: Yes: no symptom reported Physical Exam HEENT: Neck Supple W Full Motion Chest: Symmetric LUNGS: Other (diminished bases) Heart: RRR (SR/ST) Abdomen: Soft N/T Extremities: No Edema Neurology: alert, oriented, follow commands Assessment Assessment 1. Seizure-like activity: neurology following 2. ETOH abuse: 6 beers daily with at times 1/2 bottle of whiskey (used last week) 3. NSTEMI; trop peak 2.3, multifactorial, possibly type 2 4. NICM: LHC revealed no significant CAD in 2017 LHC. EF at 40% with hypokinesis of mid to distal anterior and anteroseptal boogie and the apical wall, same as before. Compensated 5. Rhabdomyolysis 6. Leukocytosis, lactic acidosis; resolved 7. PAFIB: likely induced by metabolic issues associated with heavy ETOH use. presently in SR 8. Hypertension: controlled 9. Hyperlipidemia 10. Possible liver disease induced by ETOH 11. FRANCESCA: resolved 12. Hypothyroidism 13. Metabolic Encephalopathy: resolved 14. Traumatic fall with distal right clavicular fracture 15. Tobaccoism 16. Noncompliance 17. Periodontal disease Recommendations 1. CIWA protocol per PCP. Possible transfer to [facility], detox facility 2. Replace K and Mg. Continue toprol. Continue ASA. Replace Mg 3. Discussed treatment compliance. Secondary prevention measures 4. Consider MCOT and outpt stress test if she is compliant. Encouraged to follow up. 5. Follow up as outpt Justicifation of Admission Dx: Justifications for Admission: Justification of Admission Dx: Yes CHF: Cardiac Arrhythmias CHANDNI RAMSEY MD 01/24/21 0818: CARDIO Progress Notes Plan Plan The patient was seen and interviewed as well as examined at the bedside. The chart was reviewed. The case was discussed. Agree with the plan of care. Late entry for 01/23/21 SARAH CANNON APRN Jan 23, 2021 11:46 CHANDNI RAMSEY MD Jan 24, 2021 08:18
--- NOTE | 2021-01-23 11:48 | PDOC ---
Renal-Progress Notes Subjective Notes Notes NO NEW COMPLAINTS History of Present Illness Hx of present illness STABLE Vitals Vitals Vital Signs Date Time Temp Pulse Resp B/P (MAP) Pulse Ox O2 Delivery O2 Flow Rate FiO2 01/23/21 10:47 98.6 89 20 126/82 (97) 96 Room Air 98.6 Weight Weight [ ] I.O. Intake and Output Intake and Output 01/23/21 07:00 Intake Total 2932 ml Output Total 850 ml Balance 2082 ml Intake Oral 1460 ml IV Total 1472 ml Output Urine Total 850 ml # Voids 2 # Bowel Movements 4 Labs Labs Laboratory Tests Test 01/22/21 14:05 01/23/21 06:50 Prothrombin Time 13.2 SEC (11.7-14.0) Prothromb Time International Ratio 1.0 (0.8-1.1) White Blood Count 7.9 x10^3/uL (4.0-11.0) Red Blood Count 3.02 x10^6/uL (3.50-5.40) Hemoglobin 11.3 g/dL (12.0-15.5) Hematocrit 33.0 % (36.0-47.0) Mean Corpuscular Volume 109 fL (79-100) Mean Corpuscular Hemoglobin 37 pg (25-35) Mean Corpuscular Hemoglobin Concent 34 g/dL (31-37) Red Cell Distribution Width 17.4 % (11.5-14.5) Platelet Count 328 x10^3/uL (140-400) Neutrophils (%) (Auto) 62 % (31-73) Lymphocytes (%) (Auto) 23 % (24-48) Monocytes (%) (Auto) 13 % (0-9) Eosinophils (%) (Auto) 1 % (0-3) Basophils (%) (Auto) 1 % (0-3) Neutrophils # (Auto) 4.9 x10^3/uL (1.8-7.7) Lymphocytes # (Auto) 1.8 x10^3/uL (1.0-4.8) Monocytes # (Auto) 1.0 x10^3/uL (0.0-1.1) Eosinophils # (Auto) 0.1 x10^3/uL (0.0-0.7) Basophils # (Auto) 0.1 x10^3/uL (0.0-0.2) Segmented Neutrophils % 53 % (35-66) Band Neutrophils % 10 % (0-9) Lymphocytes % 24 % (24-48) Atypical Lymphocytes % (Manual) 3 % (0-0) Monocytes % 6 % (0-10) Basophils % 3 % (0-3) Myelocytes % 1 % (0-0) Toxic Granulation Slight Platelet Estimate Adequate (ADEQUATE) Anisocytosis Slight Macrocytosis Slight Sodium Level 139 mmol/L (136-145) Potassium Level 3.8 mmol/L (3.5-5.1) Chloride Level 104 mmol/L (98-107) Carbon Dioxide Level 24 mmol/L (21-32) Anion Gap 11 (6-14) Blood Urea Nitrogen 4 mg/dL (7-20) Creatinine 0.6 mg/dL (0.6-1.0) Estimated GFR (Cockcroft-Gault) 103.4 Glucose Level 101 mg/dL (70-99) Calcium Level 8.4 mg/dL (8.5-10.1) Phosphorus Level 2.7 mg/dL (2.6-4.7) Magnesium Level 1.4 mg/dL (1.8-2.4) Review of Systems Constitutional: yes: alert, other (CONFUSED) Ears/Nose/Throat: Yes: no symptom reported Eyes: Yes: no symptom reported Pulmonary: Yes no symptom reported Cardiovascular: Yes no symptom reported Gastrointestional: Yes: no symptom reported Genitourinary: Yes: no symptom reported Musculoskeletal: Yes: no symptom reported Skin: Yes no symptom reported Psychiatric/Neurological: Yes: no symptom reported Endocrine: Yes: no symptom reported Physical Exam General Appearance: no apparent distress Skin: warm Respiratory: decreased breath sounds Heart: S1S2 Abdomen: soft, bowel sounds present Genitourinary: bladder flat Extremities: atrophy Neurology: alert, oriented, follow commands Assessment Assessment IMP FRANCESCA-RESOLVED HYPOKALEMIA-CORRECTED HYPOMAGNESEMIA HYPOPHOSPHATEMIA-CORRECTED SEPSIS ENCEPHALOPATHY DIARRHEA UTI R CLAVICLE FRACTURE PLAN REPLACE K, PO4 AND MAG NEEDED CONTINUES TO HAVE LARGE ELECTROLYTE DEFICITS PLACEMENT PENDING HYDRATION WILL FOLLOW WINNIE ANTHONY MD Jan 23, 2021 11:48
--- NOTE | 2021-01-23 12:14 | PDOC3 ---
[facility]-Discharge Summary Date of Admission: Date of Admission: Jan 18, 2021 Date of Discharge: Date of Discharge: Jan 23, 2021 Discharge Diagnosis: Discharge Diagnosis: Acute toxic and metabolic encephalopathyimproved Seizure-like activity Sepsis now resolved with blood cultures are negative from [facility] Acute UTI FRANCESCA due to vasomotor nephropathy Rhabdomyolysis Acute electrolyte derangementhypokalemia, hyponatremia, hypomagnesemia, hypophosphatemia. Macrocytic anemia concerning for B12 deficiency History of atrial fibrillation History of hypothyroidism History of fall POA History of anxiety, depression Fibromyalgia Hyperlipidemia CAD Tobaccoism Heavy EtOH dependence Severe protein malnutrition Hospital Course: Hospital Course: By day of discharge patient was medically stable and all her electrolytes have improved. She will continue to be on p.o. antibiotics upon discharge. Her magnesium and her all her other electrolytes were replaced. Rest of her hospital course was uneventful. 01/22/2021 No acute events overnight. Afebrile. Right IJ and antibiotics were removed. Continues to need rehab. Pending recommendations from physical therapy for SNF versus rehab. Patient's chart, labs, images were reviewed and discussed with RN 01/21/2021 No acute events overnight. Patient is more awake and conversive. Sitting next recliner and tolerating diet. No concerns from nursing. Patient's chart, labs, images were reviewed and discussed with RN 55-year-old female who originally presented to [facility] last night apparently family members witnessed a seizure activity. There was a postictal state as well. Prior to the seizure, she had been drinking. She also fell and hit her head a couple times in the kitchen. While at [facility], they noticed that her troponin was little high as well. They were concerned she could have an acute DE. She was transferred here to our ICU where we have consulted Cardiology, Infectious Disease and Nephrology as she has renal failure. Disposition: Disposition/Orders: D/C to Home (Medically stable) Activity: Activity: Resume previous activity Diet: Diet: Soft Medications: Home Meds Reported Medications Carvedilol (CARVEDILOL ) 6.25 Mg Tablet, 6.25 MG PO BIDWMEALS for CARDIAC, TAB 01/17/21 Hydroxyzine Hcl (HYDROXYZINE HCL) 25 Mg Tablet, 1 TAB PO HS for unknown, #30 TAB 01/17/21 Duloxetine Hcl (CYMBALTA) 30 Mg Capsule.dr, 3 CAP PO DAILY for Depression, #30 CAP 5 Refills 01/17/21 Scheduled Carvedilol (Carvedilol ), 6.25 MG PO BIDWMEALS, (Reported) Duloxetine Hcl (Cymbalta), 3 CAP PO DAILY, (Reported) Hydroxyzine Hcl (Hydroxyzine Hcl), 1 TAB PO HS, (Reported) Total Time: Total Time: Total time spent was 35 minutes in preparing scripts, discharge planning with SWI and RN and preparing this discharge summary Patient seen and examined on day of discharge. No acute abnormal findings. Justicifation of Admission Dx: Justifications for Admission: Justification of Admission Dx: Yes CHF: Cardiac Arrhythmias TESHA COLLIER MD Jan 23, 2021 12:14
[2021-01-23] MEDS ORDERED: ATOR20TA58 PO (12:33)
[2021-01-23] MEDS ORDERED: METO50TA4 PO (12:33)
[2021-01-23] MEDS ORDERED: ASPI-886 PO (12:33)
[2021-01-23] MEDS ORDERED: THIA100T22 PO (12:33)
[2021-01-23] MEDS ORDERED: MULT1TAB92 PO (12:33)
[2021-01-23] MEDS ORDERED: CEFD300C PO (12:33)
--- NOTE | 2021-01-23 12:35 | DISCH ---
DISCHARGE INSTRUCTIONS Condition on Discharge Condition on Discharge: Stable Activity After Discharge Activity Instructions for Disc: Resume previous activity Exercise Instruction after Dis: Walk 15 min, 3 x per day Driving Instructions after Dis: Do not drive today Diet after Discharge Diet after Discharge: Cardiac Follow-Up Follow up with: PCP within 2 weeks of discharge Follow Up With: [facility] rehab facility within 3 days of discharge TESHA COLLIER MD Jan 23, 2021 12:34
[2021-01-23] MEDS ORDERED: CEFDINIR 300 MG CAPSULE PO SCH (21:00)
[2021-01-24] MEDS ORDERED: THIAMINE 100 MG TABLET. PO SCH (09:00)
== END 2021-01-23 14:45 | disposition home or self-care (01) | DRG 871 ==
LOC: 2 NORTH 18:58 → 1 WEST ICU 19:04 → 2 NORTH 01-18 15:17
PROVIDERS: ADMIT Internal Medicine; ATTEND Internal Medicine
PROC: 05HY33Z Insertion of Infusion Device into Upper Vein, Percutaneous Approach (ICD-10-PCS; principal; 2021-01-19)
DX: A41.9 Sepsis, unspecified organism (principal); N17.0 Acute kidney failure with tubular necrosis; G92 Toxic encephalopathy; E43 Unspecified severe protein-calorie malnutrition; I21.4 Non-ST elevation (NSTEMI) myocardial infarction; N39.0 Urinary tract infection, site not specified; M62.82 Rhabdomyolysis; Z68.1 Body mass index [BMI] 19.9 or less, adult; E87.1 Hypo-osmolality and hyponatremia; E87.2 Acidosis; F10.231 Alcohol dependence with withdrawal delirium; I42.8 Other cardiomyopathies; D53.9 Nutritional anemia, unspecified; D69.6 Thrombocytopenia, unspecified; E03.9 Hypothyroidism, unspecified; E78.5 Hyperlipidemia, unspecified; E83.39 Other disorders of phosphorus metabolism; E83.42 Hypomagnesemia; E87.6 Hypokalemia; F17.200 Nicotine dependence, unspecified, uncomplicated; I10 Essential (primary) hypertension; I25.10 Atherosclerotic heart disease of native coronary artery without angina pectoris; I25.2 Old myocardial infarction; I48.0 Paroxysmal atrial fibrillation; K05.6 Periodontal disease, unspecified; M79.7 Fibromyalgia; F32.9 Major depressive disorder, single episode, unspecified; F41.9 Anxiety disorder, unspecified; R31.9 Hematuria, unspecified; R19.7 Diarrhea, unspecified; Z81.8 Family history of other mental and behavioral disorders; Z91.19 Patient's noncompliance with other medical treatment and regimen
CPT/HCPCS: 36415; 71045; 80048; 80053; 80061; 80076; 82550; 82607; 83735; 84100; 84443; 84484; 85007; 85025; 85610; 87493; 93005; 93306; J0696; J1160; J2060; J3411; J3475; J3480; J3490; J7030; J7050; Q9956; U0003; 97530-GO; 97530-GP; 97535-GO; G0378